=== PATIENT | female | born 1935 | race Caucasian/White ===

== ENCOUNTER 2017-01-18 08:48 | Inpatient (IN) | payer MEDICARE ==
[2017-01-18] MEDS ORDERED: Sodium Chloride 0.9% 1,000 ML IV SCH ×2 (09:30→10:45)
--- NOTE | 2017-01-18 09:34 | EDM.PDOC ---
ED HPI GENERAL MEDICAL PROBLEM - General Chief Complaint: Gastrointestinal Problem Stated Complaint: STOMACH PAIN/VOMITING Time Seen by Provider: 01/18/17 09:15 Source of Information: Reports: Patient, Provider History Limitations: Reports: No Limitations - History of Present Illness INITIAL COMMENTS - FREE TEXT/NARRATIVE: 81-year-old female who has been treated with 3 rounds of antibiotics for "Lyme' s disease" finished her last course 7 days ago. She's had persistent nausea and vomiting with diarrhea for the past 6-8 days. Intermittent low-grade fevers and lower abdominal cramping. She has a mild headache. She has just been waiting for it to go away, but this morning does not feel like it's improving so went into the urgent care clinic and then was sent over to the emergency room. Her vitals are stable but she feels tired. No syncope. Has not seen blood in the diarrhea or emesis. No shortness of breath or chest pain. She has an appointment in 2 days for lab recheck. Duration: Week(s): (Roughly 1 week of symptoms) Severity: Moderate Associated Symptoms: Reports: Fever/Chills, Nausea/Vomiting, Other (Diarrhea) Lower Abdomen Pain Score (Numeric/FACES): 10 - Related Data Allergies Allergy/AdvReac Type Severity Reaction Status Date / Time Penicillins Allergy Intermediate Hives Verified 07/13/15 07:36 adhesive tape Allergy Cannot Verified 07/13/15 07:36 Remember Bleach (Sodium Hypochlorite) Allergy Rash Verified 01/08/16 14:11 doxycycline Allergy Rash Verified 07/13/15 07:36 oxycodone Allergy Cannot Verified 07/13/15 07:36 Remember latex Allergy Blisters Uncoded 07/13/15 07:36 Home Meds: Home Meds Cholecalciferol (Vitamin D3) [Vitamin D3] 2,000 units PO DAILY 08/04/13 [History ] Cyanocobalamin (Vitamin B12) [Vitamin B12] 1,000 mcg PO DAILY 08/04/13 [History] Cyclobenzaprine [Flexeril] 5 mg PO TID PRN 08/04/13 [History] Docusate Sodium [Doc-Q-Lace] 200 mg PO DAILY 08/04/13 [History] Ipratropium/Albuterol Sulfate [Iprat-Albut 0.5-3(2.5) MG/3 ML] 1 ampule NEB QID PRN 08/04/13 [History] Nitroglycerin [Nitrostat] 0.4 mg SL ASDIRECTED PRN 08/04/13 [History] Ramipril [Altace] 10 mg PO DAILY 08/04/13 [History] Magnesium Oxide 500 mg PO DAILY #60 tab 08/10/13 [Rx] Rosuvastatin [Crestor] 20 mg PO DAILY 08/11/14 [History] Acetaminophen [Tylenol] 325 mg PO Q6H PRN 07/11/15 [History] Acetaminophen/HYDROcodone [[place] 325-5 MG] 1 tab PO Q6H PRN 07/11/15 [History] Albuterol/Ipratropium [Combivent Respimat] 1 puff IH Q4H PRN 07/11/15 [History] Bacitracin [Bacitracin Oint] 1 applic TOP BID 07/11/15 [History] Fluticasone/Salmeterol [Advair 500-50] 1 puff INH BID 07/11/15 [History] Ibuprofen 800 mg PO TID PRN 07/11/15 [History] Trolamine Salicylate/Aloe Vera [Aspercreme 10% Cream] 1 applic TP ASDIRECTED PRN 07/11/15 [History] diphenhydrAMINE [Benadryl] 50 mg PO Q6H PRN 07/11/15 [History] Pantoprazole [Protonix] 40 mg PO DAILY #30 tab.cr 01/11/16 [Rx] Past Medical History HEENT History: Reports: Cataract, Impaired Vision, Sinusitis Cardiovascular History: Reports: Arrhythmia, High Cholesterol, Hypertension, [place] Other Cardiovascular History: "fluid around the heart", CHF Respiratory History: Reports: COPD, SOB Gastrointestinal History: Reports: Colon Polyp, GERD Genitourinary History: Reports: None 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 OB/BYN History: cervix stitch with 4 Musculoskeletal History: Reports: Fracture, Osteoarthritis, Osteoporosis, Other (See Below) Other Musculoskeletal History: degeneration of back Endocrine/Metabolic History: Reports: Hyperthyroidism Hematologic History: Reports: Anemia, Blood Transfusion(s), Iron Deficiency Dermatologic History: Reports: Eczema, Psoriasis - Infectious Disease History Infectious Disease History: Reports: Chicken Pox, Measles, Mumps - Past Surgical History HEENT Surgical History: Reports: Cataract Surgery GI Surgical History: Reports: Appendectomy, Colonoscopy, EGD, Hernia Repair/ Other Female Surgical History: Reports: Section Endocrine Surgical History: Reports: Thyroid Biopsy Dermatological Surgical History: Reports: None Social & Family History - Tobacco Use Smoking Status *Q: Former Smoker Years of Tobacco use: 50 Packs/Tins Daily: 0.2 Used Tobacco, but Quit: Yes Month Tobacco Last Used: years ago Second Hand Smoke Exposure: Yes - Caffeine Use Caffeine Use: Reports: Tea - Alcohol Use Days Per Week of Alcohol Use: 0 - Recreational Drug Use Recreational Drug Use: No ED ROS GENERAL - Review of Systems Review Of Systems: See Below Constitutional: Reports: Fever, Chills, Malaise, Weakness HEENT: Reports: No Symptoms Respiratory: Reports: Cough (Chronic). Denies: Shortness of Breath Cardiovascular: Denies: Chest Pain, Palpitations GI/Abdominal: Reports: Abdominal Pain (Lower abdominal cramping which is intermittent), Diarrhea, Nausea, Vomiting : Reports: No Symptoms Skin: Reports: Bruising (Seems to bruise easily which is chronic) Neurological: Reports: Headache Psychiatric: Reports: No Symptoms ED EXAM, GI/ABD - Physical Exam Exam: See Below Exam Limited By: No Limitations General Appearance: Alert, No Apparent Distress Eyes: Bilateral: Normal Appearance (No jaundice), EOMI Throat/Mouth: Normal Inspection Respiratory/Chest: No Respiratory Distress, Rales (Some perihilar rales with coughing) Cardiovascular: Regular Rate, Rhythm GI/Abdominal Exam: Normal Bowel Sounds, Tender (She does have diffuse mild-to- moderate tenderness to palpation across the lower abdomen, no focal tenderness) Neurological: Alert, Oriented, No Motor/Sensory Deficits Psychiatric: Normal Affect, Normal Mood Skin Exam: Warm, Dry Course - Vital Signs Last Recorded V/S: Last Vital Signs Temp 98.9 F 01/18/17 15:52 Pulse 61 01/18/17 15:52 Resp 20 01/18/17 15:52 BP 128/75 01/18/17 15:52 Pulse Ox 98 01/18/17 15:52 - Orders/Labs/Meds Orders: Active Orders 24 hr Category Date Time Status CULTURE STOOL + SHIGATOX [RM] Stat Lab 01/18/17 09:43 Received Medication Orders Acetaminophen (Tylenol) 650 mg PO Q4H PRN PRN Reason: Pain (Mild 1-3)/fever Hydrocodone Bitart/Acetaminophen ([place] 325-5 Mg) 1 tab PO Q6H PRN PRN Reason: Pain Albuterol/Ipratropium (Duoneb 3.0-0.5 Mg/3 Ml) 3 ml NEB QID PRN PRN Reason: Shortness of Breath Cyclobenzaprine HCl (Flexeril) 5 mg PO TID PRN PRN Reason: Spasms Diphenhydramine HCl (Benadryl) 50 mg PO Q6H PRN PRN Reason: Itching Sodium Chloride (Normal Saline) 1,000 mls @ 100 mls/hr IV ASDIRECTED [facility] Last Admin: 01/18/17 14:26 Dose: 100 mls/hr Metronidazole 500 mg/ Premix 100 mls @ 100 mls/hr IV Q8H [facility] Ibuprofen (Motrin) 600 mg PO Q6H PRN PRN Reason: Pain/Fever Lorazepam (Ativan) 0.5 - 1 mg IVPUSH Q4H PRN PRN Reason: Nausea/Vomiting Mometasone Furoate/Formoterol Fumar (Dulera 200-5 Mcg) 2 puff IH BIDRT [facility] Morphine Sulfate (Morphine) 2 - 4 mg IVPUSH Q2H PRN PRN Reason: Pain (severe 7-10) Ondansetron HCl (Zofran Odt) 4 mg PO Q6H PRN PRN Reason: Nausea able to take PO Ondansetron HCl (Zofran) 4 mg IV Q6H PRN PRN Reason: Nausea/Vomiting Pantoprazole Sodium (Protonix) 40 mg PO ACBREAKFAST [facility] Ramipril (Altace) 10 mg PO DAILY [facility] Rosuvastatin Calcium (Crestor) 20 mg PO DAILY [facility] Labs: Laboratory Tests 01/18/17 01/18/17 Range/Units 09:43 09:43 WBC 12.5 H (4.5-11.0) K/uL RBC 5.28 (3.30-5.50) M/uL Hgb 16.3 H D (12.0-15.0) g/dL Hct 48.2 H (36.0-48.0) % MCV 91 (80-98) fL MCH 31 (27-31) pg MCHC 34 (32-36) % Plt Count 209 (150-400) K/uL Neut % (Auto) 85 H (36-66) % Lymph % (Auto) 8 L (24-44) % [place] % (Auto) 6 (2-6) % Eos % (Auto) 1 L (2-4) % Baso % (Auto) 1 (0-1) % Sodium 141 (140-148) mmol/L Potassium 4.4 (3.6-5.2) mmol/L Chloride 107 (100-108) mmol/L Carbon Dioxide 27 (21-32) mmol/L Anion Gap 7.0 (5.0-14.0) mmol/L BUN 23 H D (7-18) mg/dL Creatinine 1.0 (0.6-1.0) mg/dL Est Cr Clr Drug Dosing 32.23 mL/min Estimated GFR (MDRD) 53 L (>60) Glucose 131 H (74-106) mg/dL Calcium 9.4 (8.5-10.1) mg/dL Total Bilirubin 0.9 D (0.2-1.0) mg/dL AST 17 (15-37) U/L ALT 1 L (12-78) U/L Alkaline Phosphatase 84 (46-116) U/L Total Protein 7.6 (6.4-8.2) g/dL Albumin 3.7 (3.4-5.0) g/dL Globulin 3.9 H (2.3-3.5) g/dL Albumin/Globulin Ratio 1.0 L (1.2-2.2) Meds: Medications Generic Name Dose Route Start Last Admin Trade Name Freq PRN Reason Stop Dose Admin Acetaminophen 650 mg 01/18/17 13:36 Tylenol PO Q4H PRN Pain (Mild 1-3)/fever Hydrocodone Bitart/Acetaminophen 1 tab 01/18/17 13:36 [place] 325-5 Mg PO Q6H PRN Pain Albuterol/Ipratropium 3 ml 01/18/17 13:36 Duoneb 3.0-0.5 Mg/3 Ml NEB QID PRN Shortness of Breath Cyclobenzaprine HCl 5 mg 01/18/17 13:53 Flexeril PO TID PRN Spasms Diphenhydramine HCl 50 mg 01/18/17 13:36 Benadryl PO Q6H PRN Itching Sodium Chloride 1,000 mls @ 100 mls/hr 01/18/17 13:36 01/18/17 14:26 Normal Saline IV 100 mls/hr ASDIRECTED SAMUEL Administration Metronidazole 500 mg/ Premix 100 mls @ 100 mls/hr 01/18/17 20:00 IV Q8H [facility]EL Ibuprofen 600 mg 01/18/17 13:36 Motrin PO Q6H PRN Pain/Fever Lorazepam 0.5 - 1 mg 01/18/17 13:36 Ativan IVPUSH Q4H PRN Nausea/Vomiting Mometasone Furoate/Formoterol Fumar 2 puff 01/18/17 21:00 Dulera 200-5 Mcg IH BIDRT [facility] Morphine Sulfate 2 - 4 mg 01/18/17 13:36 Morphine IVPUSH Q2H PRN Pain (severe 7-10) Ondansetron HCl 4 mg 01/18/17 13:36 Zofran Odt PO Q6H PRN Nausea able to take PO Ondansetron HCl 4 mg 01/18/17 13:36 Zofran IV Q6H PRN Nausea/Vomiting Pantoprazole Sodium 40 mg 01/19/17 07:30 Protonix PO ACBREAKFAST [facility] Ramipril 10 mg 01/19/17 09:00 Altace PO DAILY [facility] Rosuvastatin Calcium 20 mg 01/19/17 09:00 Crestor PO DAILY [facility] Discontinued Medications Generic Name Dose Route Start Last Admin Trade Name Freq PRN Reason Stop Dose Admin Sodium Chloride 1,000 mls @ 1,000 mls/hr 01/18/17 09:30 01/18/17 09:44 Normal Saline IV 1,000 mls/hr ASDIRECTED SAMUEL Administration Sodium Chloride 1,000 mls @ 500 mls/hr 01/18/17 10:45 01/18/17 11:04 Normal Saline IV 500 mls/hr ASDIRECTED [facility]UEL Administration Metronidazole 500 mg/ Premix 100 mls @ 100 mls/hr 01/18/17 12:30 01/18/17 12: 40 IV 100 mls/hr Q8H [facility]UEL Administration - Re-Assessments/Exams Free Text/Narrative Re-Assessment/Exam: 01/18/17 09:34 Stool was obtained for C. difficile testing, WBC and culture. An IV was started and the patient will be given 1 L of normal saline after a CBC and CMP are drawn. 01/18/17 11:06 Blood work was fairly reassuring but her stool did show many WBCs and ultimately was positive for C. difficile. We discussed outpatient versus inpatient treatment, I discussed this with the hospitalist and she'll be admitted for at least 1-2 days of treatment as an inpatient. Departure - Departure Time of Disposition: 13:17 Disposition: Admitted As Inpatient 67 Condition: Fair Clinical Impression: Vomiting, Diarrhea, C. difficile enteritis - Discharge Information - My Orders Last 24 Hours: My Active Orders 01/18/17 09:43 CULTURE STOOL + SHIGATOX [RM] Stat - Assessment/Plan Last 24 Hours: My Active Orders 01/18/17 09:43 CULTURE STOOL + SHIGATOX [RM] Stat
[2017-01-18] MEDS ORDERED: metroNIDAZOLE/Normal Saline 500 MG in Premix Bag 1 BAG IV SCH ×2 (12:15→12:30)
--- NOTE | 2017-01-18 12:28 | PCM.HP ---
H&P History of Present Illness - General Date of Service: 01/18/17 Admit Problem/Dx: Admission Diagnosis/Problem Admission Diagnosis/Problem Clostridium difficile diarrhea Source of Information: Patient, Family, Provider History Limitations: Reports: No Limitations - History of Present Illness Initial Comments - Free Text/Narative: Rosaura presents to the emergency room today with complaints of nausea, vomiting and diarrhea. Symptoms have been present for approximately the last week and have been progressively getting worse. She reports multiple episodes of vomiting each day as well as multiple episodes of watery diarrhea. She reports mild to moderate left lower quadrant abdominal pain that is crampy in nature. This comes and goes but is at its worst around the time of a bowel movement. Her usual pain medications have not helped her abdominal pain. No obvious triggers to make things worse other than the bowel movements. She has not had much to eat or drink in the past few days other than some dietary supplements. She has subjective fevers but no chills. She does not complain of chest pain, shortness of breath or change in bladder habits. She does not have a cough. She did recently complete a prolonged course of antibiotics for Lyme disease and also had antibiotics for what appears to be a urinary tract infection. Workup in the emergency room revealed significant dehydration as well as stool sample positive for Clostridium difficile. With her vomiting and poor intake I think she would benefit from hydration and IV medications to stabilize her condition before outpatient management is initiated. Lower Abdomen Pain Score (Numeric/FACES): 10 - Related Data Allergies/Adverse Reactions: Allergies Allergy/AdvReac Type Severity Reaction Status Date / Time Penicillins Allergy Intermediate Hives Verified 07/13/15 07:36 adhesive tape Allergy Cannot Verified 07/13/15 07:36 Remember Bleach (Sodium Hypochlorite) Allergy Rash Verified 01/08/16 14:11 doxycycline Allergy Rash Verified 07/13/15 07:36 oxycodone Allergy Cannot Verified 07/13/15 07:36 Remember latex Allergy Blisters Uncoded 07/13/15 07:36 Home Medications: Home Meds Cholecalciferol (Vitamin D3) [Vitamin D3] 2,000 units PO DAILY 08/04/13 [History ] Cyanocobalamin (Vitamin B12) [Vitamin B12] 1,000 mcg PO DAILY 08/04/13 [History] Cyclobenzaprine [Flexeril] 5 mg PO TID PRN 08/04/13 [History] Docusate Sodium [Doc-Q-Lace] 200 mg PO DAILY 08/04/13 [History] Ipratropium/Albuterol Sulfate [Iprat-Albut 0.5-3(2.5) MG/3 ML] 1 ampule NEB QID PRN 08/04/13 [History] Nitroglycerin [Nitrostat] 0.4 mg SL ASDIRECTED PRN 08/04/13 [History] Ramipril [Altace] 10 mg PO DAILY 08/04/13 [History] Magnesium Oxide 500 mg PO DAILY #60 tab 08/10/13 [Rx] Rosuvastatin [Crestor] 20 mg PO DAILY 08/11/14 [History] Acetaminophen [Tylenol] 325 mg PO Q6H PRN 07/11/15 [History] Acetaminophen/HYDROcodone [[place] 325-5 MG] 1 tab PO Q6H PRN 07/11/15 [History] Albuterol/Ipratropium [Combivent Respimat] 1 puff IH Q4H PRN 07/11/15 [History] Bacitracin [Bacitracin Oint] 1 applic TOP BID 07/11/15 [History] Fluticasone/Salmeterol [Advair 500-50] 1 puff INH BID 07/11/15 [History] Ibuprofen 800 mg PO TID PRN 07/11/15 [History] Trolamine Salicylate/Aloe Vera [Aspercreme 10% Cream] 1 applic TP ASDIRECTED PRN 07/11/15 [History] diphenhydrAMINE [Benadryl] 50 mg PO Q6H PRN 07/11/15 [History] Pantoprazole [Protonix] 40 mg PO DAILY #30 tab.cr 01/11/16 [Rx] Past Medical History HEENT History: Reports: Cataract, Impaired Vision, Sinusitis Cardiovascular History: Reports: Arrhythmia, High Cholesterol, Hypertension, [place] Other Cardiovascular History: "fluid around the heart", CHF Respiratory History: Reports: COPD, SOB Gastrointestinal History: Reports: Colon Polyp, GERD Genitourinary History: Reports: 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 with 4 Musculoskeletal History: Reports: Fracture, Osteoarthritis, Osteoporosis, Other (See Below) Other Musculoskeletal History: degeneration of back Endocrine/Metabolic History: Reports: Hyperthyroidism Hematologic History: Reports: Anemia, Blood Transfusion(s), Iron Deficiency Dermatologic History: Reports: Eczema, Psoriasis - Infectious Disease History Infectious Disease History: Reports: Chicken Pox, Measles, Mumps - Past Surgical History HEENT Surgical History: Reports: Cataract Surgery GI Surgical History: Reports: Appendectomy, Colonoscopy, EGD, Hernia Repair/ Other Female Surgical History: Reports: Section Endocrine Surgical History: Reports: Thyroid Biopsy Dermatological Surgical History: Reports: None Social & Family History - Family History Oncologic: Reports: Colon (mom) - Tobacco Use Smoking Status *Q: Former Smoker Years of Tobacco use: 50 Packs/Tins Daily: 0.2 Used Tobacco, but Quit: Yes Month Tobacco Last Used: years ago Second Hand Smoke Exposure: Yes - Caffeine Use Caffeine Use: Reports: Tea - Alcohol Use Days Per Week of Alcohol Use: 0 - Recreational Drug Use Recreational Drug Use: No H&P Review of Systems - Review of Systems: Review Of Systems: See Below Free Text/Narrative: A complete 12 point review of systems was obtained. Pertinent positives and negatives are noted in the history of present illness. All other systems were reviewed and were negative except as noted. Exam - Exam Exam: See Below - Vital Signs Vital Signs: Last Vital Signs Temp 36.5 C 01/18/17 10:33 Pulse 67 01/18/17 10:33 Resp 18 01/18/17 10:33 BP 132/74 01/18/17 10:33 Pulse Ox 95 01/18/17 10:33 Weight: 53 kg - Exam Quality Assessment: No: Supplemental Oxygen General: Alert, Oriented, Cooperative. No: Mild Distress HEENT: Conjunctiva Clear. No: Mucosa Moist & Celoron (dry), Scleral Icterus Neck: Supple, Trachea Midline. No: Lymphadenopathy Lungs: Normal Respiratory Effort, Wheezing (mild exp wheezing ) Cardiovascular: Regular Rate, Regular Rhythm. No: Systolic Murmur GI/Abdominal Exam: Normal Bowel Sounds, Soft, No Distention, Tender (mild LLQ) Back Exam: Normal Inspection, Full Range of Motion Extremities: Normal Inspection, No Pedal Edema. No: Increased Warmth Peripheral Pulses: 2+: Dorsalis Pedis (L), Dorsalis Pedis (R) Skin: Warm, Dry Neuro Extensive - Mental Status: Alert, Oriented x3, Nl Response to Commands Neuro Extensive - Motor, Sensory, Reflexes: CN II-XII Intact. No: Dysarthria, Abnormal Motor, Tremor Psychiatric: Alert, Normal Affect - Patient Data Lab Results Last 24 hrs: Laboratory Results - last 24 hr 01/18/17 01/18/17 Range/Units 09:43 09:43 WBC 12.5 H (4.5-11.0) K/uL RBC 5.28 (3.30-5.50) M/uL Hgb 16.3 H D (12.0-15.0) g/dL Hct 48.2 H (36.0-48.0) % MCV 91 (80-98) fL MCH 31 (27-31) pg MCHC 34 (32-36) % Plt Count 209 (150-400) K/uL Neut % (Auto) 85 H (36-66) % Lymph % (Auto) 8 L (24-44) % [place] % (Auto) 6 (2-6) % Eos % (Auto) 1 L (2-4) % Baso % (Auto) 1 (0-1) % Sodium 141 (140-148) mmol/L Potassium 4.4 (3.6-5.2) mmol/L Chloride 107 (100-108) mmol/L Carbon Dioxide 27 (21-32) mmol/L Anion Gap 7.0 (5.0-14.0) mmol/L BUN 23 H D (7-18) mg/dL Creatinine 1.0 (0.6-1.0) mg/dL Est Cr Clr Drug Dosing 32.23 mL/min Estimated GFR (MDRD) 53 L (>60) Glucose 131 H (74-106) mg/dL Calcium 9.4 (8.5-10.1) mg/dL Total Bilirubin 0.9 D (0.2-1.0) mg/dL AST 17 (15-37) U/L ALT 1 L (12-78) U/L Alkaline Phosphatase 84 (46-116) U/L Total Protein 7.6 (6.4-8.2) g/dL Albumin 3.7 (3.4-5.0) g/dL Globulin 3.9 H (2.3-3.5) g/dL Albumin/Globulin Ratio 1.0 L (1.2-2.2) Result Diagrams: 01/18/17 09:43 01/18/17 09:43 [facility] Results Last 24 hrs: Microbiology 01/18/17 09:43 Clostridium difficile (PCR) - Final Stool / Feces Positive C. Diff Toxin 01/18/17 09:43 Stool for WBCs - Final Stool / Feces *Q Meaningful Use (ADM) - VTE *Q VTE Criteria *Q: - VTE Risk Assess *Q Each Risk Factor Represents 1 Point: Abnormal Pulmonary Function (COPD) Total Score 1 Point Risk Factors: 1 Each Risk Factor Represents 2 Points: None Total Score 2 Point Risk Factors: 0 Each Risk Factor Represents 3 Points: Age 75 Years or Greater Total Score 3 Point Risk Factors: 3 Each Risk Factor Represents 5 Points: None Total Score 5 Point Risk Factors: 0 Venous Thromboembolism Risk Factor Score *Q: 4 - Stroke *Q Stroke Criteria *Q: - AMI *Q AMI Criteria *Q: - Problem List (1) Clostridium difficile colitis SNOMED Code(s): 957604588 ICD Code: A04.7 - ENTEROCOLITIS DUE TO CLOSTRIDIUM DIFFICILE Status: Acute Current Visit: Yes (2) COPD, Moderate chronic obstructive pulmonary disease SNOMED Code(s): 169225749 ICD Code: J44.9 - CHRONIC OBSTRUCTIVE PULMONARY DISEASE, UNSPECIFIED Status : Chronic Priority: Medium Current Visit: No Problem List Initiated/Reviewed/Updated: Yes Orders Last 24hrs: Active Orders 24 hr Category Date Time Status Patient Status Manage Transfer [TRANSFER] Routine ADT 01/18/17 12:14 Ordered CULTURE STOOL + SHIGATOX [RM] Stat Lab 01/18/17 09:43 Received Sodium Chloride 0.9% [Normal Saline] 1,000 ml Med 01/18/17 09:30 Active IV ASDIRECTED Sodium Chloride 0.9% [Normal Saline] 1,000 ml Med 01/18/17 10:45 Active IV ASDIRECTED metroNIDAZOLE/Normal Saline [Flagyl 500 MG in NS 100 ML Med 01/18/17 12:30 Active ] 500 mg Premix Bag 1 bag IV Q8H Resuscitation Status Routine Resus Stat 01/18/17 12:16 Ordered Medication Orders Sodium Chloride (Normal Saline) 1,000 mls @ 1,000 mls/hr IV ASDIRECTED SAMUEL Last Admin: 01/18/17 09:44 Dose: 1,000 mls/hr Sodium Chloride (Normal Saline) 1,000 mls @ 500 mls/hr IV ASDIRECTED SAMUEL Last Admin: 01/18/17 11:04 Dose: 500 mls/hr Metronidazole 500 mg/ Premix 100 mls @ 100 mls/hr IV Q8H [facility] Assessment/Plan Comment:: Assessment and plan - Clostridium difficile colitis - patient has had recent antibiotic therapy. Moderate dehydration but no evidence for sepsis. Not safe for outpatient management with her blood so as of vomiting and dehydration. -IV metronidazole -IV fluids -Pain control -Nausea medication -Clear liquids -Probiotics -Contact precautions COPD - Chronic, stable and not oxygen dependent. No evidence for acute exacerbation. -Continue home medications [] - [] - Maintenance issues - - DVT prophylaxis - mechanical - GI prophylaxis - PPI - Nutrition - clear liquids - Hsu catheter - not indicated CODE STATUS - full code Admission justification - This patient will be admitted for inpatient services and is medically appropriate meeting medical necessity for inpatient admission as outlined in my documentation. I reasonably expect the patient will require inpatient services that span a period time over 2 midnights. I reasonably expect this patient to be discharged or transferred within 96 hours [facility]. Disposition - anticipate discharge to home after the hospital stay Primary care physician - Dr. Rj Mrarero M.D.
[2017-01-18] MEDS ORDERED: Ondansetron 4 MG Tab.DIS PO PRN (13:36)
[2017-01-18] MEDS ORDERED: Acetaminophen 325 MG Tab PO PRN (13:36)
[2017-01-18] MEDS ORDERED: Acetaminophen/HYDROcodone 325-5 MG Tab PO PRN (13:36)
[2017-01-18] MEDS ORDERED: LORazepam 2 MG/ML MDV IVPUSH PRN (13:36)
[2017-01-18] MEDS ORDERED: Non-Formulary Medication 1 Each (Cyclobenzaprine [Flexeril] 5 MG) PO PRN (13:36)
[2017-01-18] MEDS ORDERED: Morphine 2 MG/ML Syringe IVPUSH PRN (13:36)
[2017-01-18] MEDS ORDERED: Ondansetron 4 MG/2 ML SDV IV PRN (13:36)
[2017-01-18] MEDS ORDERED: diphenhydrAMINE 25 MG Cap PO PRN (13:36)
[2017-01-18] MEDS ORDERED: Albuterol/Ipratropium 3.0-0.5 MG/3 ML Neb Soln NEB PRN (13:36)
[2017-01-18] MEDS ORDERED: Ibuprofen 600 MG Tab PO PRN (13:36)
[2017-01-18] MEDS ORDERED: Cyclobenzaprine 10 MG Tab PO PRN (13:53)
[2017-01-18] MEDS: Sodium Chloride 0.9% 1,000 ML IV SCH (14:26)
[2017-01-18] MEDS: metroNIDAZOLE/Normal Saline 500 MG in Premix Bag 1 BAG IV SCH (19:32)
[2017-01-18] MEDS: Formoterol/Mometasone 200-5 MCG 8.8 GM Inhaler IH SCH (20:38)
[2017-01-18] MEDS ORDERED: Non-Formulary Medication 1 Each (Fluticasone/Salmeterol [Advair 500-50] 1 PUFF) INH SCH (21:00)
[2017-01-19] MEDS: metroNIDAZOLE/Normal Saline 500 MG in Premix Bag 1 BAG IV SCH ×2 (03:21→12:39)
[2017-01-19] MEDS: Formoterol/Mometasone 200-5 MCG 8.8 GM Inhaler IH SCH ×2 (07:55→20:03)
[2017-01-19] MEDS: Pantoprazole 40 MG Tab.CR PO SCH (07:56)
[2017-01-19] MEDS: Rosuvastatin 10 MG Tab PO SCH (08:00)
[2017-01-19] MEDS ORDERED: Non-Formulary Medication 1 Each (Rosuvastatin [Crestor] 20 MG) PO SCH (09:00)
[2017-01-19] MEDS: Potassium Chloride 20 MEQ, Lidocaine 1% 2 ML in Sodium Chloride 0.9% 100 ML IV SCH ×2 (11:09→14:20)
[2017-01-19] MEDS: Sodium Chloride 0.9% 1,000 ML IV SCH (12:36)
--- NOTE | 2017-01-19 16:49 | PCM.PN ---
- General Info Date of Service: 01/19/17 Functional Status: Reports: Pain Controlled, Tolerating Diet - Review of Systems General: Denies: Fever Gastrointestinal: Denies: Diarrhea Systems Review Comment:: No acute events overnight. She has not had any diarrhea and has not had any vomiting. She has tolerated clear liquids well with no increase in symptoms. She has been afebrile. Tolerating current management. Clinically she feels much better today. - Patient Data Vitals - Most Recent: Last Vital Signs Temp 36.4 C 01/19/17 14:37 Pulse 51 L 01/19/17 14:37 Resp 18 01/19/17 14:37 BP 129/76 01/19/17 14:37 Pulse Ox 97 01/19/17 14:37 Weight - Most Recent: 53 kg I&O - Last 24 Hours: Intake & Output 01/19/17 01/19/17 01/19/17 06:59 14:59 22:59 Intake Total 1040 700 Output Total 1600 1100 200 Balance -560 -400 -200 Lab Results Last 24 Hours: Laboratory Results - last 24 hr 01/19/17 01/19/17 Range/Units 05:11 05:48 WBC 6.4 (4.5-11.0) K/uL RBC 4.21 (3.30-5.50) M/uL Hgb 13.0 D (12.0-15.0) g/dL Hct 38.9 (36.0-48.0) % MCV 92 (80-98) fL MCH 31 (27-31) pg MCHC 33 (32-36) % Plt Count 159 (150-400) K/uL Sodium 143 (140-148) mmol/L Potassium 3.4 L (3.6-5.2) mmol/L Chloride 111 H (100-108) mmol/L Carbon Dioxide 24 (21-32) mmol/L Anion Gap 11.4 (5.0-14.0) mmol/L BUN 14 (7-18) mg/dL Creatinine 0.7 (0.6-1.0) mg/dL Est Cr Clr Drug Dosing 46.04 mL/min Estimated GFR (MDRD) > 60 (>60) Glucose 88 (74-106) mg/dL Calcium 8.2 L (8.5-10.1) mg/dL Med Orders - Current: Current Medications Acetaminophen (Tylenol) 650 mg PO Q4H PRN PRN Reason: Pain (Mild 1-3)/fever Hydrocodone Bitart/Acetaminophen ([place] 325-5 Mg) 1 tab PO Q6H PRN PRN Reason: Pain Albuterol/Ipratropium (Duoneb 3.0-0.5 Mg/3 Ml) 3 ml NEB QID PRN PRN Reason: Shortness of Breath Cyclobenzaprine HCl (Flexeril) 5 mg PO TID PRN PRN Reason: Spasms Diphenhydramine HCl (Benadryl) 50 mg PO Q6H PRN PRN Reason: Itching Sodium Chloride (Normal Saline) 1,000 mls @ 100 mls/hr IV ASDIRECTED [facility] Last Admin: 01/19/17 12:36 Dose: 100 mls/hr Metronidazole 500 mg/ Premix 100 mls @ 100 mls/hr IV Q8H [facility] Last Admin: 01/19/17 12:39 Dose: 100 mls/hr Ibuprofen (Motrin) 600 mg PO Q6H PRN PRN Reason: Pain/Fever Lorazepam (Ativan) 0.5 - 1 mg IVPUSH Q4H PRN PRN Reason: Nausea/Vomiting Mometasone Furoate/Formoterol Fumar (Dulera 200-5 Mcg) 2 puff IH BIDRT [facility] Last Admin: 01/19/17 07:55 Dose: 2 puff Morphine Sulfate (Morphine) 2 - 4 mg IVPUSH Q2H PRN PRN Reason: Pain (severe 7-10) Ondansetron HCl (Zofran Odt) 4 mg PO Q6H PRN PRN Reason: Nausea able to take PO Ondansetron HCl (Zofran) 4 mg IV Q6H PRN PRN Reason: Nausea/Vomiting Pantoprazole Sodium (Protonix) 40 mg PO ACBREAKFAST [facility] Last Admin: 01/19/17 07:56 Dose: 40 mg Ramipril (Altace) 10 mg PO DAILY [facility] Last Admin: 01/19/17 07:59 Dose: 10 mg Rosuvastatin Calcium (Crestor) 20 mg PO DAILY [facility] Last Admin: 01/19/17 08:00 Dose: 20 mg Discontinued Medications Sodium Chloride (Normal Saline) 1,000 mls @ 1,000 mls/hr IV ASDIRECTED [facility] Last Admin: 01/18/17 09:44 Dose: 1,000 mls/hr Sodium Chloride (Normal Saline) 1,000 mls @ 500 mls/hr IV ASDIRECTED [facility] Last Admin: 01/18/17 11:04 Dose: 500 mls/hr Metronidazole 500 mg/ Premix 100 mls @ 100 mls/hr IV Q8H [facility] Last Admin: 01/18/17 12:40 Dose: 100 mls/hr Potassium Chloride 20 meq/Lidocaine HCl 2 ml/ Sodium Chloride 112 mls @ 56 mls/ hr IV Q2H [facility] Stop: 01/19/17 14:29 Last Admin: 01/19/17 14:20 Dose: 56 mls/hr - Exam Quality Assessment: No: Supplemental Oxygen General: Alert, Oriented, Cooperative, No Acute Distress Neck: Supple Lungs: Normal Respiratory Effort Cardiovascular: Regular Rate, Regular Rhythm GI/Abdominal Exam: Soft, No Distention Extremities: Normal Inspection, No Pedal Edema Skin: Warm, Dry Psy/Mental Status: Alert, Normal Affect - Problem List & Annotations (1) Clostridium difficile colitis SNOMED Code(s): 125509243 Code(s): A04.7 - ENTEROCOLITIS DUE TO CLOSTRIDIUM DIFFICILE Status: Acute Current Visit: Yes (2) COPD, Moderate chronic obstructive pulmonary disease SNOMED Code(s): 602705832 Code(s): J44.9 - CHRONIC OBSTRUCTIVE PULMONARY DISEASE, UNSPECIFIED Status : Chronic Priority: Medium Current Visit: No - Problem List Review Problem List Initiated/Reviewed/Updated: Yes - My Orders Last 24 Hours: My Active Orders 01/18/17 20:00 metroNIDAZOLE/Normal Saline [Flagyl 500 MG in NS 100 ML] 500 mg Premix Bag 1 bag IV Q8H 01/18/17 21:00 Mometasone/Formoterol [Dulera 200-5 MCG] 2 puff IH BIDRT 01/19/17 09:00 Rosuvastatin [Crestor] 20 mg PO DAILY 01/19/17 16:48 Convert IV to Saline Lock [OM.PC] Routine 01/19/17 21:00 metroNIDAZOLE 500 mg PO TID 01/19/17 Dinner Regular Diet [DIET] - Plan Plan:: Assessment and plan - Clostridium difficile colitis - dramatic clinical improvement overnight with essentially resolution of vomiting and significant improvement in her diarrhea. Tolerating clear liquids so far. -IV metronidazole, transition to oral medications later in the day -Saline lock IV fluids -Pain control -Nausea medication -Advance diet this afternoon -Probiotics -Contact precautions COPD - Chronic, stable and not oxygen dependent. No evidence for acute exacerbation. -Continue home medications Maintenance issues - - DVT prophylaxis - mechanical - GI prophylaxis - PPI - Nutrition - clear liquids Disposition - anticipate discharge to home after the hospital stay, likely tomorrow if stable overnight Efrem Marrero M.D.
[2017-01-19] MEDS: metroNIDAZOLE 250 MG Tab PO SCH (20:07)
[2017-01-20 06:53] VITALS: BP 151/73
[2017-01-20] MEDS: Pantoprazole 40 MG Tab.CR PO SCH (07:07)
[2017-01-20] MEDS: Formoterol/Mometasone 200-5 MCG 8.8 GM Inhaler IH SCH (07:07)
[2017-01-20] MEDS: Rosuvastatin 10 MG Tab PO SCH (09:27)
[2017-01-20] MEDS: metroNIDAZOLE 250 MG Tab PO SCH (09:28)
--- NOTE | 2017-01-20 11:03 | PCM.DCSUM1 ---
Discharge Summary - Hospital Course Brief History: Ms. Domnigo is an 81-year-old woman who was admitted through the emergency department with abdominal pain, nausea vomiting, and diarrhea secondary to C. difficile colitis. - Discharge Data Discharge Date: 01/20/17 Discharge Disposition: Home, Self-Care 01 Condition: Fair - Discharge Diagnosis/Problem(s) (1) Vomiting SNOMED Code(s): 714273578 ICD Code: R11.10 - VOMITING, UNSPECIFIED Status: Acute Current Visit: Yes (2) Diarrhea SNOMED Code(s): 87378438 ICD Code: R19.7 - DIARRHEA, UNSPECIFIED Status: Acute Current Visit: Yes (3) Clostridium difficile colitis SNOMED Code(s): 144602177 ICD Code: A04.7 - ENTEROCOLITIS DUE TO CLOSTRIDIUM DIFFICILE Status: Acute Current Visit: Yes - Patient Summary/Data Hospital Course: Ms. Domingo is an 81-year-old woman who's had recent difficulty with fevers, felt to have probable tickborne illness and had received 2 courses of oral doxycycline. For a few days prior to admission developed diarrhea, abdominal pain, as well as nausea and vomiting. On evaluation in the emergency department , stool was positive for C. difficile. Was felt that her symptoms were likely related to Clostridium difficile colitis. She was started on oral Flagyl as well as IV fluids for hydration and antiemetic therapy. Over the next 2 days of hospitalization she was noted to have no significant temperature elevations and had no further difficulty with diarrhea. By the day of discharge her abdominal pain had resolved and she had no further nausea vomiting was tolerating a regular diet. She will remain on a regular diet and activity will be as tolerated. She will receive an additional 12 days of oral antibiotic therapy with Flagyl 500 mg 3 times a day. She is also encouraged to take a probiotic 2 tablets twice daily for at least the next month. Follow-up appointment will be scheduled with Dr. De La Rosa within one week. - Patient Instructions Diet: Usual Diet as Tolerated Activity: As Tolerated Other/Special Instructions: Please schedule follow-up appointment with Dr. De La Rosa within one week. - Discharge Plan Prescriptions/Med Rec: Lactobacillus Acidophilus [Probiotic] 2 each PO BID #120 capsule metroNIDAZOLE 500 mg PO TID #36 tablet Home Medications: Home Meds Cholecalciferol (Vitamin D3) [Vitamin D3] 2,000 units PO DAILY 08/04/13 [History ] Cyanocobalamin (Vitamin B12) [Vitamin B12] 1,000 mcg PO DAILY 08/04/13 [History] Cyclobenzaprine [Flexeril] 5 mg PO TID PRN 08/04/13 [History] Docusate Sodium [Doc-Q-Lace] 200 mg PO DAILY 08/04/13 [History] Ipratropium/Albuterol Sulfate [Iprat-Albut 0.5-3(2.5) MG/3 ML] 1 ampule NEB QID PRN 08/04/13 [History] Nitroglycerin [Nitrostat] 0.4 mg SL ASDIRECTED PRN 08/04/13 [History] Ramipril [Altace] 10 mg PO DAILY 08/04/13 [History] Magnesium Oxide 500 mg PO DAILY #60 tab 08/10/13 [Rx] Rosuvastatin [Crestor] 20 mg PO DAILY 08/11/14 [History] Acetaminophen [Tylenol] 325 mg PO Q6H PRN 07/11/15 [History] Acetaminophen/HYDROcodone [[place] 325-5 MG] 1 tab PO Q6H PRN 07/11/15 [History] Albuterol/Ipratropium [Combivent Respimat] 1 puff IH Q4H PRN 07/11/15 [History] Bacitracin [Bacitracin Oint] 1 applic TOP BID 07/11/15 [History] Fluticasone/Salmeterol [Advair 500-50] 1 puff INH BID 07/11/15 [History] Ibuprofen 800 mg PO TID PRN 07/11/15 [History] Trolamine Salicylate/Aloe Vera [Aspercreme 10% Cream] 1 applic TP ASDIRECTED PRN 07/11/15 [History] diphenhydrAMINE [Benadryl] 50 mg PO Q6H PRN 07/11/15 [History] Pantoprazole [ProTONIX] 40 mg PO DAILY #30 tab.cr 01/11/16 [Rx] Lactobacillus Acidophilus [Probiotic] 2 each PO BID #120 capsule 01/20/17 [Rx] metroNIDAZOLE 500 mg PO TID #36 tablet 01/20/17 [Rx] Referrals: Maurice De La Rosa MD [Primary Care Provider] - - Patient Data Vitals - Most Recent: Last Vital Signs Temp 98.2 F 01/20/17 06:52 Pulse 63 01/20/17 06:52 Resp 18 01/20/17 06:52 BP 151/73 H 01/20/17 09:28 Pulse Ox 95 01/20/17 06:52 Weight - Most Recent: 128 lb 8.013 oz I&O - Last 24 hours: Intake & Output 01/19/17 01/20/17 01/20/17 22:59 06:59 14:59 Intake Total 1737 480 Output Total 200 1000 Balance 1537 -1000 480 Med Orders - Current: Current Medications Acetaminophen (Tylenol) 650 mg PO Q4H PRN PRN Reason: Pain (Mild 1-3)/fever Hydrocodone Bitart/Acetaminophen ([place] 325-5 Mg) 1 tab PO Q6H PRN PRN Reason: Pain Albuterol/Ipratropium (Duoneb 3.0-0.5 Mg/3 Ml) 3 ml NEB QID PRN PRN Reason: Shortness of Breath Cyclobenzaprine HCl (Flexeril) 5 mg PO TID PRN PRN Reason: Spasms Diphenhydramine HCl (Benadryl) 50 mg PO Q6H PRN PRN Reason: Itching Ibuprofen (Motrin) 600 mg PO Q6H PRN PRN Reason: Pain/Fever Metronidazole (Metronidazole) 500 mg PO TID [facility] Last Admin: 01/20/17 09:28 Dose: 500 mg Mometasone Furoate/Formoterol Fumar (Dulera 200-5 Mcg) 2 puff IH BIDRT [facility] Last Admin: 01/20/17 07:07 Dose: 2 puff Morphine Sulfate (Morphine) 2 - 4 mg IVPUSH Q2H PRN PRN Reason: Pain (severe 7-10) Ondansetron HCl (Zofran Odt) 4 mg PO Q6H PRN PRN Reason: Nausea able to take PO Ondansetron HCl (Zofran) 4 mg IV Q6H PRN PRN Reason: Nausea/Vomiting Pantoprazole Sodium (Protonix) 40 mg PO ACBREAKFAST [facility] Last Admin: 01/20/17 07:07 Dose: 40 mg Ramipril (Altace) 10 mg PO DAILY [facility] Last Admin: 01/20/17 09:28 Dose: 10 mg Rosuvastatin Calcium (Crestor) 20 mg PO DAILY [facility] Last Admin: 01/20/17 09:27 Dose: 20 mg Discontinued Medications Sodium Chloride (Normal Saline) 1,000 mls @ 1,000 mls/hr IV ASDIRECTED [facility] Last Admin: 01/18/17 09:44 Dose: 1,000 mls/hr Sodium Chloride (Normal Saline) 1,000 mls @ 500 mls/hr IV ASDIRECTED [facility] Last Admin: 01/18/17 11:04 Dose: 500 mls/hr Metronidazole 500 mg/ Premix 100 mls @ 100 mls/hr IV Q8H [facility] Last Admin: 01/18/17 12:40 Dose: 100 mls/hr Sodium Chloride (Normal Saline) 1,000 mls @ 100 mls/hr IV ASDIRECTED [facility] Last Admin: 01/19/17 12:36 Dose: 100 mls/hr Metronidazole 500 mg/ Premix 100 mls @ 100 mls/hr IV Q8H [facility] Last Admin: 01/19/17 12:39 Dose: 100 mls/hr Potassium Chloride 20 meq/Lidocaine HCl 2 ml/ Sodium Chloride 112 mls @ 56 mls/ hr IV Q2H [facility] Stop: 01/19/17 14:29 Last Admin: 01/19/17 14:20 Dose: 56 mls/hr Lorazepam (Ativan) 0.5 - 1 mg IVPUSH Q4H PRN PRN Reason: Nausea/Vomiting *Q Meaningful Use (DIS) - VTE *Q VTE Criteria *Q: - Stroke *Q Stroke Criteria *Q: - AMI *Q AMI Criteria *Q:
== END 2017-01-20 14:10 | disposition home or self-care (01) | DRG 373 ==
LOC: JP.ED 08:48 → JP.MS 12:14
PROVIDERS: ADMIT Internal Medicine; ATTEND Hospitalist
DX: A04.7 Enterocolitis due to Clostridium difficile (principal); E86.0 Dehydration; I11.0 Hypertensive heart disease with heart failure; I50.9 Heart failure, unspecified; J44.9 Chronic obstructive pulmonary disease, unspecified; Z87.891 Personal history of nicotine dependence; R11.2 Nausea with vomiting, unspecified; R19.7 Diarrhea, unspecified; R10.9 Unspecified abdominal pain; B94.8 Sequelae of other specified infectious and parasitic diseases; Z92.29 Personal history of other drug therapy; M19.90 Unspecified osteoarthritis, unspecified site; K21.9 Gastro-esophageal reflux disease without esophagitis; I25.2 Old myocardial infarction; E78.00 Pure hypercholesterolemia, unspecified; Z91.040 Latex allergy status; Z88.5 Allergy status to narcotic agent; Z88.0 Allergy status to penicillin; Z91.048 Other nonmedicinal substance allergy status
CPT/HCPCS: 36415; 80053; 85025; 87046; 87493; 87899 ×2; 89055; 96361; 99285; J7040 ×2; 80048; 85027; 96365; 99284; A9270-GY; J3480; J7030

== ENCOUNTER 2017-05-14 15:40 | Emergency (ER) | payer MEDICARE ==
[2017-05-14 16:00] VITALS: BP 166/81
--- NOTE | 2017-05-14 17:05 | EDM.PDOC ---
ED HPI GENERAL MEDICAL PROBLEM - General Chief Complaint: General Stated Complaint: FALL AT HOME Time Seen by Provider: 05/14/17 16:30 Source of Information: Reports: Patient History Limitations: Reports: No Limitations - History of Present Illness INITIAL COMMENTS - FREE TEXT/NARRATIVE: 82-year-old female who took a tumble at home earlier today, is complaining of some right leg pain, right lateral chest pain and has an abrasion on the top of her nose. She still is ambulating around the house but having pain with weightbearing and when her son saw she was struggling he suggested she be checked out. She was brought in by private car and was able to get into a wheelchair without significant difficulties. No loss of consciousness despite an abrasion on her nose. Onset: Sudden Duration: Hour(s): (About 2-3 hours ago) Location: Reports: Face, Chest, Lower Extremity, Right Severity: Mild Associated Symptoms: Reports: No Other Symptoms nose Pain Score (Numeric/FACES): 8 - Related Data Allergies Allergy/AdvReac Type Severity Reaction Status Date / Time Penicillins Allergy Intermediate Hives Verified 05/14/17 17:55 adhesive tape Allergy Cannot Verified 05/14/17 17:55 Remember Bleach (Sodium Hypochlorite) Allergy Rash Verified 05/14/17 17:55 doxycycline Allergy Rash Verified 05/14/17 17:55 oxycodone Allergy Cannot Verified 05/14/17 17:55 Remember latex Allergy Blisters Uncoded 05/14/17 17:55 Home Meds: Home Meds Cholecalciferol (Vitamin D3) [Vitamin D3] 2,000 units PO DAILY 08/04/13 [History ] Cyanocobalamin (Vitamin B12) [Vitamin B12] 1,000 mcg PO DAILY 08/04/13 [History] Cyclobenzaprine [Flexeril] 5 mg PO TID PRN 08/04/13 [History] Docusate Sodium [Doc-Q-Lace] 200 mg PO DAILY 08/04/13 [History] Ipratropium/Albuterol Sulfate [Iprat-Albut 0.5-3(2.5) MG/3 ML] 1 ampule NEB QID PRN 08/04/13 [History] Nitroglycerin [Nitrostat] 0.4 mg SL ASDIRECTED PRN 08/04/13 [History] Ramipril [Altace] 10 mg PO DAILY 08/04/13 [History] Magnesium Oxide 500 mg PO DAILY #60 tab 08/10/13 [Rx] Rosuvastatin [Crestor] 20 mg PO DAILY 08/11/14 [History] Acetaminophen [Tylenol] 325 mg PO Q6H PRN 07/11/15 [History] Acetaminophen/HYDROcodone [[place] 325-5 MG] 1 tab PO Q6H PRN 07/11/15 [History] Albuterol/Ipratropium [Combivent Respimat] 1 puff IH Q4H PRN 07/11/15 [History] Bacitracin [Bacitracin Oint] 1 applic TOP BID 07/11/15 [History] Fluticasone/Salmeterol [Advair 500-50] 1 puff INH BID 07/11/15 [History] Ibuprofen 800 mg PO TID PRN 07/11/15 [History] Trolamine Salicylate/Aloe Vera [Aspercreme 10% Cream] 1 applic TP ASDIRECTED PRN 07/11/15 [History] diphenhydrAMINE [Benadryl] 50 mg PO Q6H PRN 07/11/15 [History] Pantoprazole [ProTONIX] 40 mg PO DAILY #30 tab.cr 01/11/16 [Rx] Lactobacillus Acidophilus [Probiotic] 2 each PO BID #120 capsule 01/20/17 [Rx] metroNIDAZOLE 500 mg PO TID #36 tablet 01/20/17 [Rx] Past Medical History HEENT History: Reports: Cataract, Impaired Vision, Sinusitis Cardiovascular History: Reports: Arrhythmia, High Cholesterol, Hypertension, OR Other Cardiovascular History: "fluid around the heart", CHF Respiratory History: Reports: COPD, SOB Gastrointestinal History: Reports: Colon Polyp, GERD Genitourinary History: Reports: None [employer] History: Reports: Other OB/BYN History: cervix stitch with 4 Musculoskeletal History: Reports: Fracture, Osteoarthritis, Osteoporosis, Other (See Below) Other Musculoskeletal History: degeneration of back Endocrine/Metabolic History: Reports: Hyperthyroidism Hematologic History: Reports: Anemia, Blood Transfusion(s), Iron Deficiency Dermatologic History: Reports: Eczema, Psoriasis - Infectious Disease History Infectious Disease History: Reports: C-Difficile - Past Surgical History HEENT Surgical History: Reports: Cataract Surgery GI Surgical History: Reports: Appendectomy, Colonoscopy, EGD, Hernia Repair/ Other Female Surgical History: Reports: Section Endocrine Surgical History: Reports: Thyroid Biopsy Dermatological Surgical History: Reports: None Social & Family History - Family History Family Medical History: Noncontributory Oncologic: Reports: Colon - Tobacco Use Smoking Status *Q: Former Smoker Years of Tobacco use: 50 Packs/Tins Daily: 0.2 Used Tobacco, but Quit: Yes Month Tobacco Last Used: years ago Second Hand Smoke Exposure: Yes - Caffeine Use Caffeine Use: Reports: Tea - Alcohol Use Days Per Week of Alcohol Use: 0 - Recreational Drug Use Recreational Drug Use: No ED ROS GENERAL - Review of Systems Review Of Systems: See Below Constitutional: Reports: No Symptoms HEENT: Reports: Other (Able to breathe through her nose without difficulty despite the trauma) Respiratory: Reports: Pleuritic Chest Pain. Denies: Shortness of Breath, Cough Cardiovascular: Reports: Chest Pain (With breathing on the right side) GI/Abdominal: Denies: Abdominal Pain, Nausea, Vomiting Musculoskeletal: Reports: Arm Pain, Leg Pain, Other (Right lateral chest wall pain) Skin: Reports: Other (Abrasion over her nose). Denies: Bruising Neurological: Reports: No Symptoms ED EXAM, GENERAL - Physical Exam Exam: See Below Exam Limited By: No Limitations General Appearance: Alert, No Apparent Distress Eye Exam: Bilateral Eye: EOMI Neck: Normal Inspection Respiratory/Chest: No Respiratory Distress, Lungs Clear, Other Cardiovascular: Regular Rate, Rhythm GI/Abdominal: Non-Tender Extremities: Other (Patient has some tenderness to palpation along the lateral aspect of the right femur, but no deformity, swelling, bruising and very little pain with passive range of motion. She also has some tenderness to palpation on the inside of the upper right arm and right lateral chest but no crepitus or bruising.) Course - Vital Signs Last Recorded V/S: Last Vital Signs Temp 96.3 F 05/14/17 17:30 Pulse 61 05/14/17 17:30 Resp 18 05/14/17 17:30 BP 166/81 H 05/14/17 17:30 Pulse Ox 94 L 05/14/17 17:30 - Re-Assessments/Exams Free Text/Narrative Re-Assessment/Exam: 05/14/17 18:19 A two-view chest x-ray was obtained, and a right femur was obtained. She has significant diffuse osteoporosis but I see no evidence of fracture. The femur is normal. At that time I had the patient stand up and ambulate and she seemed to move without difficulty, got up off the exam bed and use her right arm to support her weight as she was getting up. I told her to just use ice to sore areas for couple of days, Tylenol or ibuprofen and increase activity as tolerated. Departure - Departure Time of Disposition: 18:32 Disposition: Home, Self-Care 01 Condition: Fair Clinical Impression: Nose abrasion, non-infected, Contusion of hip, right, Contusion of chest wall - Discharge Information Instructions: Chest Contusion, [id number], Abrasion, [id number] Referrals: Maurice De La Rosa MD [Primary Care Provider] - Forms: ED Department Discharge Care Plan Goals: Ice to sore areas for the next 2-3 days may help. Tylenol or ibuprofen for pain , and increase activity as tolerated. Return for recheck at any time if you feel you are worsening or develop other concerns.
--- NOTE | 2017-05-15 10:33 | CR ---
Right femur There is mild joint space loss at the hip. There are mild anterior findings at the knee. There are no post traumatic findings. Vascular calcifications are demonstrated. Impression: 1. No acute findings.
--- NOTE | 2017-05-15 10:37 | CR ---
Two-view chest Comparison: 11 February 2017. The heart and vascular structures are stable. There are no infiltrates. No fractures are seen. There is no pneumothorax. Impression: 1. No acute findings.
== END 2017-05-14 18:32 | disposition home or self-care (01) ==
LOC: JP.ED 15:40
DX: S70.01XA Contusion of right hip, initial encounter (principal); S20.211A Contusion of right front wall of thorax, initial encounter; S70.11XA Contusion of right thigh, initial encounter; S00.31XA Abrasion of nose, initial encounter; I11.0 Hypertensive heart disease with heart failure; I50.9 Heart failure, unspecified; J44.9 Chronic obstructive pulmonary disease, unspecified; K21.9 Gastro-esophageal reflux disease without esophagitis; Z87.891 Personal history of nicotine dependence; Z79.899 Other long term (current) drug therapy; Z88.0 Allergy status to penicillin; Z88.6 Allergy status to analgesic agent; Z91.040 Latex allergy status; Z91.048 Other nonmedicinal substance allergy status; Z88.1 Allergy status to other antibiotic agents; W19.XXXA Unspecified fall, initial encounter; Y92.009 Unspecified place in unspecified non-institutional (private) residence as the place of occurrence of the external cause
CPT/HCPCS: 71020; 71020-26; 73552-26-LT; 73552-RT; 99284

== ENCOUNTER 2017-08-02 13:54 | Emergency (ER) | payer MEDICARE ==
[2017-08-02] MEDS ORDERED: Acetaminophen/HYDROcodone 325-5 MG Tab PO ONE (15:39)
--- NOTE | 2017-08-02 15:45 | EDM.PDOC ---
ED HPI GENERAL MEDICAL PROBLEM - General Chief Complaint: Back Pain or Injury Stated Complaint: BACK PAIN/SWOLLEN LEGS Time Seen by Provider: 08/02/17 15:30 Source of Information: Reports: Patient, Old Records History Limitations: Reports: No Limitations - History of Present Illness INITIAL COMMENTS - FREE TEXT/NARRATIVE: 82 yo female presents with low back pain since yesterday. Denies injury. Has a pHx of compression fx's. Pain is worse with movement. Some pain down both legs. No incontinence. Some frequency of urination without dysuria. No fever. 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) Back Pain Score (Numeric/FACES): 10 - Related Data Allergies Allergy/AdvReac Type Severity Reaction Status Date / Time Penicillins Allergy Intermediate Hives Verified 08/02/17 14:43 adhesive tape Allergy Cannot Verified 08/02/17 14:43 Remember Bleach (Sodium Hypochlorite) Allergy Rash Verified 08/02/17 14:43 doxycycline Allergy Rash Verified 08/02/17 14:43 metronidazole Allergy Rash Verified 08/02/17 14:59 oxycodone Allergy Cannot Verified 08/02/17 14:43 Remember latex Allergy Blisters Uncoded 05/14/17 17:55 Home Meds: Home Meds Cholecalciferol (Vitamin D3) [Vitamin D3] 2,000 units PO DAILY 08/04/13 [History ] Cyanocobalamin (Vitamin B12) [Vitamin B12] 1,000 mcg PO DAILY 08/04/13 [History] Cyclobenzaprine [Flexeril] 5 mg PO TID PRN 08/04/13 [History] Docusate Sodium [Doc-Q-Lace] 200 mg PO DAILY 08/04/13 [History] Ipratropium/Albuterol Sulfate [Iprat-Albut 0.5-3(2.5) MG/3 ML] 1 ampule NEB QID PRN 08/04/13 [History] Nitroglycerin [Nitrostat] 0.4 mg SL ASDIRECTED PRN 08/04/13 [History] Ramipril [Altace] 10 mg PO DAILY 08/04/13 [History] Magnesium Oxide 500 mg PO DAILY #60 tab 08/10/13 [Rx] Rosuvastatin [Crestor] 20 mg PO DAILY 08/11/14 [History] Acetaminophen [Tylenol] 325 mg PO Q6H PRN 07/11/15 [History] Acetaminophen/HYDROcodone [[place] 325-5 MG] 1 tab PO Q6H PRN 07/11/15 [History] Bacitracin [Bacitracin Oint] 1 applic TOP BID 07/11/15 [History] Fluticasone/Salmeterol [Advair 500-50] 1 puff INH BID 07/11/15 [History] Ibuprofen 800 mg PO TID PRN 07/11/15 [History] Trolamine Salicylate/Aloe Vera [Aspercreme 10% Cream] 1 applic TP ASDIRECTED PRN 07/11/15 [History] diphenhydrAMINE [Benadryl] 50 mg PO Q6H PRN 07/11/15 [History] Pantoprazole [ProTONIX] 40 mg PO DAILY #30 tab.cr 01/11/16 [Rx] Lactobacillus Acidophilus [Probiotic] 2 each PO BID #120 capsule 01/20/17 [Rx] Past Medical History HEENT History: Reports: Cataract, Impaired Vision, Sinusitis Cardiovascular History: Reports: Arrhythmia, Heart Failure, High Cholesterol, Hypertension, [place] Other Cardiovascular History: "fluid around the heart", CHF Respiratory History: Reports: COPD, SOB Gastrointestinal History: Reports: Colon Polyp, GERD Genitourinary History: Reports: None 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 OB/BYN History: cervix stitch with 4 Musculoskeletal History: Reports: Fracture, Osteoarthritis, Osteoporosis, Other (See Below) Other Musculoskeletal History: degeneration of back Endocrine/Metabolic History: Reports: Hyperthyroidism Hematologic History: Reports: Anemia, Blood Transfusion(s), Iron Deficiency Dermatologic History: Reports: Eczema, Psoriasis - Infectious Disease History Infectious Disease History: Reports: Chicken Pox, Measles, Mumps - Past Surgical History HEENT Surgical History: Reports: Cataract Surgery GI Surgical History: Reports: Appendectomy, Colonoscopy, EGD, Hernia Repair/ Other Female Surgical History: Reports: Section Endocrine Surgical History: Reports: Thyroid Biopsy Dermatological Surgical History: Reports: None Social & Family History - Family History Family Medical History: Noncontributory Oncologic: Reports: Colon - Tobacco Use Smoking Status *Q: Former Smoker Years of Tobacco use: 50 Packs/Tins Daily: 0.2 Used Tobacco, but Quit: Yes Month Tobacco Last Used: 6 months ago Second Hand Smoke Exposure: Yes - Caffeine Use Caffeine Use: Reports: Coffee, Tea - Alcohol Use Days Per Week of Alcohol Use: 0 - Recreational Drug Use Recreational Drug Use: No ED ROS GENERAL - Review of Systems Review Of Systems: See Below Constitutional: Reports: No Symptoms HEENT: Reports: No Symptoms Respiratory: Reports: No Symptoms Cardiovascular: Reports: No Symptoms GI/Abdominal: Reports: No Symptoms : Reports: Frequency. Denies: Dysuria, Incontinence Musculoskeletal: Reports: Back Pain (low) Skin: Reports: No Symptoms Neurological: Reports: Other (some radiation of her back pain reportedly down both legs.) Psychiatric: Reports: No Symptoms ED EXAM,LOWER BACK PAIN/INJURY - Physical Exam Exam: See Below Exam Limited By: No Limitations General Appearance: Alert, WD/WN, No Apparent Distress Eye Exam: Bilateral Eye: Normal Inspection Ears: Normal External Exam, Normal Canal, Hearing Grossly Normal Nose: Normal Inspection, Normal Mucosa, No Blood Throat/Mouth: Normal Inspection, Normal Oropharynx, Normal Voice, No Airway Compromise Head: Atraumatic, Normocephalic Neck: Normal Inspection Respiratory/Chest: No Respiratory Distress, Lungs Clear, Normal Breath Sounds, No Accessory Muscle Use Cardiovascular: Regular Rate, Rhythm GI/Abdominal: Normal Bowel Sounds, Soft, Non-Tender, No Distention Back Exam: Normal Inspection, Vertebral Tenderness (lumbar spine). No: CVA Tenderness (R), CVA Tenderness (L) Extremities: Normal Inspection, Normal Range of Motion, Non-Tender, No Pedal Edema Neurological: Alert, Normal Mood/Affect, CN II-XII Intact, No Motor/Sensory Deficits, Oriented x 3 Psychiatric: Normal Affect, Normal Mood Skin Exam: Warm, Dry, Intact, Normal Color, No Rash Lymphatic: No Adenopathy Course - Vital Signs Text/Narrative:: Got fair relief with [place] x 1 Last Recorded V/S: Last Vital Signs Temp 36.1 C 08/02/17 14:52 Pulse 76 08/02/17 14:52 Resp 16 08/02/17 14:52 BP 159/87 H 08/02/17 14:52 Pulse Ox 92 L 08/02/17 14:52 - Orders/Labs/Meds Orders: Active Orders 24 hr Category Date Time Status Lumbar Spine 2 or 3V [CR] Stat Exams 08/02/17 15:39 Taken Meds: Medications Discontinued Medications Generic Name Dose Route Start Last Admin Trade Name Mckenzie PRN Reason Stop Dose Admin Hydrocodone Bitart/Acetaminophen 1 tab 08/02/17 15:39 08/02/17 15:55 [place] 325-5 Mg PO 08/02/17 15:40 1 tab ONETIME ONE Administration - Radiology Interpretation Free Text/Narrative:: lumbar spine D-[id number]-[id number]-level compressions new since 07/31. Departure - Departure Time of Disposition: 16:25 Disposition: Home, Self-Care 01 Condition: Fair Clinical Impression: Compression fracture Low back pain Qualifiers: Chronicity: acute Back pain laterality: midline Sciatica presence: with sciatica Sciatica laterality: bilateral sciatica Qualified Code(s): M54.42 - Lumbago with sciatica, left side; M54.41 - Lumbago with sciatica, right side; M54.41 - Lumbago with sciatica, right side - Discharge Information Referrals: Maruice De La Rosa MD [Primary Care Provider] - Forms: ED Department Discharge - My Orders Last 24 Hours: My Active Orders 08/02/17 15:39 Lumbar Spine 2 or 3V [CR] Stat - Assessment/Plan Last 24 Hours: My Active Orders 08/02/17 15:39 Lumbar Spine 2 or 3V [CR] Stat
[2017-08-02 16:30] VITALS: BP 161/63
--- NOTE | 2017-08-04 10:38 | CR ---
Lumbar spine Correlation is made with a lumbar MRI from 2015. Multiple compression fractures are demonstrated. There are compressions of all vein T12, L1, L3, L4, and L5. The compression of L3 has developed since 2015. The remaining compression fractures are chron ic demonstrated on the MRI. Impression: 1. Multiple chronic lumbar compression fractures. MRI could be performed to assess for acute injury o r progression.
== END 2017-08-02 16:37 | disposition home or self-care (01) ==
LOC: JP.ED 13:54
DX: M48.56XA Collapsed vertebra, not elsewhere classified, lumbar region, initial encounter for fracture (principal); M54.41 Lumbago with sciatica, right side; I11.0 Hypertensive heart disease with heart failure; I50.9 Heart failure, unspecified; Z88.0 Allergy status to penicillin; Z91.09 Other allergy status, other than to drugs and biological substances; Z91.048 Other nonmedicinal substance allergy status; Z88.1 Allergy status to other antibiotic agents; Z88.5 Allergy status to narcotic agent; Z91.040 Latex allergy status; Z88.8 Allergy status to other drugs, medicaments and biological substances; Z79.899 Other long term (current) drug therapy; Z87.891 Personal history of nicotine dependence
CPT/HCPCS: 72100; 99284; A9270; 99283

== ENCOUNTER 2017-10-29 09:36 | Emergency (ER) | payer MEDICARE ==
[2017-10-29 11:30] VITALS: BP 179/92
--- NOTE | 2017-10-29 11:49 | EDM.PDOC ---
ED HPI GENERAL MEDICAL PROBLEM - General Chief Complaint: Eye Problems Stated Complaint: SENT FROM EYE CLINIC, CONCERN FOR STROKE Time Seen by Provider: 10/29/17 11:47 Source of Information: Reports: Patient, Other (pt was seen at the eye clinic today and her eye exam was good. The concern was for the pain and possible tempral arteritis. ) History Limitations: Reports: No Limitations - History of Present Illness INITIAL COMMENTS - FREE TEXT/NARRATIVE: pt has severe pain in the left eye. She states this deveoped quite suddenly. Onset: Today, Sudden Duration: Hour(s): Location: Reports: Face Associated Symptoms: Reports: Other (Mainly pain behind the eye. ) Bilateral Eye Pain Score (Numeric/FACES): 2 - Related Data Allergies Allergy/AdvReac Type Severity Reaction Status Date / Time Penicillins Allergy Intermediate Hives Verified 08/02/17 14:43 adhesive tape Allergy Cannot Verified 08/02/17 14:43 Remember Bleach (Sodium Hypochlorite) Allergy Rash Verified 08/02/17 14:43 doxycycline Allergy Rash Verified 08/02/17 14:43 metronidazole Allergy Rash Verified 08/02/17 14:59 oxycodone Allergy Cannot Verified 08/02/17 14:43 Remember latex Allergy Blisters Uncoded 05/14/17 17:55 Home Meds: Home Meds Cholecalciferol (Vitamin D3) [Vitamin D3] 2,000 units PO DAILY 08/04/13 [History ] Cyanocobalamin (Vitamin B12) [Vitamin B12] 1,000 mcg PO DAILY 08/04/13 [History] Cyclobenzaprine [Flexeril] 5 mg PO TID PRN 08/04/13 [History] Ipratropium/Albuterol Sulfate [Iprat-Albut 0.5-3(2.5) MG/3 ML] 1 ampule NEB QID PRN 08/04/13 [History] Nitroglycerin [Nitrostat] 0.4 mg SL ASDIRECTED PRN 08/04/13 [History] Ramipril [Altace] 10 mg PO DAILY 08/04/13 [History] Rosuvastatin [Crestor] 20 mg PO DAILY 08/11/14 [History] Acetaminophen [Tylenol] 325 mg PO Q6H PRN 07/11/15 [History] Acetaminophen/HYDROcodone [[place] 325-5 MG] 1 tab PO Q6H PRN 07/11/15 [History] Bacitracin [Bacitracin Oint] 1 applic TOP BID 07/11/15 [History] Fluticasone/Salmeterol [Advair 500-50] 1 puff INH BID 07/11/15 [History] Ibuprofen 800 mg PO TID PRN 07/11/15 [History] Trolamine Salicylate/Aloe Vera [Aspercreme 10% Cream] 1 applic TP ASDIRECTED PRN 07/11/15 [History] diphenhydrAMINE [Benadryl] 50 mg PO Q6H PRN 07/11/15 [History] Pantoprazole [ProTONIX] 40 mg PO DAILY #30 tab.cr 01/11/16 [Rx] Lactobacillus Acidophilus [Probiotic] 2 each PO BID #120 capsule 01/20/17 [Rx] Past Medical History HEENT History: Reports: Cataract, Impaired Vision, Sinusitis Cardiovascular History: Reports: Arrhythmia, Heart Failure, High Cholesterol, Hypertension, [place] Other Cardiovascular History: "fluid around the heart", CHF Respiratory History: Reports: COPD, SOB Gastrointestinal History: Reports: Colon Polyp, GERD Genitourinary History: Reports: Renal Disease 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: cervix stitch with 4 Musculoskeletal History: Reports: Fracture, Osteoarthritis, Osteoporosis, Other (See Below) Other Musculoskeletal History: degeneration of back Endocrine/Metabolic History: Reports: Hyperthyroidism Hematologic History: Reports: Anemia, Blood Transfusion(s), Iron Deficiency Dermatologic History: Reports: Eczema, Psoriasis - Infectious Disease History Infectious Disease History: Reports: Chicken Pox, Measles, Mumps - Past Surgical History HEENT Surgical History: Reports: Cataract Surgery GI Surgical History: Reports: Appendectomy, Colonoscopy, EGD, Hernia Repair/ Other Female Surgical History: Reports: Section Endocrine Surgical History: Reports: Thyroid Biopsy Dermatological Surgical History: Reports: None Social & Family History - Family History Family Medical History: Noncontributory Oncologic: Reports: Colon - Tobacco Use Smoking Status *Q: Former Smoker Used Tobacco, but Quit: Yes Month/Year Tobacco Last Used: 6 - Caffeine Use Caffeine Use: Reports: Coffee - Recreational Drug Use Recreational Drug Use: No ED ROS GENERAL - Review of Systems Review Of Systems: See Below Constitutional: Reports: No Symptoms HEENT: Reports: Other (pt developed acute pain behind the left eye with out vision change. She went to the eye clinic and had a good eye exam which was neg. ) Cardiovascular: Reports: No Symptoms Endocrine: Reports: No Symptoms GI/Abdominal: Reports: No Symptoms : Reports: No Symptoms ED EXAM GENERAL W FULL EYE - Physical Exam Exam: See Below Text/Narrative:: pt is pain free at this time. She is slightly puffy around the left eye area. She was quite uncomfortable during the nite. Exam Limited By: No Limitations General Appearance: Alert, Anxious, Other (upils are equal and reactive. She has slight puffiness on the inner aspect of the left eye. ) Ears: Normal TMs Nose: Normal Inspection Throat/Mouth: Normal Inspection Head: Atraumatic Neck: Normal Inspection Respiratory/Chest: No Respiratory Distress GI/Abdominal: Soft, Non-Tender (Male) Exam: Normal Inspection Rectal (Males) Exam: Deferred Rectal (Female) Exam: Deferred Back Exam: Normal Inspection Extremities: Normal Inspection Neurological: Alert, Oriented, Normal Cognition Psychiatric: Normal Affect Course - Vital Signs Last Recorded V/S: Last Vital Signs Temp 36.3 C 10/29/17 10:06 Pulse 53 L 10/29/17 11:30 Resp 18 10/29/17 11:30 BP 179/92 H 10/29/17 11:30 Pulse Ox 95 10/29/17 11:30 - Orders/Labs/Meds Labs: Laboratory Tests 10/29/17 10/29/17 10/29/17 Range/Units 10:46 10:46 10:46 WBC 8.0 (4.5-11.0) K/uL RBC 4.64 (3.30-5.50) M/uL Hgb 14.6 (12.0-15.0) g/dL Hct 43.1 (36.0-48.0) % MCV 93 (80-98) fL MCH 32 H (27-31) pg MCHC 34 (32-36) % Plt Count 200 (150-400) K/uL Neut % (Auto) 77 H (36-66) % Lymph % (Auto) 15 L (24-44) % [place] % (Auto) 6 (2-6) % Eos % (Auto) 1 L (2-4) % Baso % (Auto) 1 (0-1) % ESR 17 (0-25) mm/hr Sodium 140 (140-148) mmol/L Potassium 3.9 (3.6-5.2) mmol/L Chloride 104 (100-108) mmol/L Carbon Dioxide 28 (21-32) mmol/L Anion Gap 8.5 (5.0-14.0) mmol/L BUN 17 (7-18) mg/dL Creatinine 0.9 (0.6-1.0) mg/dL Est Cr Clr Drug Dosing 35.21 mL/min Estimated GFR (MDRD) > 60 (>60) Glucose 106 (74-106) mg/dL Calcium 8.7 (8.5-10.1) mg/dL Total Bilirubin 0.9 (0.2-1.0) mg/dL AST 18 (15-37) U/L ALT 19 D (12-78) U/L Alkaline Phosphatase 99 (46-116) U/L C-Reactive Protein 0.11 (0.0-0.3) mg/dL Total Protein 6.6 (6.4-8.2) g/dL Albumin 3.4 (3.4-5.0) g/dL Globulin 3.2 (2.3-3.5) g/dL Albumin/Globulin Ratio 1.1 L (1.2-2.2) - Re-Assessments/Exams Free Text/Narrative Re-Assessment/Exam: 10/29/17 13:51 cat scan was normal with no acute findings, lab work was normal. Departure - Departure Time of Disposition: 13:54 Disposition: Home, Self-Care 01 Condition: Fair Clinical Impression: Atypical migraine - Discharge Information Referrals: Maurice De La Rosa MD [Primary Care Provider] - Forms: ED Department Discharge Care Plan Goals: cfollow up with Dr De La Rosa.
--- NOTE | 2017-10-29 13:28 | CR ---
Carlson' view The orbits are unremarkable. The visualized sinuses demonstrate normal aeration. The bones are demine ralized. Impression: 1. No acute findings.
--- NOTE | 2017-10-29 13:31 | CT ---
Head wo Cont HISTORY: Left thigh pain. COMPARISON: None FINDINGS:There is central and cortical cerebral atrophy consistent with age. There is no hemorrhage, mass effect, or edema. Low attenuation is demonstrated throughout the deep periventricular white bismark er. 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 The brainstem and posterior fossa are unremarkable. The orbital structures demonstrate no abnormalit ies. The sinuses demonstrate normal aeration. IMPRESSION: Age-related involutional changes. No acute intracranial changes are demonstrated..
== END 2017-10-29 14:03 | disposition home or self-care (01) ==
LOC: JP.ED 09:36
DX: G43.809 Other migraine, not intractable, without status migrainosus (principal); J44.9 Chronic obstructive pulmonary disease, unspecified; I11.0 Hypertensive heart disease with heart failure; I50.9 Heart failure, unspecified; E05.90 Thyrotoxicosis, unspecified without thyrotoxic crisis or storm; K21.9 Gastro-esophageal reflux disease without esophagitis; Z87.891 Personal history of nicotine dependence; Z79.899 Other long term (current) drug therapy; Z88.0 Allergy status to penicillin; Z91.040 Latex allergy status; Z88.1 Allergy status to other antibiotic agents; Z88.8 Allergy status to other drugs, medicaments and biological substances; Z91.09 Other allergy status, other than to drugs and biological substances; Z88.6 Allergy status to analgesic agent
CPT/HCPCS: 36415; 70250; 70250-26; 70450; 70450-26; 80053; 85025; 85651; 86140; 99284-25

== ENCOUNTER 2018-11-10 10:25 | Emergency (ER) | payer MEDICARE ==
--- NOTE | 2018-11-10 11:29 | EDM.PDOC ---
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 Now has red area there and would like it looked at. Onset: Gradual Onset Date: 11/07/18 Duration: Day(s):, Getting Worse Location: Reports: Lower Extremity, Right Quality: Reports: Other (non-tender) Severity: Mild Improves with: Reports: None Worsens with: Reports: Other (? 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) - Related Data Allergies Allergy/AdvReac Type Severity Reaction Status Date / Time Penicillins Allergy Intermediate Hives Verified 01/07/18 08:17 adhesive tape Allergy Cannot Verified 01/07/18 08:17 Remember Bleach (Sodium Hypochlorite) Allergy Rash Verified 01/07/18 08:17 doxycycline Allergy Rash Verified 01/07/18 08:17 metronidazole Allergy Rash Verified 01/07/18 08:17 oxycodone Allergy Cannot Verified 01/07/18 08:17 Remember latex Allergy Blisters Uncoded 01/07/18 08:17 Home Meds: Home Meds Cholecalciferol (Vitamin D3) [Vitamin D3] 2,000 units PO DAILY 08/04/13 [History ] Cyanocobalamin (Vitamin B12) [Vitamin B12] 1,000 mcg PO DAILY 08/04/13 [History] Cyclobenzaprine [Flexeril] 5 mg PO TID PRN 08/04/13 [History] Ipratropium/Albuterol Sulfate [Iprat-Albut 0.5-3(2.5) MG/3 ML] 1 ampule NEB QID PRN 08/04/13 [History] Nitroglycerin [Nitrostat] 0.4 mg SL ASDIRECTED PRN 08/04/13 [History] Ramipril [Altace] 10 mg PO DAILY 08/04/13 [History] Rosuvastatin [Crestor] 20 mg PO DAILY 08/11/14 [History] Acetaminophen [Tylenol] 325 mg PO Q6H PRN 07/11/15 [History] Acetaminophen/HYDROcodone [[place] 325-5 MG] 1 tab PO Q6H PRN 07/11/15 [History] Bacitracin [Bacitracin Oint] 1 applic TOP BID 07/11/15 [History] Fluticasone/Salmeterol [Advair 500-50] 1 puff INH BID 07/11/15 [History] Ibuprofen 800 mg PO TID PRN 07/11/15 [History] Trolamine Salicylate/Aloe Vera [Aspercreme 10% Cream] 1 applic TP ASDIRECTED PRN 07/11/15 [History] diphenhydrAMINE [Benadryl] 50 mg PO Q6H PRN 07/11/15 [History] Pantoprazole [ProTONIX] 40 mg PO DAILY #30 tab.cr 01/11/16 [Rx] Lactobacillus Acidophilus [Probiotic] 2 each PO BID #120 capsule 01/20/17 [Rx] Past Medical History HEENT History: Reports: Cataract, Impaired Vision, Sinusitis Cardiovascular History: Reports: Arrhythmia, Heart Failure, High Cholesterol, Hypertension, [place] Other Cardiovascular History: "fluid around the heart", CHF Respiratory History: Reports: COPD, SOB Gastrointestinal History: Reports: Colon Polyp, GERD Genitourinary History: Reports: Renal Disease 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 4 Musculoskeletal History: Reports: Fracture, Osteoarthritis, Osteoporosis, Other (See Below) Other Musculoskeletal History: degeneration of back Endocrine/Metabolic History: Reports: Hyperthyroidism Hematologic History: Reports: Anemia, Blood Transfusion(s), Iron Deficiency Dermatologic History: Reports: Eczema, Psoriasis - Infectious Disease History Infectious Disease History: Reports: Chicken Pox, Measles, Mumps - Past Surgical History HEENT Surgical History: Reports: Cataract Surgery GI Surgical History: Reports: Appendectomy, Colonoscopy, EGD, Hernia Repair/ Other Female Surgical History: Reports: Section Endocrine Surgical History: Reports: Thyroid Biopsy Dermatological Surgical History: Reports: None Social & Family History - Family History Family Medical History: Noncontributory Oncologic: Reports: Colon - Tobacco Use Smoking Status *Q: Unknown Ever Smoked - Caffeine Use Caffeine Use: Reports: None ED ROS GENERAL - Review of Systems Review Of Systems: See Below Constitutional: Reports: No Symptoms HEENT: Reports: No Symptoms Respiratory: Reports: No Symptoms Cardiovascular: Reports: No Symptoms GI/Abdominal: Reports: No Symptoms : Reports: No Symptoms Musculoskeletal: Reports: No Symptoms Skin: Reports: Erythema (at site of tick bite about 1.2 cm in diameter) Neurological: Reports: No Symptoms ED EXAM, ANIMAL BITE - Physical Exam Exam: See Below Exam Limited By: No Limitations General Appearance: Alert, WD/WN, No Apparent Distress Extremities: Normal Inspection, Normal Range of Motion, Non-Tender, No Pedal Edema Neurological: Alert, Oriented, CN II-XII Intact, Normal Cognition, No Motor/ Sensory Deficits Psychiatric: Normal Affect, Normal Mood Skin Exam: Warm/Dry, Other (1.2 cm in diameter red area to the anterior R thigh. No induration.) Course - Vital Signs Last Recorded V/S: Last Vital Signs Temp 36.9 C 11/10/18 10:54 Pulse 67 11/10/18 10:54 Resp 23 H 11/10/18 10:54 BP 180/94 H 11/10/18 10:54 Pulse Ox 95 11/10/18 10:54 Departure - Departure Time of Disposition: 11:28 Disposition: Home, Self-Care 01 Condition: Good Clinical Impression: Tick bite of right thigh Qualifiers: Encounter type: initial encounter Qualified Code(s): S70.361A - Insect bite ( nonvenomous), right thigh, initial encounter; W57.XXXA - Bitten or stung by nonvenomous insect and other nonvenomous arthropods, initial encounter - Discharge Information *PRESCRIPTION DRUG MONITORING PROGRAM REVIEWED*: No *COPY OF PRESCRIPTION DRUG MONITORING REPORT IN PATIENT ELIZABET: No Instructions: Tick Bite Information, Adult Referrals: Maurice De La Rosa MD [Primary Care Provider] - Additional Instructions: Recheck your BP when you are relaxed. If still above 150 let your doctor know.
[2018-11-10 11:32] VITALS: BP 180/94
== END 2018-11-10 11:42 | disposition home or self-care (01) ==
LOC: JP.ED 10:25
DX: S70.361A Insect bite (nonvenomous), right thigh, initial encounter (principal); I11.0 Hypertensive heart disease with heart failure; I50.9 Heart failure, unspecified; I25.2 Old myocardial infarction; J44.9 Chronic obstructive pulmonary disease, unspecified; E05.90 Thyrotoxicosis, unspecified without thyrotoxic crisis or storm; W57.XXXA Bitten or stung by nonvenomous insect and other nonvenomous arthropods, initial encounter; Z79.899 Other long term (current) drug therapy; Z88.8 Allergy status to other drugs, medicaments and biological substances; Z88.0 Allergy status to penicillin
CPT/HCPCS: 99282

== ENCOUNTER 2019-01-29 12:24 | Emergency (ER) | payer MEDICARE ==
[2019-01-29 12:49] VITALS: BP 167/95; PULSE 73
--- NOTE | 2019-01-29 13:28 | EDM.PDOC ---
ED HPI GENERAL MEDICAL PROBLEM - General Chief Complaint: Upper Extremity Injury/Pain Stated Complaint: INJURED RT WRIST Time Seen by Provider: 01/29/19 13:10 Source of Information: Reports: Patient History Limitations: Reports: No Limitations - History of Present Illness INITIAL COMMENTS - FREE TEXT/NARRATIVE: 83-year-old female who fell injuring her right hand last evening. She has a small abrasioon on the lateral aspect of the fifth metacarpal phalange joint area which has a Band-Aid, and surrounding bruising and swelling. The wrist is sore as well. No other injury. Onset: Sudden Duration: Hour(s): (Fell roughly 12 hours ago) Location: Reports: Upper Extremity, Right Associated Symptoms: Reports: No Other Symptoms Right Hand Pain Score (Numeric/FACES): 10 - Related Data Allergies Allergy/AdvReac Type Severity Reaction Status Date / Time Penicillins Allergy Intermediate Hives Verified 01/29/19 12:55 adhesive tape Allergy Cannot Verified 01/29/19 12:55 Remember Bleach (Sodium Hypochlorite) Allergy Rash Verified 01/29/19 12:55 doxycycline Allergy Rash Verified 01/29/19 12:55 metronidazole Allergy Rash Verified 01/29/19 12:55 oxycodone Allergy Cannot Verified 01/29/19 12:55 Remember latex Allergy Blisters Uncoded 01/07/18 08:17 Home Meds: Home Meds Cholecalciferol (Vitamin D3) [Vitamin D3] 2,000 units PO DAILY 08/04/13 [History ] Cyanocobalamin (Vitamin B12) [Vitamin B12] 1,000 mcg PO DAILY 08/04/13 [History] Cyclobenzaprine [Flexeril] 5 mg PO TID PRN 08/04/13 [History] Ipratropium/Albuterol Sulfate [Iprat-Albut 0.5-3(2.5) MG/3 ML] 1 ampule NEB QID PRN 08/04/13 [History] Nitroglycerin [Nitrostat] 0.4 mg SL ASDIRECTED PRN 08/04/13 [History] Ramipril [Altace] 10 mg PO DAILY 08/04/13 [History] Rosuvastatin [Crestor] 20 mg PO DAILY 08/11/14 [History] Acetaminophen [Tylenol] 325 mg PO Q6H PRN 07/11/15 [History] Acetaminophen/HYDROcodone [[place] 325-5 MG] 1 tab PO Q6H PRN 07/11/15 [History] Bacitracin [Bacitracin Oint] 1 applic TOP BID 07/11/15 [History] Ibuprofen 800 mg PO TID PRN 07/11/15 [History] Trolamine Salicylate/Aloe Vera [Aspercreme 10% Cream] 1 applic TP ASDIRECTED PRN 07/11/15 [History] diphenhydrAMINE [Benadryl] 50 mg PO Q6H PRN 07/11/15 [History] Pantoprazole [ProTONIX] 40 mg PO DAILY #30 tab.cr 01/11/16 [Rx] Albuterol/Ipratropium [Combivent Respimat] 1 dose INH ASDIRECTED 01/29/19 [ History] Azelastine [Optivar 0.05% Ophth Soln] 2 drop EYEBOTH QID 01/29/19 [History] Montelukast [Singulair] 1 tab PO BEDTIME 01/29/19 [History] tiZANidine [Zanaflex] 1 tab PO ASDIRECTED 01/29/19 [History] Past Medical History HEENT History: Reports: Cataract, Impaired Vision, Sinusitis, Other (See Below) Other HEENT History: detached retinas Cardiovascular History: Reports: Arrhythmia, Heart Failure, High Cholesterol, Hypertension, [place] Other Cardiovascular History: "fluid around the heart", CHF Respiratory History: Reports: COPD, SOB Gastrointestinal History: Reports: Colon Polyp, GERD Genitourinary History: Reports: Renal Disease 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 COMMUNITY RELATIONS ADVISOR History: cervix stitch with 4 Musculoskeletal History: Reports: Fracture, Osteoarthritis, Osteoporosis, Other (See Below) Other Musculoskeletal History: degeneration of back Endocrine/Metabolic History: Reports: Hyperthyroidism Hematologic History: Reports: Anemia, Blood Transfusion(s), Iron Deficiency Dermatologic History: Reports: Eczema, Psoriasis - Infectious Disease History Infectious Disease History: Reports: Chicken Pox, Measles, Mumps - Past Surgical History HEENT Surgical History: Reports: Cataract Surgery GI Surgical History: Reports: Appendectomy, Colonoscopy, EGD, Hernia Repair/ Other Female Surgical History: Reports: Section Endocrine Surgical History: Reports: Thyroid Biopsy Social & Family History - Family History Family Medical History: Noncontributory Oncologic: Reports: Colon - Tobacco Use Smoking Status *Q: Light Tobacco Smoker Years of Tobacco use: 55 Packs/Tins Daily: 0 - Caffeine Use Caffeine Use: Reports: None - Recreational Drug Use Recreational Drug Use: No Review of Systems - Review of Systems Review Of Systems: See Below Constitutional: Denies: Fever Respiratory: Denies: Shortness of Breath Cardiovascular: Denies: Chest Pain GI/Abdominal: Denies: Abdominal Pain Musculoskeletal: Reports: Hand Pain Skin: Reports: Bruising (Fairly significant bruising around the right hand) Neurological: Reports: Other (Patient did not have a syncopal episode, she stumbled). Denies: Headache, Syncope ED EXAM, GENERAL - Physical Exam Exam: See Below Exam Limited By: No Limitations General Appearance: Alert, No Apparent Distress Head: Atraumatic Respiratory/Chest: No Respiratory Distress Extremities: Other (Exam is otherwise limited to the right hand and arm. She has significant bruising and swelling throughout the right hand especially towards the ulnar aspect and it's very tender to palpation. The wrist has no deformity, palpation of the distal radius and ulna are only mildly tender.) Course - Vital Signs Last Recorded V/S: Last Vital Signs Temp 98.5 F 01/29/19 12:54 Pulse 73 01/29/19 12:54 Resp 24 H 01/29/19 12:54 BP 167/95 H 01/29/19 12:54 Pulse Ox 91 L 01/29/19 12:54 - Orders/Labs/Meds Orders: Active Orders 24 hr Category Date Time Status DME for Discharge [COMM] Stat Oth 01/29/19 14:51 Ordered - Re-Assessments/Exams Free Text/Narrative Re-Assessment/Exam: 01/29/19 13:28 X-ray of the right hand was obtained. 01/29/19 14:51 X-ray shows nondisplaced fractures of the base of the fourth and fifth metacarpals. An ulnar gutter splint was applied to the hand and wrist, and she was given a sling for comfort. She will recheck with orthopedics next week on Friday at 9:15 AM, likely will need a cast at that time. Departure - Departure Time of Disposition: 15:10 Disposition: Home, Self-Care 01 Clinical Impression: Fracture of base of metacarpal bone of right hand Fracture of metacarpal base of right hand, closed Qualifiers: Encounter type: initial encounter Metacarpal bone: fourth Fracture alignment: nondisplaced Qualified Code(s): S62.344A - Nondisplaced fracture of base of fourth metacarpal bone, right hand, initial encounter for closed fracture - Discharge Information Instructions: Metacarpal Fracture, [id number] Referrals: Maurice De La Rosa MD [Primary Care Provider] - Forms: ED Department Discharge Additional Instructions: [facility] Friday AT 9:15 AM Care Plan Goals: Keep splint on and use sling for comfort until next Friday. Recheck with Prasad Payton in the orthopedic clinic in [place] at 9:15 AM on Friday. Ibuprofen or Tylenol will help with pain. - My Orders Last 24 Hours: My Active Orders 01/29/19 14:51 DME for Discharge [COMM] Stat - Assessment/Plan Last 24 Hours: My Active Orders 01/29/19 14:51 DME for Discharge [COMM] Stat
--- NOTE | 2019-01-29 14:16 | CRLCR ---
INDICATION: Trauma; pain right hand. COMPARISON: None. TECHNIQUE: Three views study right hand. FINDINGS: Undisplaced fracture through the base of the 4th and 5th metacarpals . Diffuse soft tissue swelling along the medial aspect of the right hand. Osteoarthritis involving the metacarpophalangeal articulation of the right thumb as well as the interphalangeal articulation of the right thumb. Impression: Undisplaced fracture base 4th and 5th metacarpals. 1. 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 Dictated by Danika Rivera MD @ Jan 29 2019 2:09PM Signed by Dr. Danika Rivera @ Jan 29 2019 2:15PM
== END 2019-01-29 15:10 | disposition home or self-care (01) ==
LOC: JP.ED 12:24
DX: S62.344A Nondisplaced fracture of base of fourth metacarpal bone, right hand, initial encounter for closed fracture (principal); S62.346A Nondisplaced fracture of base of fifth metacarpal bone, right hand, initial encounter for closed fracture; I11.0 Hypertensive heart disease with heart failure; I50.9 Heart failure, unspecified; E78.00 Pure hypercholesterolemia, unspecified; J44.9 Chronic obstructive pulmonary disease, unspecified; E05.90 Thyrotoxicosis, unspecified without thyrotoxic crisis or storm; F17.210 Nicotine dependence, cigarettes, uncomplicated; Z88.0 Allergy status to penicillin; Z91.048 Other nonmedicinal substance allergy status; Z88.8 Allergy status to other drugs, medicaments and biological substances; Z88.1 Allergy status to other antibiotic agents; Z88.5 Allergy status to narcotic agent; Z91.040 Latex allergy status; Z79.899 Other long term (current) drug therapy; W18.39XA Other fall on same level, initial encounter
CPT/HCPCS: 29125; 73130-RT; 99283; 99283-25

== ENCOUNTER 2019-02-24 18:15 | Emergency (ER) | payer MEDICARE ==
--- NOTE | 2019-02-24 18:57 | EDM.PDOC ---
ED HPI GENERAL MEDICAL PROBLEM - General Chief Complaint: Skin Complaint Stated Complaint: SWELLING ON RIGHT HAND Time Seen by Provider: 02/24/19 18:40 Source of Information: Reports: Patient, Old Records History Limitations: Reports: No Limitations - History of Present Illness INITIAL COMMENTS - FREE TEXT/NARRATIVE: 83 yo female presents with localized swelling of her R hand over the past 4 d. Has not tried to get in to see her primary, Dr. De La Rosa. No injury or fever. No drainage. No self tx. 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: Other (see below) (none) - Related Data Allergies Allergy/AdvReac Type Severity Reaction Status Date / Time Penicillins Allergy Intermediate Hives Verified 01/29/19 12:55 adhesive tape Allergy Cannot Verified 01/29/19 12:55 Remember Bleach (Sodium Hypochlorite) Allergy Rash Verified 01/29/19 12:55 doxycycline Allergy Rash Verified 01/29/19 12:55 metronidazole Allergy Rash Verified 01/29/19 12:55 oxycodone Allergy Cannot Verified 01/29/19 12:55 Remember latex Allergy Blisters Uncoded 01/07/18 08:17 Home Meds: Home Meds Cholecalciferol (Vitamin D3) [Vitamin D3] 2,000 units PO DAILY 08/04/13 [History ] Cyanocobalamin (Vitamin B12) [Vitamin B12] 1,000 mcg PO DAILY 08/04/13 [History] Cyclobenzaprine [Flexeril] 5 mg PO TID PRN 08/04/13 [History] Ipratropium/Albuterol Sulfate [Iprat-Albut 0.5-3(2.5) MG/3 ML] 1 ampule NEB QID PRN 08/04/13 [History] Nitroglycerin [Nitrostat] 0.4 mg SL ASDIRECTED PRN 08/04/13 [History] Ramipril [Altace] 10 mg PO DAILY 08/04/13 [History] Rosuvastatin [Crestor] 20 mg PO DAILY 08/11/14 [History] Acetaminophen [Tylenol] 325 mg PO Q6H PRN 07/11/15 [History] Acetaminophen/HYDROcodone [[place] 325-5 MG] 1 tab PO Q6H PRN 07/11/15 [History] Bacitracin [Bacitracin Oint] 1 applic TOP BID 07/11/15 [History] Ibuprofen 800 mg PO TID PRN 07/11/15 [History] Trolamine Salicylate/Aloe Vera [Aspercreme 10% Cream] 1 applic TP ASDIRECTED PRN 07/11/15 [History] diphenhydrAMINE [Benadryl] 50 mg PO Q6H PRN 07/11/15 [History] Pantoprazole [ProTONIX] 40 mg PO DAILY #30 tab.cr 01/11/16 [Rx] Albuterol/Ipratropium [Combivent Respimat] 1 dose INH ASDIRECTED 01/29/19 [ History] Azelastine [Optivar 0.05% Ophth Soln] 2 drop EYEBOTH QID 01/29/19 [History] Montelukast [Singulair] 1 tab PO BEDTIME 01/29/19 [History] tiZANidine [Zanaflex] 1 tab PO ASDIRECTED 01/29/19 [History] Past Medical History HEENT History: Reports: Cataract, Impaired Vision, Sinusitis, Other (See Below) Other HEENT History: detached retinas Cardiovascular History: Reports: Arrhythmia, Heart Failure, High Cholesterol, Hypertension, [place] Other Cardiovascular History: "fluid around the heart", CHF Respiratory History: Reports: COPD, SOB Gastrointestinal History: Reports: Colon Polyp, GERD Genitourinary History: Reports: Renal Disease 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: cervix stitch with 4 Musculoskeletal History: Reports: Fracture, Osteoarthritis, Osteoporosis, Other (See Below) Other Musculoskeletal History: degeneration of back Endocrine/Metabolic History: Reports: Hyperthyroidism Hematologic History: Reports: Anemia, Blood Transfusion(s), Iron Deficiency Dermatologic History: Reports: Eczema, Psoriasis - Infectious Disease History Infectious Disease History: Reports: Chicken Pox, Measles, Mumps - Past Surgical History HEENT Surgical History: Reports: Cataract Surgery GI Surgical History: Reports: Appendectomy, Colonoscopy, EGD, Hernia Repair/ Other Female Surgical History: Reports: Section Endocrine Surgical History: Reports: Thyroid Biopsy Social & Family History - Family History Family Medical History: Noncontributory Oncologic: Reports: Colon - Caffeine Use Caffeine Use: Reports: None ED ROS GENERAL - Review of Systems Review Of Systems: See Below Constitutional: Reports: No Symptoms Musculoskeletal: Reports: Hand Pain (Right) Skin: Reports: Other (small area of swelling of R hand) Neurological: Reports: No Symptoms ED EXAM, SKIN/RASH Exam: See Below Exam Limited By: No Limitations General Appearance: Alert, WD/WN, No Apparent Distress Extremities: Other (small, ~1 cm abscess of the R hand over the 5th MC joint, arevalo side. Not warm to touch. ). No: Normal Inspection, Increased Warmth, Redness Neurological: Alert, Oriented, CN II-XII Intact, Normal Cognition, No Motor/ Sensory Deficits Psychiatric: Normal Affect, Normal Mood Skin: Warm, Dry, Intact, Normal Color, No Rash Location, Skin: Upper Extremity, Right Characteristics: Other (? abscess) Associated features: Tenderness, Swelling. No: Warmth, Lymphangitis ED SKIN PROCEDURES - I&D Site: R hand Skin Prep: Providone-Iodine (Betadine), Isopropyl Alcohol (Alcohol) Area Incised With: Needle Drainage: Purulent, Small Amount Probed to Break Up Loculations: No Sterile Dressing: Other (Band Aid) Complications: No Complication Description: Wound culture obtained. Course - Vital Signs Last Recorded V/S: Last Vital Signs Temp 36.2 C 02/24/19 18:34 Pulse 60 02/24/19 18:34 Resp 22 H 02/24/19 18:34 BP 177/90 H 02/24/19 18:34 Pulse Ox 95 02/24/19 18:34 - Orders/Labs/Meds Orders: Active Orders 24 hr Category Date Time Status CULTURE WOUND + SMEAR [RM] Stat Lab 02/24/19 18:52 Ordered Departure - Departure Time of Disposition: 19:10 Disposition: Home, Self-Care 01 Condition: Fair Clinical Impression: Infection of right hand, Abscess - Discharge Information *PRESCRIPTION DRUG MONITORING PROGRAM REVIEWED*: No *COPY OF PRESCRIPTION DRUG MONITORING REPORT IN PATIENT ELIZABET: No Instructions: Skin Abscess Referrals: Maurice De La Rosa MD [Primary Care Provider] - Additional Instructions: Warm soaks several times a day. Keep area clean. Take acetaminophen as needed for pain relief. Take Bactrim DS every 12 hrs for your infection. Recheck in the clinic on Friday. - My Orders Last 24 Hours: My Active Orders 02/24/19 18:52 CULTURE WOUND + SMEAR [RM] Stat - Assessment/Plan Last 24 Hours: My Active Orders 02/24/19 18:52 CULTURE WOUND + SMEAR [RM] Stat
[2019-02-24] MEDS ORDERED: Sulfamethoxazole/Trimethoprim 800-160 MG Tab PO ONE (19:00)
[2019-02-24 19:40] VITALS: BP 168/56; PULSE 62
== END 2019-02-24 19:43 | disposition home or self-care (01) ==
LOC: JP.ED 18:15
DX: L02.511 Cutaneous abscess of right hand (principal); I25.2 Old myocardial infarction; I11.0 Hypertensive heart disease with heart failure; I50.9 Heart failure, unspecified; K21.9 Gastro-esophageal reflux disease without esophagitis; J44.9 Chronic obstructive pulmonary disease, unspecified; E05.90 Thyrotoxicosis, unspecified without thyrotoxic crisis or storm; Z88.0 Allergy status to penicillin; Z91.048 Other nonmedicinal substance allergy status; Z88.8 Allergy status to other drugs, medicaments and biological substances; Z88.1 Allergy status to other antibiotic agents; Z91.040 Latex allergy status; Z88.6 Allergy status to analgesic agent; Z79.899 Other long term (current) drug therapy
CPT/HCPCS: 10060; 87070; 87077; 87186; 87205; 99282; A9270

== ENCOUNTER 2019-02-27 08:05 | Emergency (ER) | payer MEDICARE ==
[2019-02-27 08:26] VITALS: BP 139/77; PULSE 64
--- NOTE | 2019-02-27 08:43 | EDM.PDOC ---
ED HPI GENERAL MEDICAL PROBLEM - General Chief Complaint: Skin Complaint Stated Complaint: FOLLOW UP ON HAND Time Seen by Provider: 02/27/19 08:30 Source of Information: Reports: Patient History Limitations: Reports: No Limitations - History of Present Illness INITIAL COMMENTS - FREE TEXT/NARRATIVE: 83-year-old female in for a wound recheck. She had an I&D procedure on her hand , placed on Bactrim and a culture was obtained. The infection is sensitive to Bactrim, its improving and dry but she was told to have a recheck so she is here for that. No fevers or chills. Location: Reports: Upper Extremity, Right Associated Symptoms: Reports: No Other Symptoms denies Pain Score (Numeric/FACES): 0 - Related Data Allergies Allergy/AdvReac Type Severity Reaction Status Date / Time Penicillins Allergy Intermediate Hives Verified 02/27/19 08:22 adhesive tape Allergy Cannot Verified 02/27/19 08:22 Remember Bleach (Sodium Hypochlorite) Allergy Rash Verified 02/27/19 08:22 doxycycline Allergy Rash Verified 02/27/19 08:22 metronidazole Allergy Rash Verified 02/27/19 08:22 oxycodone Allergy Cannot Verified 02/27/19 08:22 Remember latex Allergy Blisters Uncoded 02/27/19 08:22 Home Meds: Home Meds Cholecalciferol (Vitamin D3) [Vitamin D3] 2,000 units PO DAILY 08/04/13 [History ] Cyanocobalamin (Vitamin B12) [Vitamin B12] 1,000 mcg PO DAILY 08/04/13 [History] Cyclobenzaprine [Flexeril] 5 mg PO TID PRN 08/04/13 [History] Ipratropium/Albuterol Sulfate [Iprat-Albut 0.5-3(2.5) MG/3 ML] 1 ampule NEB QID PRN 08/04/13 [History] Nitroglycerin [Nitrostat] 0.4 mg SL ASDIRECTED PRN 08/04/13 [History] Ramipril [Altace] 10 mg PO DAILY 08/04/13 [History] Rosuvastatin [Crestor] 20 mg PO DAILY 08/11/14 [History] Acetaminophen [Tylenol] 325 mg PO Q6H PRN 07/11/15 [History] Acetaminophen/HYDROcodone [[place] 325-5 MG] 1 tab PO Q6H PRN 07/11/15 [History] Bacitracin [Bacitracin Oint] 1 applic TOP BID 07/11/15 [History] Ibuprofen 800 mg PO TID PRN 07/11/15 [History] Trolamine Salicylate/Aloe Vera [Aspercreme 10% Cream] 1 applic TP ASDIRECTED PRN 07/11/15 [History] diphenhydrAMINE [Benadryl] 50 mg PO Q6H PRN 07/11/15 [History] Pantoprazole [ProTONIX] 40 mg PO DAILY #30 tab.cr 01/11/16 [Rx] Albuterol/Ipratropium [Combivent Respimat] 1 dose INH ASDIRECTED 01/29/19 [ History] Azelastine [Optivar 0.05% Ophth Soln] 2 drop EYEBOTH QID 01/29/19 [History] Montelukast [Singulair] 1 tab PO BEDTIME 01/29/19 [History] tiZANidine [Zanaflex] 1 tab PO ASDIRECTED 01/29/19 [History] Sulfamethoxazole/Trimethoprim [Bactrim Ds Tablet] 1 each PO Q12H #15 tablet 05/04 [Rx] Albuterol/Ipratropium [Combivent Respimat] 4 gm IH ASDIRECTED PRN 02/27/19 [ History] Sulfamethoxazole/Trimethoprim [Sulfamethoxazole-Tmp Ds Tablet] 1 each PO BID [History] Past Medical History HEENT History: Reports: Cataract, Impaired Vision, Sinusitis, Other (See Below) Other HEENT History: detached retinas Cardiovascular History: Reports: Arrhythmia, Heart Failure, High Cholesterol, Hypertension, [place] Other Cardiovascular History: "fluid around the heart", CHF Respiratory History: Reports: COPD, SOB Gastrointestinal History: Reports: Colon Polyp, GERD Genitourinary History: Reports: Renal Disease 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: cervix stitch with 4 Musculoskeletal History: Reports: Fracture, Osteoarthritis, Osteoporosis, Other (See Below) Other Musculoskeletal History: degeneration of back Endocrine/Metabolic History: Reports: Hyperthyroidism Hematologic History: Reports: Anemia, Blood Transfusion(s), Iron Deficiency Dermatologic History: Reports: Eczema, Psoriasis, Other (See Below) Other Dermatologic History: wound r lateral hand - Infectious Disease History Infectious Disease History: Reports: Chicken Pox, Measles, Mumps - Past Surgical History Head Surgeries/Procedures: Reports: None HEENT Surgical History: Reports: Cataract Surgery GI Surgical History: Reports: Appendectomy, Colonoscopy, EGD, Hernia Repair/ Other Female Surgical History: Reports: Section Endocrine Surgical History: Reports: Thyroid Biopsy Social & Family History - Family History Family Medical History: Noncontributory Oncologic: Reports: Colon - Tobacco Use Smoking Status *Q: Current Some Day Smoker Years of Tobacco use: 50 Packs/Tins Daily: 0.2 Used Tobacco, but Quit: No Second Hand Smoke Exposure: Yes - Caffeine Use Caffeine Use: Reports: Coffee - Recreational Drug Use Recreational Drug Use: No ED ROS GENERAL - Review of Systems Review Of Systems: See Below Constitutional: Denies: Fever, Chills Respiratory: Denies: Shortness of Breath GI/Abdominal: Denies: Nausea, Vomiting ED EXAM, SKIN/RASH Exam: See Below Exam Limited By: No Limitations General Appearance: Alert, No Apparent Distress Respiratory/Chest: No Respiratory Distress Extremities: Other (Exam is otherwise limited to the right hand. The area of I& D is dry, flat, and looks like it is healing very nicely.) Course - Vital Signs Last Recorded V/S: Last Vital Signs Temp 96.6 F 02/27/19 08:29 Pulse 64 02/27/19 08:29 Resp 13 02/27/19 08:29 BP 139/77 02/27/19 08:29 Pulse Ox 96 02/27/19 08:29 - Re-Assessments/Exams Free Text/Narrative Re-Assessment/Exam: 02/27/19 08:41 Continue with the antibiotics for at least 3-5 more days. She can finish the antibiotic if she is not getting side effects. Return anytime if worsening. Departure - Departure Time of Disposition: 08:52 Disposition: Home, Self-Care 01 Clinical Impression: Encounter for wound re-check - Discharge Information Instructions: Wound Care, Adult Referrals: PCP,None [Primary Care Provider] - Forms: ED Department Discharge Care Plan Goals: Continue your antibiotic twice daily for the next 3-5 days. Return if worsening despite treatment.
== END 2019-02-27 08:52 | disposition home or self-care (01) ==
LOC: JP.ED 08:05
DX: Z48.817 Encounter for surgical aftercare following surgery on the skin and subcutaneous tissue (principal); I11.0 Hypertensive heart disease with heart failure; I50.9 Heart failure, unspecified; F17.210 Nicotine dependence, cigarettes, uncomplicated; Z91.09 Other allergy status, other than to drugs and biological substances; Z88.1 Allergy status to other antibiotic agents; Z88.0 Allergy status to penicillin; Z88.6 Allergy status to analgesic agent; Z91.040 Latex allergy status; Z79.899 Other long term (current) drug therapy; I25.2 Old myocardial infarction; K21.9 Gastro-esophageal reflux disease without esophagitis
CPT/HCPCS: 99282

== ENCOUNTER 2019-09-25 02:35 | Inpatient (IN) | payer MEDICARE ==
[2019-09-25] MEDS ORDERED: HYDROmorphone 0.5 MG/0.5 ML Syringe IVPUSH ONE (03:20)
--- NOTE | 2019-09-25 03:28 | EDM.PDOC ---
ED HPI GENERAL MEDICAL PROBLEM - General Chief Complaint: Gastrointestinal Problem Stated Complaint: MEDICAL Time Seen by Provider: 09/25/19 03:10 Source of Information: Reports: Patient History Limitations: Reports: No Limitations - History of Present Illness INITIAL COMMENTS - FREE TEXT/NARRATIVE: Presents with sudden onset bright red blood per rectum. Patient has remotely had this previously, which she states was diagnosed as a ulcer. She has experienced abdominal pain. She has COPD and wears oxygen at night but has noticed in the last couple days she's been more short of breath than usual. Onset: Today Duration: Heavy Location: Reports: Abdomen (Right lower quadrant. Denies rectal pain) Quality: Reports: Sharp Severity: Severe Associated Symptoms: Reports: Cough, Shortness of Breath, Weakness. Denies: Fever/Chills, Loss of Appetite, Nausea/Vomiting, Rash, Syncope - Related Data Allergies Allergy/AdvReac Type Severity Reaction Status Date / Time Penicillins Allergy Intermediate Hives Verified 09/25/19 02:48 adhesive tape Allergy Cannot Verified 09/25/19 02:48 Remember atorvastatin [From Lipitor] Allergy Muscle Verified 09/25/19 02:48 Aches Bleach (Sodium Hypochlorite) Allergy Rash Verified 09/25/19 02:48 doxycycline Allergy Rash Verified 09/25/19 02:48 metronidazole Allergy Rash Verified 09/25/19 02:48 oxycodone Allergy Cannot Verified 09/25/19 02:48 Remember povidone-iodine Allergy Rash Verified 09/25/19 02:48 [From Betadine] soap [From Betadine] Allergy Rash Verified 09/25/19 02:48 latex Allergy Blisters Uncoded 02/27/19 08:22 Home Meds: Home Meds Nitroglycerin [Nitrostat] 0.4 mg SL ASDIRECTED PRN 08/04/13 [History] Rosuvastatin [Crestor] 20 mg PO DAILY 08/11/14 [History] Acetaminophen [Tylenol] 325 mg PO Q6H PRN 07/11/15 [History] Bacitracin [Bacitracin Oint] 1 applic TOP BID 07/11/15 [History] Trolamine Salicylate/Aloe Vera [Aspercreme 10% Cream] 1 applic TP ASDIRECTED PRN 07/11/15 [History] diphenhydrAMINE [Benadryl] 50 mg PO Q6H PRN 07/11/15 [History] Pantoprazole [ProTONIX] 40 mg PO DAILY #30 tab.cr 01/11/16 [Rx] Albuterol/Ipratropium [Combivent Respimat] 1 dose INH ASDIRECTED 01/29/19 [ History] Azelastine [Optivar 0.05% Ophth Soln] 2 drop EYEBOTH QID 01/29/19 [History] Montelukast [Singulair] 1 tab PO BEDTIME 01/29/19 [History] tiZANidine [Zanaflex] 1 tab PO BEDTIME PRN 01/29/19 [History] Acetaminophen/HYDROcodone [[place] 325-5 MG] 1 tab PO Q6H PRN 09/25/19 [History] Ammonium Lactate [Lac-Hydrin 12% Crm] 1 applic TOP BID PRN 09/25/19 [History] Calcium Carbonate/Vitamin D3 [Calcium 500-Vit D3 125 Caplet] 1 tab PO DAILY 05/05 [History] Cholecalciferol (Vitamin D3) [Vitamin D3] 2,000 unit PO DAILY 09/25/19 [History] Cyanocobalamin (Vitamin B-12) [B-12] 1,000 mcg PO DAILY 09/25/19 [History] Diclofenac Sodium [Voltaren] 1 tab PO DAILY PRN 09/25/19 [History] Fluticasone Propion/Salmeterol [Fluticasone-Salmeterol 232-14] 1 puff INH BID [History] Magnesium Oxide [Magnesium] 500 mg PO DAILY 09/25/19 [History] Melatonin 1 tab PO BEDTIME PRN 09/25/19 [History] Teriparatide [Forteo] 0.08 ml SQ DAILY 09/25/19 [History] diphenhydrAMINE HCl [Banophen] 2 tab PO Q6HR PRN 09/25/19 [History] guaiFENesin [Mucinex] 600 mg PO BID PRN 09/25/19 [History] Past Medical History HEENT History: Reports: Cataract, Impaired Vision, Sinusitis, Other (See Below) Other HEENT History: detached retinas Cardiovascular History: Reports: Arrhythmia, Heart Failure, High Cholesterol, Hypertension, [place] Other Cardiovascular History: "fluid around the heart", CHF Respiratory History: Reports: COPD, SOB, Other (See Below) (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 Patient states she was sent for ago and diagnosed at that time with ulcer) Genitourinary History: Reports: Renal Disease RECORD SYSTEMS ANALYST History: Reports: Other RECORD SYSTEMS ANALYST History: cervix stitch with 4 Musculoskeletal History: Reports: Fracture, Osteoarthritis, Osteoporosis, Other (See Below) Other Musculoskeletal History: degeneration of back Endocrine/Metabolic History: Reports: Hyperthyroidism Other Endocrine/Metabolic History: Patient tells me she's been diagnosed with thyroid cancer Hematologic History: Reports: Anemia, Blood Transfusion(s), Iron Deficiency Oncologic (Cancer) History: Reports: Metastatic, Thyroid Dermatologic History: Reports: Eczema, Psoriasis, Other (See Below) Other Dermatologic History: wound r lateral hand - Infectious Disease History Infectious Disease History: Reports: Chicken Pox, Measles, Mumps - Past Surgical History Head Surgeries/Procedures: Reports: None HEENT Surgical History: Reports: Cataract Surgery GI Surgical History: Reports: Appendectomy, Colonoscopy, EGD, Hernia Repair/ Other Female Surgical History: Reports: Section Endocrine Surgical History: Reports: Thyroid Biopsy Social & Family History - Family History Family Medical History: Noncontributory Oncologic: Reports: Colon - Tobacco Use Smoking Status *Q: Current Every Day Smoker Years of Tobacco use: 60 Packs/Tins Daily: 0.1 - Caffeine Use Caffeine Use: Reports: Coffee - Recreational Drug Use Recreational Drug Use: No ED ROS GENERAL - Review of Systems Review Of Systems: See Below Constitutional: Reports: Weakness, Fatigue. Denies: Fever HEENT: Reports: Other (Dry mouth). Denies: Nosebleed Respiratory: Reports: Shortness of Breath, Wheezing. Denies: Pleuritic Chest Pain, Hemoptysis Cardiovascular: Reports: Blood Pressure Problem, Dyspnea on Exertion, Lightheadedness. Denies: Chest Pain, Edema Endocrine: Reports: Fatigue GI/Abdominal: Reports: Abdominal Pain, Bloody Stool, Distension, Nausea. Denies : Vomiting : Denies: Dysuria, Pain Musculoskeletal: Reports: No Symptoms Skin: Reports: No Symptoms Neurological: Reports: No Symptoms Psychiatric: Reports: Anxiety Hematologic/Lymphatic: Reports: Anemia ED EXAM, GI/ABD - Physical Exam Exam: See Below Exam Limited By: No Limitations General Appearance: Alert, Anxious Eyes: Bilateral: Normal Appearance, EOMI Ears: Normal External Exam Nose: Normal Inspection Throat/Mouth: Normal Voice, Other (Dry mucous membranes) Head: Atraumatic, Normocephalic. No: Facial Swelling Neck: Normal Inspection, Non-Tender. No: Lymphadenopathy (R), Lymphadenopathy ( L) Respiratory/Chest: Respiratory Distress, Wheezing, Accessory Muscle Use, Retractions, Prolonged Expiration, Other (Short of breath enough that it is difficult for her to finish simple sentences) Cardiovascular: Normal Peripheral Pulses, No Edema, No JVD GI/Abdominal Exam: Normal Bowel Sounds, Distended, Tender (Right lower quadrant grapefruit size mass palpated with exquisite tenderness), Mass, Other (The patient is noted to have a moderate amount of bright red blood in her diaper area there is also black stool noted. No active bleeding seen) Extremities: Normal Inspection, No Pedal Edema Neurological: Alert, Oriented, Normal Cognition Psychiatric: Anxious Skin Exam: Warm, Dry, No Rash. No: Ecchymosis EKG INTERPRETATION EKG Date: 09/25/19 Time: 03:36 Rhythm: NSR Rate (Beats/Min): 63 [place]: Normal P-Wave: Present ST-T: Normal Course - Vital Signs Text/Narrative:: Given the patient's dry mucous membranes, 1 L of IV fluid has been ordered. The patient previously has been transferred to [place] because of gastrointestinal hemorrhage. She expresses that she would prefer to stay here for this episode if at all possible. I told her at the time of the initial encounter that she would have to be admitted to the hospital somewhere because of the amount of bright red blood that she is reporting. She will need to be watched closely and will most likely need urgent colonoscopy. At 604 I discussed the patient with the hospitalist. Last Recorded V/S: Last Vital Signs Temp 36.6 C 09/25/19 02:49 Pulse 61 09/25/19 02:49 Resp 18 09/25/19 02:49 BP 148/78 H 09/25/19 02:49 Pulse Ox 95 09/25/19 02:49 Orthostatic Blood Pressure [ 158/83 Standing] Orthostatic Blood Pressure [ 142/82 Sitting] Orthostatic Blood Pressure [ 136/76 Supine] - Orders/Labs/Meds Orders: Active Orders 24 hr Category Date Time Status EKG Documentation Completion [RC] ASDIRECTED Care 09/25/19 03:19 Active Orthostatic Vital Signs [RC] ASDIRECTED Care 09/25/19 03:21 Active Chest 2V [CR] Stat Exams 09/25/19 03:18 Taken UA W/MICROSCOPIC [URIN] Stat Lab 09/25/19 03:17 Ordered Pantoprazole [ProTONIX IV] 80 mg Med 09/25/19 03:45 Active Sodium Chloride 0.9% [Normal Saline] 100 ml IV .BOLUS Sodium Chloride 0.9% [Normal Saline] 1,000 ml Med 09/25/19 03:30 Active IV ASDIRECTED Sodium Chloride 0.9% [Normal Saline] 74 ml Med 09/25/19 04:30 Active IV ASDIRECTED EKG 12 Lead [EK] Stat Ther 09/25/19 03:17 Ordered Medication Orders Sodium Chloride (Normal Saline) 1,000 mls @ 500 mls/hr IV ASDIRECTED SAMUEL Last Admin: 09/25/19 03:30 Dose: 500 mls/hr Pantoprazole Sodium 80 mg/ (Sodium Chloride) 100 mls @ 200 mls/hr IV .BOLUS SAMUEL Last Admin: 09/25/19 03:46 Dose: 200 mls/hr Sodium Chloride (Normal Saline) 74 mls @ 3 mls/sec IV ASDIRECTED SAMUEL Last Admin: 09/25/19 04:42 Dose: 3 mls/sec Labs: Laboratory Tests 09/25/19 09/25/19 09/25/19 Range/Units 03:05 03:05 03:05 WBC 6.6 (4.5-11.0) K/uL RBC 4.41 (3.30-5.50) M/uL Hgb 13.5 (12.0-15.0) g/dL Hct 41.7 (36.0-48.0) % MCV 95 (80-98) fL MCH 31 (27-31) pg MCHC 32 (32-36) % Plt Count 217 (150-400) K/uL PT 10.1 (9.5-12.0) sec INR 0.93 (0.80-1.20) Sodium 137 L (140-148) mmol/L Potassium 4.6 (3.6-5.2) mmol/L Chloride 103 (100-108) mmol/L Carbon Dioxide 26 (21-32) mmol/L Anion Gap 12.6 (5.0-14.0) mmol/L BUN 25 H (7-18) mg/dL Creatinine 1.0 (0.6-1.0) mg/dL Est Cr Clr Drug Dosing 32.94 mL/min Estimated GFR (MDRD) 53 L (>60) Glucose 125 H (74-106) mg/dL Lactic Acid (0.4-2.0) mmol/L Calcium 9.2 (8.5-10.1) mg/dL Total Bilirubin 0.4 D (0.2-1.0) mg/dL AST 15 (15-37) U/L ALT 21 (12-78) U/L Alkaline Phosphatase 91 (46-116) U/L Troponin I (0.000-0.056) ng/mL Total Protein 6.3 L (6.4-8.2) g/dL Albumin 3.2 L (3.4-5.0) g/dL Globulin 3.1 (2.3-3.5) g/dL Albumin/Globulin Ratio 1.0 L (1.2-2.2) Blood Type Gel Antibody Screen 09/25/19 09/25/19 09/25/19 Range/Units 03:05 03:05 03:05 WBC (4.5-11.0) K/uL RBC (3.30-5.50) M/uL Hgb (12.0-15.0) g/dL Hct (36.0-48.0) % MCV (80-98) fL MCH (27-31) pg MCHC (32-36) % Plt Count (150-400) K/uL PT (9.5-12.0) sec INR (0.80-1.20) Sodium (140-148) mmol/L Potassium (3.6-5.2) mmol/L Chloride (100-108) mmol/L Carbon Dioxide (21-32) mmol/L Anion Gap (5.0-14.0) mmol/L BUN (7-18) mg/dL Creatinine (0.6-1.0) mg/dL Est Cr Clr Drug Dosing mL/min Estimated GFR (MDRD) (>60) Glucose (74-106) mg/dL Lactic Acid 1.5 (0.4-2.0) mmol/L Calcium (8.5-10.1) mg/dL Total Bilirubin (0.2-1.0) mg/dL AST (15-37) U/L ALT (12-78) U/L Alkaline Phosphatase (46-116) U/L Troponin I < 0.017 (0.000-0.056) ng/mL Total Protein (6.4-8.2) g/dL Albumin (3.4-5.0) g/dL Globulin (2.3-3.5) g/dL Albumin/Globulin Ratio (1.2-2.2) Blood Type A POSITIVE Gel Antibody Screen Negative Meds: Medications Generic Name Dose Route Start Last Admin Trade Name Freq PRN Reason Stop Dose Admin Sodium Chloride 1,000 mls @ 500 mls/hr 09/25/19 03:30 09/25/19 03:30 Normal Saline IV 500 mls/hr ASDIRECTED SAMUEL Administration Pantoprazole Sodium 80 mg/ 100 mls @ 200 mls/hr 09/25/19 03:45 09/25/19 03:46 Sodium Chloride IV 200 mls/hr .BOLUS SAMUEL Administration Sodium Chloride 74 mls @ 3 mls/sec 09/25/19 04:30 09/25/19 04:42 Normal Saline IV 3 mls/sec ASDIRECTED SAMUEL Administration Discontinued Medications Generic Name Dose Route Start Last Admin Trade Name Freq PRN Reason Stop Dose Admin Hydromorphone HCl 0.5 mg 09/25/19 03:20 09/25/19 03:26 Dilaudid IVPUSH 09/25/19 03:21 0.5 mg ONETIME ONE Administration Iopamidol 85 ml 09/25/19 04:21 09/25/19 04:42 Isovue-300 (61%) IV 09/25/19 04:22 85 ml . DIRECTED ONE Administration - Radiology Interpretation CT Results Date: 09/25/19 (Large amounts of stool. Colonic diverticulosis without diverticulitis. Secondary aortic aneurysm slightly larger than 5 cm. Cholelithiasis) Departure - Departure Time of Disposition: 06:05 Disposition: Admitted As Inpatient 67 Condition: Fair Clinical Impression: Abdominal pain, Gastrointestinal bleeding, lower - Discharge Information Referrals: Leadbetter,Maurice, MD [Primary Care Provider] - Forms: ED Department Discharge Sepsis Event Note - Evaluation Sepsis Screening Result: No Definite Risk - Focused Exam Vital Signs: Vital Signs Temp Pulse Resp BP Pulse Ox 09/25/19 02:49 36.6 C 61 18 148/78 H 95 Date Exam was Performed: 09/25/19 Time Exam was Performed: 06:07 - My Orders Last 24 Hours: My Active Orders 09/25/19 03:17 UA W/MICROSCOPIC [URIN] Stat EKG 12 Lead [EK] Stat 09/25/19 03:18 Chest 2V [CR] Stat 09/25/19 03:19 EKG Documentation Completion [RC] ASDIRECTED 09/25/19 03:21 Orthostatic Vital Signs [RC] ASDIRECTED 09/25/19 03:30 Sodium Chloride 0.9% [Normal Saline] 1,000 ml IV ASDIRECTED 09/25/19 03:45 Pantoprazole [ProTONIX IV] 80 mg Sodium Chloride 0.9% [Normal Saline] 100 ml IV .BOLUS 09/25/19 04:30 Sodium Chloride 0.9% [Normal Saline] 74 ml IV ASDIRECTED - Assessment/Plan Last 24 Hours: My Active Orders 09/25/19 03:17 UA W/MICROSCOPIC [URIN] Stat EKG 12 Lead [EK] Stat 09/25/19 03:18 Chest 2V [CR] Stat 09/25/19 03:19 EKG Documentation Completion [RC] ASDIRECTED 09/25/19 03:21 Orthostatic Vital Signs [RC] ASDIRECTED 09/25/19 03:30 Sodium Chloride 0.9% [Normal Saline] 1,000 ml IV ASDIRECTED 09/25/19 03:45 Pantoprazole [ProTONIX IV] 80 mg Sodium Chloride 0.9% [Normal Saline] 100 ml IV .BOLUS 09/25/19 04:30 Sodium Chloride 0.9% [Normal Saline] 74 ml IV ASDIRECTED
[2019-09-25] MEDS ORDERED: Sodium Chloride 0.9% 1,000 ML IV SCH (03:30)
[2019-09-25] MEDS ORDERED: Pantoprazole 80 MG in Sodium Chloride 0.9% 100 ML IV SCH (03:45)
[2019-09-25] MEDS ORDERED: Iopamidol 612 MG/ML 100 ML Bottle IV ONE (04:21)
--- NOTE | 2019-09-25 05:19 | CRLCT ---
INDICATION: Right lower quadrant mass and gastrointestinal bleeding TECHNIQUE: Axial images were obtained from the diaphragm to the pubic symphysis. Reformats were obtained in the coronal and sagittal plane. IV Contrast: 84 cc Isovue-300 Oral Contrast: None COMPARISON: None. FINDINGS: Lower chest: Left lower lobe pulmonary nodule measuring 11 millimeters. Small hiatal hernia. Liver: Unremarkable. Normal in size and attenuation. No masses. Gallbladder and bile ducts: Cholelithiasis with some calcification of the gallbladder wall. Spleen: Unremarkable. Normal in size without mass. Pancreas: Moderate pancreatic atrophy. Adrenal glands: Nodule involving the left adrenal gland measuring 3.4 x 2.0 centimeters. Kidneys: Symmetric hydronephrosis with exophytic cyst lateral aspect left kidney. Vasculature: Atherosclerosis with saccular aneurysm of the infrarenal abdominal aorta extending right lateral measuring 5.2 centimeters. GI tract: Small hiatal hernia. Stomach is decompressed. Small bowel decompressed. Colonic diverticulosis with large amount of stool within the colon. Slight areas of wall thickening within the sigmoid colon, likely secondary to severe diverticulosis in this region. Pelvis: Uterus and bladder are unremarkable. Left ovarian cyst measuring 2.5 centimeters. Bones: Bilateral inferior pubic rami fractures, old. Old left sacral alar fracture. Old compression fractures of T12 and L1 through L5. IMPRESSION: 1. Colonic diverticulosis without [place] diverticulitis. Large amount of stool within the colon. 2. Saccular infrarenal abdominal aortic aneurysm measuring up to 5.2 centimeters. 3. Cholelithiasis without CT evidence of cholecystitis. 4. Indeterminate left lower lobe pulmonary nodule measuring 11 millimeters. Recommend follow-up CT scan in 3 months, PET-CT or tissue sampling. 5. Indeterminate left adrenal nodule measuring up to 3.4 centimeters. Considering its size, follow up outpatient adrenal MRI suggested for further characterization for 6. Other incidental findings as detailed above. Please note that all CT scans at this facility use dose modulation, iterative reconstruction, and/or weight-based dosing when appropriate to reduce radiation dose to as low as reasonably achievable. Dictated by Dilan Bermudez MD @ Sep 25 2019 5:03AM Signed by Dr. Dilan Bermudez @ Sep 25 2019 5:17AM
--- NOTE | 2019-09-25 07:50 | PCM.HP.2 ---
H&P History of Present Illness - General Date of Service: 09/25/19 Admit Problem/Dx: Admission Diagnosis/Problem Admission Diagnosis/Problem Acute lower gastrointestinal hemorrhage Source of Information: Patient, Provider History Limitations: Reports: No Limitations - History of Present Illness Initial Comments - Free Text/Narative: CC: There was blood everywhere HPI: Rosaura presents to the emergency room today with bright red blood per rectum. She reports that she was in her usual state of health yesterday with no significant changes. She woke up early this morning thinking she had to urinate. When she woke up she noted that her nightgown was all wet but when she turned the light on it was covered in blood. She went to the bathroom thinking she was going to have a bowel movement and passed a large amount of red blood. She has not had large additional bloody bowel movements since that time but has passed small amounts of blood since that time. She has not had any abdominal pain. She has not had any fevers or chills. No nausea or hematemesis. She had not noted a change in bowel habits prior to developing the bleeding early this morning. She does not feel short of breath. She does not feel weak or dizzy. She does have a history of both bleeding peptic ulcers as well as an episode of suspected lower GI bleeding about 6 years ago. No definite source was found at that time. Work-up in the emergency room so far has been fairly unremarkable. Her hemoglobin is 13. Her vital signs are stable. She is not in any distress. Chest x-ray was clear. CT scan of the abdomen and pelvis did not show an acute source of bleeding but did note a variety of things that will need outpatient follow-up. She will be admitted to the hospital for management of a lower gastrointestinal hemorrhage. - Related Data Allergies/Adverse Reactions: Allergies Allergy/AdvReac Type Severity Reaction Status Date / Time Penicillins Allergy Intermediate Hives Verified 09/25/19 02:48 adhesive tape Allergy Cannot Verified 09/25/19 02:48 Remember atorvastatin [From Lipitor] Allergy Muscle Verified 09/25/19 02:48 Aches Bleach (Sodium Hypochlorite) Allergy Rash Verified 09/25/19 02:48 doxycycline Allergy Rash Verified 09/25/19 02:48 metronidazole Allergy Rash Verified 09/25/19 02:48 oxycodone Allergy Cannot Verified 09/25/19 02:48 Remember povidone-iodine Allergy Rash Verified 09/25/19 02:48 [From Betadine] soap [From Betadine] Allergy Rash Verified 09/25/19 02:48 latex Allergy Blisters Uncoded 02/27/19 08:22 Home Medications: Home Meds Nitroglycerin [Nitrostat] 0.4 mg SL ASDIRECTED PRN 08/04/13 [History] Rosuvastatin [Crestor] 20 mg PO DAILY 08/11/14 [History] Acetaminophen [Tylenol] 325 mg PO Q6H PRN 07/11/15 [History] Bacitracin [Bacitracin Oint] 1 applic TOP BID 07/11/15 [History] Trolamine Salicylate/Aloe Vera [Aspercreme 10% Cream] 1 applic TP ASDIRECTED PRN 07/11/15 [History] diphenhydrAMINE [Benadryl] 50 mg PO Q6H PRN 07/11/15 [History] Pantoprazole [ProTONIX] 40 mg PO DAILY #30 tab.cr 01/11/16 [Rx] Albuterol/Ipratropium [Combivent Respimat] 1 dose INH ASDIRECTED 01/29/19 [ History] Azelastine [Optivar 0.05% Ophth Soln] 2 drop EYEBOTH QID 01/29/19 [History] Montelukast [Singulair] 1 tab PO BEDTIME 01/29/19 [History] tiZANidine [Zanaflex] 1 tab PO BEDTIME PRN 01/29/19 [History] Acetaminophen/HYDROcodone [Ray 325-5 MG] 1 tab PO Q6H PRN 09/25/19 [History] Ammonium Lactate [Lac-Hydrin 12% Crm] 1 applic TOP BID PRN 09/25/19 [History] Calcium Carbonate/Vitamin D3 [Calcium 500-Vit D3 125 Caplet] 1 tab PO DAILY 05/05 [History] Cholecalciferol (Vitamin D3) [Vitamin D3] 2,000 unit PO DAILY 09/25/19 [History] Cyanocobalamin (Vitamin B-12) [B-12] 1,000 mcg PO DAILY 09/25/19 [History] Diclofenac Sodium [Voltaren] 1 tab PO DAILY PRN 09/25/19 [History] Fluticasone Propion/Salmeterol [Fluticasone-Salmeterol 232-14] 1 puff INH BID [History] Magnesium Oxide [Magnesium] 500 mg PO DAILY 09/25/19 [History] Melatonin 1 tab PO BEDTIME PRN 09/25/19 [History] Teriparatide [Forteo] 0.08 ml SQ DAILY 09/25/19 [History] diphenhydrAMINE HCl [Banophen] 2 tab PO Q6HR PRN 09/25/19 [History] guaiFENesin [Mucinex] 600 mg PO BID PRN 09/25/19 [History] Past Medical History HEENT History: Reports: Cataract, Impaired Vision, Sinusitis, Other (See Below) Other HEENT History: detached retinas Cardiovascular History: Reports: Arrhythmia, Heart Failure, High Cholesterol, Hypertension, [place] Other Cardiovascular History: "fluid around the heart", CHF Respiratory History: Reports: COPD, SOB, Other (See Below) (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 OB/BYN History: cervix stitch with 4 Musculoskeletal History: Reports: Fracture, Osteoarthritis, Osteoporosis, Other (See Below) Other Musculoskeletal History: degeneration of back Endocrine/Metabolic History: Reports: Hyperthyroidism Other Endocrine/Metabolic History: Patient tells me she's been diagnosed with thyroid cancer Hematologic History: Reports: Anemia, Blood Transfusion(s), Iron Deficiency Oncologic (Cancer) History: Reports: Metastatic, Thyroid Dermatologic History: Reports: Eczema, Psoriasis, Other (See Below) Other Dermatologic History: wound r lateral hand - Infectious Disease History Infectious Disease History: Reports: Chicken Pox, Measles, Mumps - Past Surgical History Head Surgeries/Procedures: Reports: None HEENT Surgical History: Reports: Cataract Surgery GI Surgical History: Reports: Appendectomy, Colonoscopy, EGD, Hernia Repair/ Other Female Surgical History: Reports: Section Endocrine Surgical History: Reports: Thyroid Biopsy Social & Family History - Family History Family Medical History: Noncontributory Oncologic: Reports: Colon - Tobacco Use Smoking Status *Q: Current Every Day Smoker Years of Tobacco use: 60 Packs/Tins Daily: 0.1 - Caffeine Use Caffeine Use: Reports: Coffee - Alcohol Use Alcohol Use History: No - Recreational Drug Use Recreational Drug Use: No H&P Review of Systems - Review of Systems: Review Of Systems: See Below Free Text/Narrative: A complete 12 point review of systems was obtained. Pertinent positives and negatives are noted in the history of present illness. All other systems were reviewed and were negative except as noted. Exam - Exam Exam: See Below - Vital Signs Vital Signs: Last Vital Signs Temp 36.6 C 09/25/19 02:49 Pulse 63 09/25/19 06:08 Resp 18 09/25/19 06:08 BP 128/62 09/25/19 06:08 Pulse Ox 91 L 09/25/19 06:08 Orthostatic Blood Pressure [ 158/83 Standing] Orthostatic Blood Pressure [ 142/82 Sitting] Orthostatic Blood Pressure [ 136/76 Supine] Weight: 56.3 kg - Exam Quality Assessment: No: Supplemental Oxygen General: Alert, Oriented, Cooperative. No: Mild Distress HEENT: Conjunctiva Clear. No: Mucosa Moist & Greene (dry), Scleral Icterus Neck: Supple, Trachea Midline. No: Lymphadenopathy Lungs: Normal Respiratory Effort, Wheezing (mild diffuse exp ) Cardiovascular: Regular Rate, Regular Rhythm. No: Systolic Murmur GI/Abdominal Exam: Normal Bowel Sounds, Soft, No Distention, Tender (mild right lateral abdomen ) Extremities: No Pedal Edema. No: Increased Warmth Peripheral Pulses: 2+: Dorsalis Pedis (L), Dorsalis Pedis (R) Skin: Warm, Dry Neuro Extensive - Mental Status: Alert, Oriented x3, Nl Response to Commands Neuro Extensive - Motor, Sensory, Reflexes: No: Dysarthria, Abnormal Motor, Tremor Psychiatric: Alert, Normal Affect - Patient Data Lab Results Last 24 hrs: Laboratory Results - last 24 hr 09/25/19 09/25/19 09/25/19 Range/Units 03:05 03:05 03:05 WBC 6.6 (4.5-11.0) K/uL RBC 4.41 (3.30-5.50) M/uL Hgb 13.5 (12.0-15.0) g/dL Hct 41.7 (36.0-48.0) % MCV 95 (80-98) fL MCH 31 (27-31) pg MCHC 32 (32-36) % Plt Count 217 (150-400) K/uL PT 10.1 (9.5-12.0) sec INR 0.93 (0.80-1.20) Sodium 137 L (140-148) mmol/L Potassium 4.6 (3.6-5.2) mmol/L Chloride 103 (100-108) mmol/L Carbon Dioxide 26 (21-32) mmol/L Anion Gap 12.6 (5.0-14.0) mmol/L BUN 25 H (7-18) mg/dL Creatinine 1.0 (0.6-1.0) mg/dL Est Cr Clr Drug Dosing 32.94 mL/min Estimated GFR (MDRD) 53 L (>60) Glucose 125 H (74-106) mg/dL Lactic Acid (0.4-2.0) mmol/L Calcium 9.2 (8.5-10.1) mg/dL Total Bilirubin 0.4 D (0.2-1.0) mg/dL AST 15 (15-37) U/L ALT 21 (12-78) U/L Alkaline Phosphatase 91 (46-116) U/L Troponin I (0.000-0.056) ng/mL Total Protein 6.3 L (6.4-8.2) g/dL Albumin 3.2 L (3.4-5.0) g/dL Globulin 3.1 (2.3-3.5) g/dL Albumin/Globulin Ratio 1.0 L (1.2-2.2) Blood Type Gel Antibody Screen 09/25/19 09/25/19 09/25/19 Range/Units 03:05 03:05 03:05 WBC (4.5-11.0) K/uL RBC (3.30-5.50) M/uL Hgb (12.0-15.0) g/dL Hct (36.0-48.0) % MCV (80-98) fL MCH (27-31) pg MCHC (32-36) % Plt Count (150-400) K/uL PT (9.5-12.0) sec INR (0.80-1.20) Sodium (140-148) mmol/L Potassium (3.6-5.2) mmol/L Chloride (100-108) mmol/L Carbon Dioxide (21-32) mmol/L Anion Gap (5.0-14.0) mmol/L BUN (7-18) mg/dL Creatinine (0.6-1.0) mg/dL Est Cr Clr Drug Dosing mL/min Estimated GFR (MDRD) (>60) Glucose (74-106) mg/dL Lactic Acid 1.5 (0.4-2.0) mmol/L Calcium (8.5-10.1) mg/dL Total Bilirubin (0.2-1.0) mg/dL AST (15-37) U/L ALT (12-78) U/L Alkaline Phosphatase (46-116) U/L Troponin I < 0.017 (0.000-0.056) ng/mL Total Protein (6.4-8.2) g/dL Albumin (3.4-5.0) g/dL Globulin (2.3-3.5) g/dL Albumin/Globulin Ratio (1.2-2.2) Blood Type A POSITIVE Gel Antibody Screen Negative Result Diagrams: 09/25/19 03:05 09/25/19 03:05 Dell Results Last 24 hrs: Microbiology 09/25/19 05:03 Stool Occult Blood (DELL) - Final Stool / Feces Imaging Impressions Last 24 hrs: CXR -this image was personally reviewed -lungs are clear with no mass, infiltrate or effusion. Heart size is normal CT abd/pelvis -no source of bleeding identified with the CT scan. No abnormalities within the colon. She does have an adrenal mass which will need follow-up. She also has a lung nodule that will need follow-up and an abdominal aortic aneurysm at 5.2 cm. Sepsis Event Note - Evaluation Sepsis Screening Result: No Definite Risk - Focused Exam Vital Signs: Vital Signs Temp Pulse Resp BP Pulse Ox 09/25/19 06:08 63 18 128/62 91 L 09/25/19 05:00 57 L 19 136/65 94 L 09/25/19 02:49 36.6 C 61 18 148/78 H 95 Date Exam was Performed: 09/25/19 Time Exam was Performed: 09:43 *Q Meaningful Use (ADM) - VTE *Q VTE Pharmacological Contraindications *Q: Active Hemorrhage - VTE Risk Assess *Q Each Risk Factor Represents 1 Point: Abnormal Pulmonary Function (COPD) Total Score 1 Point Risk Factors: 1 Each Risk Factor Represents 2 Points: Malignancy (present or previous) Total Score 2 Point Risk Factors: 2 Each Risk Factor Represents 3 Points: Age 75 Years or Greater Total Score 3 Point Risk Factors: 3 Each Risk Factor Represents 5 Points: None Total Score 5 Point Risk Factors: 0 Venous Thromboembolism Risk Factor Score *Q: 6 - Problem List (1) Gastrointestinal bleeding, lower SNOMED Code(s): 16241150 ICD Code: K92.2 - GASTROINTESTINAL HEMORRHAGE, UNSPECIFIED Status: Acute Current Visit: Yes (2) COPD, Moderate chronic obstructive pulmonary disease SNOMED Code(s): 597423677 ICD Code: J44.9 - CHRONIC OBSTRUCTIVE PULMONARY DISEASE, UNSPECIFIED Status : Chronic Priority: Medium Current Visit: No (3) Pulmonary nodule, left SNOMED Code(s): 042659451 ICD Code: R91.1 - SOLITARY PULMONARY NODULE Status: Chronic Current Visit : Yes (4) Adrenal nodule SNOMED Code(s): 425785759 ICD Code: E27.8 - OTHER SPECIFIED DISORDERS OF ADRENAL GLAND Status: Chronic Current Visit: Yes (5) Abdominal aortic aneurysm (AAA) greater than 5.0 cm in diameter in female SNOMED Code(s): 410380572 ICD Code: I71.4 - ABDOMINAL AORTIC ANEURYSM, WITHOUT RUPTURE Status: Chronic Current Visit: Yes Problem List Initiated/Reviewed/Updated: Yes Orders Last 24hrs: Active Orders 24 hr Category Date Time Status Patient Status Manage Transfer [TRANSFER] Routine ADT 09/25/19 07:36 Ordered EKG Documentation Completion [RC] ASDIRECTED Care 09/25/19 03:19 Active Orthostatic Vital Signs [RC] ASDIRECTED Care 09/25/19 03:21 Active Chest 2V [CR] Stat Exams 09/25/19 03:18 Taken UA W/MICROSCOPIC [URIN] Stat Lab 09/25/19 03:17 Ordered Pantoprazole [ProTONIX IV] 80 mg Med 09/25/19 03:45 Active Sodium Chloride 0.9% [Normal Saline] 100 ml IV .BOLUS Sodium Chloride 0.9% [Normal Saline] 1,000 ml Med 09/25/19 03:30 Active IV ASDIRECTED Sodium Chloride 0.9% [Normal Saline] 74 ml Med 09/25/19 04:30 Active IV ASDIRECTED Resuscitation Status Routine Resus Stat 09/25/19 07:39 Ordered EKG 12 Lead [EK] Stat Ther 09/25/19 03:17 Ordered Medication Orders Sodium Chloride (Normal Saline) 1,000 mls @ 500 mls/hr IV ASDIRECTED [facility] Last Admin: 09/25/19 03:30 Dose: 500 mls/hr Pantoprazole Sodium 80 mg/ (Sodium Chloride) 100 mls @ 200 mls/hr IV .BOLUS [facility] Last Admin: 09/25/19 03:46 Dose: 200 mls/hr Sodium Chloride (Normal Saline) 74 mls @ 3 mls/sec IV ASDIRECTED [facility] Last Admin: 09/25/19 04:42 Dose: 3 mls/sec Assessment/Plan Comment:: ASSESSMENT AND PLAN - Acute gastrointestinal hemorrhage, likely lower-hemoglobin normal at this time but bleed did occur very recently. I would expect that her hemoglobin will drop over the next few hours. Currently her vital signs are stable. She has not had additional bright red blood per rectum since the initial episode. She has a history of similar. I suspect this is a diverticular bleed. CT scan did not show acute findings. -Type and screen 2 units -Repeat hemoglobin at 2 PM -Cardiac monitoring -IV fluids -Surgical consultation for EGD and colonoscopy in the morning -Colon prep this afternoon COPD-oxygen dependent at night. Mild wheezing this morning but otherwise stable. -Scheduled and as needed nebulizers -Oxygen as needed 5.2 cm AAA-found incidentally on CT scan and will need follow-up testing as an outpatient. Left lower lobe pulmonary nodule-recommend repeat CT scan in 3 months Left adrenal nodule-noted on CT scan. Outpatient CT or MRI was recommended. Maintenance issues - - DVT prophylaxis -mechanical with active hemorrhage - GI prophylaxis -PPI - Nutrition -clear liquids today, nothing by mouth after midnight - Hsu catheter -not indicated CODE STATUS -full code Admission justification -this patient will be admitted for inpatient services and is medically appropriate meeting medical necessity for inpatient admission as outlined in my documentation. I reasonably expect the patient will require inpatient services that span a period time over 2 midnights. I reasonably expect this patient to be discharged or transferred within 96 hours [facility]. Disposition -I would anticipate discharge home after the hospital stay Primary care physician -Dr Maurice Marrero M.D. - Mortality Measure Prognosis:: Good
[2019-09-25] MEDS ORDERED: LORazepam 2 MG/ML SDV IVPUSH PRN (08:00)
[2019-09-25] MEDS ORDERED: Albuterol 0.083% 2.5 MG/3 ML Neb Soln NEB PRN (08:00)
[2019-09-25] MEDS ORDERED: Acetaminophen/HYDROcodone 325-5 MG Tab PO PRN (08:00)
[2019-09-25] MEDS ORDERED: Magnesium Hydroxide 400 MG/5 ML Susp 30 ML Cup PO PRN (08:00)
[2019-09-25] MEDS ORDERED: Acetaminophen 325 MG Tab PO PRN (08:00)
[2019-09-25] MEDS ORDERED: tiZANidine 4 MG Tab PO PRN (08:00)
[2019-09-25] MEDS ORDERED: Ondansetron 4 MG Tab.DIS PO PRN (08:00)
[2019-09-25] MEDS ORDERED: guaiFENesin 600 MG Tab.ER PO PRN (08:00)
[2019-09-25] MEDS ORDERED: Ondansetron 4 MG/2 ML SDV IV PRN (08:00)
[2019-09-25] MEDS: Sodium Chloride 0.9% 1,000 ML IV SCH ×2 (09:18→23:13)
[2019-09-25] MEDS: Rosuvastatin 10 MG Tab PO SCH (09:39)
[2019-09-25] MEDS: Pantoprazole 40 MG Tab.CR PO SCH (09:39)
[2019-09-25] MEDS: Fluticasone-Salmeterol 232-14 MCG Powder Inhalent INH SCH ×2 (09:39→21:27)
[2019-09-25] MEDS: Albuterol/Ipratropium 3.0-0.5 MG/3 ML Neb Soln NEB SCH ×3 (10:27→21:27)
[2019-09-25] MEDS: Ketotifen 0.025% Ophth Soln 5 ML Bottle EYEBOTH SCH ×3 (10:52→21:28)
[2019-09-25] MEDS ORDERED: Polyethylene Glycol 3350 Powder 238 GM Bot PO ONE (14:00)
[2019-09-25] MEDS ORDERED: Bisacodyl 5 MG Tab PO ONE (14:00)
[2019-09-25] MEDS: Melatonin 3 MG Tab PO SCH (21:27)
[2019-09-25] MEDS: Montelukast 10 MG Tab PO SCH (21:28)
[2019-09-26] MEDS: Ketotifen 0.025% Ophth Soln 5 ML Bottle EYEBOTH SCH ×4 (05:30→21:26)
[2019-09-26] MEDS: Fluticasone-Salmeterol 232-14 MCG Powder Inhalent INH SCH ×2 (06:58→21:26)
[2019-09-26] MEDS: Albuterol/Ipratropium 3.0-0.5 MG/3 ML Neb Soln NEB SCH ×4 (06:58→21:24)
[2019-09-26] MEDS ORDERED: fentaNYL 100 MCG/2 ML SDV ONE (07:21)
[2019-09-26] MEDS ORDERED: Propofol 200 MG/20 ML SDV ONE (07:21)
[2019-09-26] MEDS: Sodium Chloride 0.9% 1,000 ML IV SCH (07:58)
[2019-09-26] MEDS: Rosuvastatin 10 MG Tab PO SCH (09:13)
[2019-09-26] MEDS: Pantoprazole 40 MG Tab.CR PO SCH (09:13)
--- NOTE | 2019-09-26 09:25 | PCM.PN ---
- General Info Date of Service: 09/26/19 Subjective Update: No acute events overnight. Colon prep was not great and she has not had significant bowel movements as of yet. No complaints of abdominal pain or nausea. No hematochezia has been noted. Vital signs have been stable. Hemoglobin level dropped slightly but remains just under 12. No complaints of shortness of breath. Functional Status: Reports: Pain Controlled, Tolerating Diet - Review of Systems Gastrointestinal: Denies: Abdominal Pain, Hematochezia - Patient Data Vitals - Most Recent: Last Vital Signs Temp 35.7 C L 09/26/19 08:20 Pulse 61 09/26/19 08:05 Resp 12 09/26/19 09:05 BP 136/69 09/26/19 09:05 Pulse Ox 93 L 09/26/19 09:05 Orthostatic Blood Pressure [ 158/83 Standing] Orthostatic Blood Pressure [ 142/82 Sitting] Orthostatic Blood Pressure [ 136/76 Supine] Weight - Most Recent: 56.3 kg I&O - Last 24 Hours: Intake & Output 09/25/19 09/26/19 09/26/19 22:59 06:59 14:59 Intake Total 611 1036 400 Output Total 800 600 300 Balance -189 436 100 Lab Results Last 24 Hours: Laboratory Results - last 24 hr 09/25/19 09/25/19 09/25/19 Range/Units 03:05 10:28 14:00 WBC (4.5-11.0) K/uL RBC (3.30-5.50) M/uL Hgb 12.6 (12.0-15.0) g/dL Hct (36.0-48.0) % MCV (80-98) fL MCH (27-31) pg MCHC (32-36) % Plt Count (150-400) K/uL Sodium (140-148) mmol/L Potassium (3.6-5.2) mmol/L Chloride (100-108) mmol/L Carbon Dioxide (21-32) mmol/L Anion Gap (5.0-14.0) mmol/L BUN (7-18) mg/dL Creatinine (0.6-1.0) mg/dL Est Cr Clr Drug Dosing mL/min Estimated GFR (MDRD) (>60) Glucose (74-106) mg/dL Calcium (8.5-10.1) mg/dL Urine Color Yellow (YELLOW) Urine Appearance Clear (CLEAR) Urine pH 7.0 (5.0-8.0) Ur Specific [place] 1.020 (1.008-1.030) Urine Protein Negative (NEGATIVE) mg/dL Urine Glucose (UA) Negative (NEGATIVE) mg/dL Urine Ketones Negative (NEGATIVE) mg/dL Urine Occult Blood Moderate H (NEGATIVE) Urine Nitrite Negative (NEGATIVE) Urine Bilirubin Negative (NEGATIVE) Urine Urobilinogen 0.2 (0.2-1.0) EU/dL Ur Leukocyte Esterase Negative (NEGATIVE) Urine RBC 5-10 H (0-5) Urine WBC Not seen (0-5) Ur Epithelial Cells Not seen Amorphous Sediment Rare Urine Bacteria Rare Urine Mucus Not seen Blood Type A POSITIVE Gel Antibody Screen Negative Crossmatch See Detail 09/26/19 09/26/19 Range/Units 04:08 04:08 WBC 7.0 (4.5-11.0) K/uL RBC 3.96 (3.30-5.50) M/uL Hgb 11.9 L (12.0-15.0) g/dL Hct 37.7 (36.0-48.0) % MCV 95 (80-98) fL MCH 30 (27-31) pg MCHC 32 (32-36) % Plt Count 199 (150-400) K/uL Sodium 141 (140-148) mmol/L Potassium 4.1 (3.6-5.2) mmol/L Chloride 107 (100-108) mmol/L Carbon Dioxide 27 (21-32) mmol/L Anion Gap 7.5 (5.0-14.0) mmol/L BUN 17 (7-18) mg/dL Creatinine 0.7 (0.6-1.0) mg/dL Est Cr Clr Drug Dosing 46.87 mL/min Estimated GFR (MDRD) > 60 (>60) Glucose 106 (74-106) mg/dL Calcium 8.0 L (8.5-10.1) mg/dL Urine Color (YELLOW) Urine Appearance (CLEAR) Urine pH (5.0-8.0) Ur Specific [place] (1.008-1.030) Urine Protein (NEGATIVE) mg/dL Urine Glucose (UA) (NEGATIVE) mg/dL Urine Ketones (NEGATIVE) mg/dL Urine Occult Blood (NEGATIVE) Urine Nitrite (NEGATIVE) Urine Bilirubin (NEGATIVE) Urine Urobilinogen (0.2-1.0) EU/dL Ur Leukocyte Esterase (NEGATIVE) Urine RBC (0-5) Urine WBC (0-5) Ur Epithelial Cells Amorphous Sediment Urine Bacteria Urine Mucus Blood Type Gel Antibody Screen Crossmatch [place] Results Last 24 Hours: Microbiology 09/25/19 05:03 Stool Occult Blood (DELL) - Final Stool / Feces Med Orders - Current: Current Medications Acetaminophen (Tylenol) 650 mg PO Q4H PRN PRN Reason: Pain (Mild 1-3)/fever Hydrocodone Bitart/Acetaminophen ([place] 325-5 Mg) 1 tab PO Q6H PRN PRN Reason: Pain (moderate 4-6) Last Admin: 09/25/19 21:43 Dose: 1 tab Albuterol (Proventil Neb Soln) 2.5 mg NEB Q4H PRN PRN Reason: Shortness Of Breath/wheezing Last Admin: 09/25/19 08:37 Dose: 2.5 mg Albuterol/Ipratropium (Duoneb 3.0-0.5 Mg/3 Ml) 3 ml NEB QIDRT [facility] Last Admin: 09/26/19 06:58 Dose: 3 ml Guaifenesin (Mucinex) 600 mg PO BID PRN PRN Reason: Congestion Pantoprazole Sodium 80 mg/ (Sodium Chloride) 100 mls @ 200 mls/hr IV .BOLUS [facility] Last Admin: 09/25/19 03:46 Dose: 200 mls/hr Sodium Chloride (Normal Saline) 1,000 mls @ 75 mls/hr IV ASDIRECTED [facility] Last Admin: 09/26/19 07:58 Dose: 75 mls/hr Ketotifen Fumarate (Ketotifen 0.025% Ophth Soln) 0 ml EYEBOTH QID [facility] Last Admin: 09/26/19 09:13 Dose: 2 drop Lorazepam (Ativan) 0.5 mg IVPUSH Q4H PRN PRN Reason: Nausea/Vomiting Magnesium Citrate (Citrate Of Magnesia) 592 ml PO Q2H [facility] Stop: 09/26/19 14:01 Magnesium Hydroxide (Milk Of Magnesia) 30 ml PO Q12H PRN PRN Reason: Constipation Melatonin (Melatonin) 9 mg PO BEDTIME [facility] Last Admin: 09/25/19 21:27 Dose: 9 mg Montelukast Sodium (Singulair) 10 mg PO BEDTIME [facility] Last Admin: 09/25/19 21:28 Dose: 10 mg Ondansetron HCl (Zofran Odt) 4 mg PO Q6H PRN PRN Reason: Nausea able to take PO Last Admin: 09/25/19 20:21 Dose: 4 mg Ondansetron HCl (Zofran) 4 mg IV Q6H PRN PRN Reason: Nausea/Vomiting Pantoprazole Sodium (Protonix) 40 mg PO ACBREAKFAST [facility] Last Admin: 09/26/19 09:13 Dose: 40 mg Rosuvastatin Calcium (Crestor) 20 mg PO DAILY [facility] Last Admin: 09/26/19 09:13 Dose: 20 mg Fluticasone/Salmeterol (Fluticasone-Salmeterol 232-14 Mcg Powder Inha) 1 puff INH BIDRT [facility] Last Admin: 09/26/19 06:58 Dose: 1 puff Senna/Docusate Sodium (Senna Plus) 1 tab PO BID PRN PRN Reason: Constipation Tizanidine HCl (Zanaflex) 4 mg PO BEDTIME PRN PRN Reason: Muscle Spasm Discontinued Medications Bisacodyl (Dulcolax) 10 mg PO ONETIME ONE Stop: 09/25/19 14:01 Last Admin: 09/25/19 13:06 Dose: 10 mg Fentanyl (Sublimaze) Confirm Administered Dose 100 mcg .ROUTE .STK-MED ONE Stop: 09/26/19 07:22 Hydromorphone HCl (Dilaudid) 0.5 mg IVPUSH ONETIME ONE Stop: 09/25/19 03:21 Last Admin: 09/25/19 03:26 Dose: 0.5 mg Sodium Chloride (Normal Saline) 1,000 mls @ 500 mls/hr IV ASDIRECTED [facility] Last Admin: 09/25/19 03:30 Dose: 500 mls/hr Sodium Chloride (Normal Saline) 74 mls @ 3 mls/sec IV ASDIRECTED [facility] Last Admin: 09/25/19 04:42 Dose: 3 mls/sec Iopamidol (Isovue-300 (61%)) 85 ml IV . DIRECTED ONE Stop: 09/25/19 04:22 Last Admin: 09/25/19 04:42 Dose: 85 ml Polyethylene Glycol (Miralax) 238 gm PO ONETIME ONE Stop: 09/25/19 14:01 Last Admin: 09/25/19 13:06 Dose: 238 gm Propofol (Diprivan 20 Ml) Confirm Administered Dose 200 mg .ROUTE .STK-MED ONE Stop: 09/26/19 07:22 - Exam Quality Assessment: Supplemental Oxygen General: Alert, Oriented, Cooperative, No Acute Distress Neck: Supple Lungs: Normal Respiratory Effort, Wheezing (rare mid to end exp wheeze ) Cardiovascular: Regular Rate, Regular Rhythm GI/Abdominal Exam: Soft, No Distention Extremities: No Pedal Edema Psy/Mental Status: Alert, Normal Affect Sepsis Event Note - Evaluation Sepsis Screening Result: No Definite Risk - Focused Exam Vital Signs: Vital Signs Temp Temp Pulse Resp BP Pulse Ox 09/26/19 09:05 12 136/69 93 L 09/26/19 08:50 16 121/57 L 92 L 09/26/19 08:35 16 113/59 L 95 09/26/19 08:20 35.7 C L 15 127/54 L 95 09/26/19 08:05 36.5 C 61 16 116/60 95 09/26/19 08:00 62 14 94/50 L 95 09/26/19 07:55 64 12 96/54 L 96 09/26/19 07:50 62 10 L 83/45 L 98 09/26/19 07:45 37.2 C 62 10 L 82/42 L 98 09/26/19 06:58 62 09/26/19 06:00 64 19 131/50 L 94 L 09/26/19 04:00 36.1 C 63 18 142/60 H 92 L 09/26/19 02:00 62 15 139/65 95 09/26/19 00:00 36.7 C 69 16 148/60 H 96 09/25/19 22:00 67 18 141/60 H 93 L Date Exam was Performed: 09/26/19 Time Exam was Performed: 11:26 - Problem List & Annotations (1) Gastrointestinal bleeding, lower SNOMED Code(s): 86573928 Code(s): K92.2 - GASTROINTESTINAL HEMORRHAGE, UNSPECIFIED Status: Acute Current Visit: Yes (2) COPD, Moderate chronic obstructive pulmonary disease SNOMED Code(s): 144686405 Code(s): J44.9 - CHRONIC OBSTRUCTIVE PULMONARY DISEASE, UNSPECIFIED Status : Chronic Priority: Medium Current Visit: No (3) Pulmonary nodule, left SNOMED Code(s): 579500652 Code(s): R91.1 - SOLITARY PULMONARY NODULE Status: Chronic Current Visit : Yes (4) Adrenal nodule SNOMED Code(s): 728152943 Code(s): E27.8 - OTHER SPECIFIED DISORDERS OF ADRENAL GLAND Status: Chronic Current Visit: Yes (5) Abdominal aortic aneurysm (AAA) greater than 5.0 cm in diameter in female SNOMED Code(s): 559498514 Code(s): I71.4 - ABDOMINAL AORTIC ANEURYSM, WITHOUT RUPTURE Status: Chronic Current Visit: Yes - Problem List Review Problem List Initiated/Reviewed/Updated: Yes - My Orders Last 24 Hours: My Active Orders 09/25/19 09:00 Fluticasone/Salmeterol [Fluticasone-Salmeterol 232-14 MCG Powder Inha] 1 puff INH BIDRT Pantoprazole [ProTONIX] 40 mg PO ACBREAKFAST Rosuvastatin [Crestor] 20 mg PO DAILY 09/25/19 11:00 Albuterol/Ipratropium [DuoNeb 3.0-0.5 MG/3 ML] 3 ml NEB QIDRT Ketotifen [Ketotifen 0.025% Ophth Soln] 0 ml EYEBOTH QID 09/25/19 21:00 Melatonin 9 mg PO BEDTIME Montelukast [Singulair] 10 mg PO BEDTIME 09/25/19 Dinner Nothing per Oral After Midnight Diet [DIET] - Plan Plan:: ASSESSMENT AND PLAN - Acute gastrointestinal hemorrhage, likely lower-bleeding seems to have stabilized and hemoglobin did not drop significantly. Colonoscopy prep was very poor overnight. More aggressive colonoscopy prep was ordered this morning by Dr. Draper. Plan is for colonoscopy tomorrow. EGD fairly unremarkable with no obvious source for bleeding. -Type and screen 2 units -Repeat hemoglobin in the morning -Discontinue cardiac monitoring -Saline lock IV -Surgical consultation for colonoscopy in the morning -Colon prep again this afternoon COPD-oxygen dependent at night. Mild wheezing this morning but otherwise stable. -Scheduled and as needed nebulizers -Oxygen as needed 5.2 cm AAA-found incidentally on CT scan and will need follow-up testing as an outpatient. Left lower lobe pulmonary nodule-recommend repeat CT scan in 3 months Left adrenal nodule-noted on CT scan. Outpatient CT or MRI was recommended. Maintenance issues - - DVT prophylaxis -mechanical with active hemorrhage - GI prophylaxis -PPI - Nutrition -clear liquids today, nothing by mouth after midnight Disposition -I would anticipate discharge home after the hospital stay Primary care physician -Dr Maurice Marrero M.D.
[2019-09-26] MEDS ORDERED: Bisacodyl 5 MG Tab PO ONE ×2 (14:24→17:00)
[2019-09-26] MEDS: Magnesium Citrate Solution 296 ML Bottle PO SCH ×3 (14:31→21:29)
[2019-09-26] MEDS ORDERED: Bisacodyl 10 MG Supp RECTAL PRN (19:49)
[2019-09-26] MEDS: Melatonin 3 MG Tab PO SCH (21:26)
[2019-09-26] MEDS: Montelukast 10 MG Tab PO SCH (21:26)
[2019-09-26] MEDS: Dextrose 5%-Lactated Ringers 1,000 ML IV SCH (21:27)
[2019-09-27] MEDS: Ketotifen 0.025% Ophth Soln 5 ML Bottle EYEBOTH SCH ×2 (05:54→09:30)
[2019-09-27] MEDS: Albuterol/Ipratropium 3.0-0.5 MG/3 ML Neb Soln NEB SCH ×2 (07:18→11:01)
[2019-09-27] MEDS: Fluticasone-Salmeterol 232-14 MCG Powder Inhalent INH SCH (07:18)
[2019-09-27] MEDS ORDERED: fentaNYL 100 MCG/2 ML SDV ONE (07:24)
[2019-09-27] MEDS ORDERED: Propofol 200 MG/20 ML SDV ONE (07:25)
[2019-09-27] MEDS ORDERED: Midazolam 1 MG/ML 2 ML SDV ONE (07:25)
--- NOTE | 2019-09-27 07:28 | PN ---
DATE OF SERVICE: 09/27/2019 SUBJECTIVE: Rosaura had another colon prep. She will be having a repeat colon this morning. Temp max 99 past 24 hours, otherwise vital signs have been stable. Oral intake 1700. Urine output 300 recorded plus she has had bowel movements with urination, 7 total bowel movements. They are still dark in color and 100 mL emesis. Remainder of review of systems negative for any pertinent positives and negatives. OBJECTIVE: GENERAL: Rosaura Domingo is an 84-year-old female. VITAL SIGNS: TPR at 0300; 99, 71, 16. Blood pressure 129/61. HEENT: Negative. NECK: Supple. HEART: Regular rate and rhythm. LUNGS: Clear. ABDOMEN: Soft, nontender. EXTREMITIES: Negative. ASSESSMENT: 1. Lower gastrointestinal bleed. 2. Questionable diverticular bleed and cancer metastasis. PLAN: Colonoscopy to be repeated today. K-Phos will be ordered after colonoscopy along with any other orders. We will evaluate p.r.n. or in a.m. Lisa Gimenez PA-C /[id number]
[2019-09-27] MEDS: Dextrose 5%-Lactated Ringers 1,000 ML IV SCH (07:44)
[2019-09-27] MEDS: Pantoprazole 40 MG Tab.CR PO SCH (07:46)
[2019-09-27] MEDS: Rosuvastatin 10 MG Tab PO SCH (09:00)
--- NOTE | 2019-09-27 10:10 | CR ---
CHEST: 2 view CLINICAL HISTORY:SOB COMPARISON:2017 FINDINGS: The heart size, pulmonary vascularity and hilar structures are normal. No infiltrate effusion or pneumothorax is seen. There are atherosclerotic changes in the aorta.. There is a hiatal hernia. There is a compression deformity of a lower thoracic vertebrae similar to prior study. Lungs are hyperaerated IMPRESSION: No acute cardiopulmonary process Hyperaeration
--- NOTE | 2019-09-27 13:46 | PCM.DCSUM1 ---
Discharge Summary - Hospital Course Brief History: Ms. Domingo is an 84-year-old woman who was admitted through the emergency department for further evaluation and management of hematochezia. - Discharge Data Discharge Date: 09/27/19 Discharge Disposition: Home, Self-Care 01 Condition: Fair - Referral to Home Health Primary Care Physician: Maurice De La Rosa MD - Discharge Diagnosis/Problem(s) (1) Gastrointestinal bleeding, lower SNOMED Code(s): 56599525 ICD Code: K92.2 - GASTROINTESTINAL HEMORRHAGE, UNSPECIFIED Status: Acute Current Visit: Yes (2) COPD, Moderate chronic obstructive pulmonary disease SNOMED Code(s): 608871661 ICD Code: J44.9 - CHRONIC OBSTRUCTIVE PULMONARY DISEASE, UNSPECIFIED Status : Chronic Priority: Medium Current Visit: No - Patient Summary/Data Consults: Consultations 09/25/19 08:00 Consult to Physician [CONS] Routine Consulting Provider: Hunter Draperesy Call Completed to Consulting Physician: Yes Reason for Consult: gi bleed Person Notified: POTTS Date Notified: 09/25/19 Special Instructions: EGD and colonoscopy in am Hospital Course: Ms. Domingo presented to the emergency room with bright red blood per rectum. She reports that she was in her usual state of health with no significant changes. She woke up early in the morning thinking she had to urinate. When she woke up she noted that her nightgown was all wet but when she turned the light on it was covered in blood. She went to the bathroom thinking she was going to have a bowel movement and passed a large amount of red blood. She has not had large additional bloody bowel movements since that time but has passed small amounts of blood since that time. She has not had any abdominal pain. She has not had any fevers or chills. No nausea or hematemesis. She had not noted a change in bowel habits prior to developing the bleeding. She does not feel short of breath. She does not feel weak or dizzy. She does have a history of both bleeding peptic ulcers as well as an episode of suspected lower GI bleeding about 6 years ago. No definite source was found at that time. Work- up in the emergency room was fairly unremarkable. Her hemoglobin was 13. Her vital signs are stable. She is not in any distress. Chest x-ray was clear. CT scan of the abdomen and pelvis did not show an acute source of bleeding but did note a variety of things that will need outpatient follow-up. She will be admitted to the hospital for management of a lower gastrointestinal hemorrhage. Serial hemoglobins were obtained after admission and only decreased modestly, consistent with dilution from IV fluids. On the day after admission she was seen and evaluated by Dr. Draper, EGD was performed which showed no obvious source of blood loss. She also received colonoscopy prep but had poor results. Prep was repeated and on the day of discharge she underwent colonoscopy, prep unfortunately was incomplete. She was noted to have some diverticuli but no other significant lesions or masses to explain her acute bleeding. She was feeling well and tolerated a soft diet prior to discharge. Activity will be as tolerated and she will remain on her usual diet. Follow-up appointment will be scheduled with Dr. De La Rosa within 1 week, hemoglobin level should be obtained at the time of follow-up appointment. - Patient Instructions Diet: Usual Diet as Tolerated Activity: As Tolerated Other/Special Instructions: Please schedule follow-up appointment with primary care provider within 1 week. Hemoglobin level should be obtained at the time of follow-up appointment. - Discharge Plan *PRESCRIPTION DRUG MONITORING PROGRAM REVIEWED*: Not Applicable *COPY OF PRESCRIPTION DRUG MONITORING REPORT IN PATIENT ELIZABET: Not Applicable Home Medications: Home Meds Nitroglycerin [Nitrostat] 0.4 mg SL ASDIRECTED PRN 08/04/13 [History] Rosuvastatin [Crestor] 20 mg PO DAILY 08/11/14 [History] Acetaminophen [Tylenol] 325 mg PO Q6H PRN 07/11/15 [History] Bacitracin [Bacitracin Oint] 1 applic TOP BID 07/11/15 [History] Trolamine Salicylate/Aloe Vera [Aspercreme 10% Cream] 1 applic TP ASDIRECTED PRN 07/11/15 [History] diphenhydrAMINE [Benadryl] 50 mg PO Q6H PRN 07/11/15 [History] Pantoprazole [ProTONIX] 40 mg PO DAILY #30 tab.cr 01/11/16 [Rx] Albuterol/Ipratropium [Combivent Respimat] 1 dose INH ASDIRECTED 01/29/19 [ History] Azelastine [Optivar 0.05% Ophth Soln] 2 drop EYEBOTH QID 01/29/19 [History] Montelukast [Singulair] 1 tab PO BEDTIME 01/29/19 [History] tiZANidine [Zanaflex] 1 tab PO BEDTIME PRN 01/29/19 [History] Acetaminophen/HYDROcodone [Tiona 325-5 MG] 1 tab PO Q6H PRN 09/25/19 [History] Ammonium Lactate [Lac-Hydrin 12% Crm] 1 applic TOP BID PRN 09/25/19 [History] Calcium Carbonate/Vitamin D3 [Calcium 500-Vit D3 125 Caplet] 1 tab PO DAILY 05/05 [History] Cholecalciferol (Vitamin D3) [Vitamin D3] 2,000 unit PO DAILY 09/25/19 [History] Cyanocobalamin (Vitamin B-12) [B-12] 1,000 mcg PO DAILY 09/25/19 [History] Diclofenac Sodium [Voltaren] 1 tab PO DAILY PRN 09/25/19 [History] Fluticasone Propion/Salmeterol [Fluticasone-Salmeterol 232-14] 1 puff INH BID [History] Magnesium Oxide [Magnesium] 500 mg PO DAILY 09/25/19 [History] Melatonin 1 tab PO BEDTIME PRN 09/25/19 [History] Teriparatide [Forteo] 0.08 ml SQ DAILY 09/25/19 [History] diphenhydrAMINE HCl [Banophen] 2 tab PO Q6HR PRN 09/25/19 [History] guaiFENesin [Mucinex] 600 mg PO BID PRN 09/25/19 [History] Referrals: Maurice De La Rosa MD [Primary Care Provider] - 10/01/19 1:30 pm (have hemoglobin drawn at this appointment) - Discharge Summary/Plan Comment DC Time >30 min.: No - Patient Data Vitals - Most Recent: Last Vital Signs Temp 98.0 F 09/27/19 09:55 Pulse 62 09/27/19 11:02 Resp 14 09/27/19 09:55 BP 140/65 09/27/19 09:55 Pulse Ox 94 L 09/27/19 11:02 Orthostatic Blood Pressure [ 158/83 Standing] Orthostatic Blood Pressure [ 142/82 Sitting] Orthostatic Blood Pressure [ 136/76 Supine] Weight - Most Recent: 124 lb 1.924 oz I&O - Last 24 hours: Intake & Output 09/26/19 09/27/19 09/27/19 22:59 06:59 14:59 Intake Total 700 400 290 Output Total 100 250 Balance 600 400 40 Lab Results - Last 24 hrs: Laboratory Results - last 24 hr 09/27/19 09/27/19 Range/Units 04:00 04:00 WBC 8.3 (4.5-11.0) K/uL RBC 3.98 (3.30-5.50) M/uL Hgb 12.2 (12.0-15.0) g/dL Hct 37.9 (36.0-48.0) % MCV 95 (80-98) fL MCH 31 (27-31) pg MCHC 32 (32-36) % Plt Count 199 (150-400) K/uL Sodium 140 (140-148) mmol/L Potassium 3.8 (3.6-5.2) mmol/L Chloride 106 (100-108) mmol/L Carbon Dioxide 27 (21-32) mmol/L Anion Gap 7.5 (5.0-14.0) mmol/L BUN 12 (7-18) mg/dL Creatinine 0.6 (0.6-1.0) mg/dL Est Cr Clr Drug Dosing 54.68 mL/min Estimated GFR (MDRD) > 60 (>60) Glucose 127 H (74-106) mg/dL Calcium 8.4 L (8.5-10.1) mg/dL Phosphorus 2.3 L (2.5-4.9) mg/dL Magnesium 2.1 (1.8-2.4) mg/dL Total Bilirubin 0.7 D (0.2-1.0) mg/dL AST 15 (15-37) U/L ALT 19 (12-78) U/L Alkaline Phosphatase 82 (46-116) U/L NT-Pro-B Natriuret Pep 435 (5-450) pg/mL Total Protein 5.7 L (6.4-8.2) g/dL Albumin 2.9 L (3.4-5.0) g/dL Globulin 2.8 (2.3-3.5) g/dL Albumin/Globulin Ratio 1.0 L (1.2-2.2) GEE Results - Last 24 hrs: Microbiology 09/26/19 07:37 CLOtest - Final Stomach NEGATIVE CLOTEST REFERENCE RANGE: NEGATIVE Med Orders - Current: Current Medications Acetaminophen (Tylenol) 650 mg PO Q4H PRN PRN Reason: Pain (Mild 1-3)/fever Hydrocodone Bitart/Acetaminophen (Tiona 325-5 Mg) 1 tab PO Q6H PRN PRN Reason: Pain (moderate 4-6) Last Admin: 09/25/19 21:43 Dose: 1 tab Albuterol (Proventil Neb Soln) 2.5 mg NEB Q4H PRN PRN Reason: Shortness Of Breath/wheezing Last Admin: 09/25/19 08:37 Dose: 2.5 mg Albuterol/Ipratropium (Duoneb 3.0-0.5 Mg/3 Ml) 3 ml NEB QIDRT [facility] Last Admin: 09/27/19 11:01 Dose: 3 ml Bisacodyl (Dulcolax) 10 mg RECTAL DAILY PRN PRN Reason: Constipation Last Admin: 09/26/19 20:10 Dose: 10 mg Guaifenesin (Mucinex) 600 mg PO BID PRN PRN Reason: Congestion Ketotifen Fumarate (Ketotifen 0.025% Ophth Soln) 0 ml EYEBOTH QID [facility] Last Admin: 09/27/19 09:30 Dose: Not Given Lorazepam (Ativan) 0.5 mg IVPUSH Q4H PRN PRN Reason: Nausea/Vomiting Magnesium Hydroxide (Milk Of Magnesia) 30 ml PO Q12H PRN PRN Reason: Constipation Melatonin (Melatonin) 9 mg PO BEDTIME [facility] Last Admin: 09/26/19 21:26 Dose: 9 mg Montelukast Sodium (Singulair) 10 mg PO BEDTIME [facility] Last Admin: 09/26/19 21:26 Dose: 10 mg Ondansetron HCl (Zofran Odt) 4 mg PO Q6H PRN PRN Reason: Nausea able to take PO Last Admin: 09/25/19 20:21 Dose: 4 mg Ondansetron HCl (Zofran) 4 mg IV Q6H PRN PRN Reason: Nausea/Vomiting Last Admin: 09/26/19 21:36 Dose: 4 mg Pantoprazole Sodium (Protonix) 40 mg PO ACBREAKFAST [facility] Last Admin: 09/27/19 07:46 Dose: Not Given Rosuvastatin Calcium (Crestor) 20 mg PO DAILY [facility] Last Admin: 09/27/19 09:00 Dose: Not Given Fluticasone/Salmeterol (Fluticasone-Salmeterol 232-14 Mcg Powder Inha) 1 puff INH BIDRT [facility] Last Admin: 09/27/19 07:18 Dose: 1 puff Senna/Docusate Sodium (Senna Plus) 1 tab PO BID PRN PRN Reason: Constipation Tizanidine HCl (Zanaflex) 4 mg PO BEDTIME PRN PRN Reason: Muscle Spasm Discontinued Medications Bisacodyl (Dulcolax) 10 mg PO ONETIME ONE Stop: 09/25/19 14:01 Last Admin: 09/25/19 13:06 Dose: 10 mg Bisacodyl (Dulcolax) 10 mg PO ONETIME ONE Stop: 09/26/19 14:25 Last Admin: 09/26/19 17:34 Dose: Not Given Bisacodyl (Dulcolax) 10 mg PO ONETIME ONE Stop: 09/26/19 17:01 Last Admin: 09/26/19 17:35 Dose: 10 mg Fentanyl (Sublimaze) Confirm Administered Dose 100 mcg .ROUTE .STK-MED ONE Stop: 09/26/19 07:22 Fentanyl (Sublimaze) Confirm Administered Dose 100 mcg .ROUTE .STK-MED ONE Stop: 09/27/19 07:25 Hydromorphone HCl (Dilaudid) 0.5 mg IVPUSH ONETIME ONE Stop: 09/25/19 03:21 Last Admin: 09/25/19 03:26 Dose: 0.5 mg Sodium Chloride (Normal Saline) 1,000 mls @ 500 mls/hr IV ASDIRECTED [facility] Last Admin: 09/25/19 03:30 Dose: 500 mls/hr Pantoprazole Sodium 80 mg/ (Sodium Chloride) 100 mls @ 200 mls/hr IV .BOLUS [facility] Last Admin: 09/25/19 03:46 Dose: 200 mls/hr Sodium Chloride (Normal Saline) 74 mls @ 3 mls/sec IV ASDIRECTED [facility] Last Admin: 09/25/19 04:42 Dose: 3 mls/sec Sodium Chloride (Normal Saline) 1,000 mls @ 75 mls/hr IV ASDIRECTED [facility] Last Admin: 09/26/19 07:58 Dose: 75 mls/hr Dextrose/Lactated Ringer's (Dextrose 5%-Lactated Ringers) 1,000 mls @ 100 mls/ hr IV ASDIRECTED [facility] Last Admin: 09/27/19 07:44 Dose: 100 mls/hr Iopamidol (Isovue-300 (61%)) 85 ml IV . DIRECTED ONE Stop: 09/25/19 04:22 Last Admin: 09/25/19 04:42 Dose: 85 ml Magnesium Citrate (Citrate Of Magnesia) 592 ml PO Q2H [facility] Stop: 09/26/19 14:01 Last Admin: 09/26/19 21:29 Dose: 592 ml Midazolam HCl (Versed 1 Mg/Ml) Confirm Administered Dose 2 mg .ROUTE .STK-MED ONE Stop: 09/27/19 07:26 Polyethylene Glycol (Miralax) 238 gm PO ONETIME ONE Stop: 09/25/19 14:01 Last Admin: 09/25/19 13:06 Dose: 238 gm Propofol (Diprivan 20 Ml) Confirm Administered Dose 200 mg .ROUTE .STK-MED ONE Stop: 09/26/19 07:22 Propofol (Diprivan 20 Ml) Confirm Administered Dose 200 mg .ROUTE .STK-MED ONE Stop: 09/27/19 07:26 - Exam General: Reports: Alert, Oriented, Cooperative, No Acute Distress Lungs: Reports: Normal Respiratory Effort, Decreased Breath Sounds, Wheezing Cardiovascular: Reports: Regular Rate, Regular Rhythm, No Murmurs GI/Abdominal Exam: Soft, Non-Tender, No Organomegaly, No Distention *Q Meaningful Use (DIS) - VTE *Q VTE Pharmacological Contraindications *Q: Active Hemorrhage
[2019-09-27 14:10] VITALS: BP 151/53; PULSE 64
--- NOTE | 2019-09-29 09:50 | PN ---
DATE OF SERVICE: 09/26/2019 The patient had upper endoscopy which showed a hiatal hernia and esophagitis and mild antral gastritis, but these were not likely to be bleeding sources. The patient's prep was extremely poor which showed a large amount of old blood but no active red blood present to 15 cm. Scope could not be passed proximal to that. Plan will be to repeat the MiraLax and some magnesium citrate orally and then proceed with an enema preprocedure tomorrow and then attempt a full colonoscopy tomorrow. Hunter Draper MD /[id number]
--- NOTE | 2019-09-29 09:50 | PROC ---
DATE OF PROCEDURE: 09/26/2019 SURGEON: Hunter Draper MD PREOPERATIVE DIAGNOSIS: Probable lower gastrointestinal bleeding. POSTOPERATIVE DIAGNOSES: 1. Upper GI endoscopy showing moderate hiatal hernia with scattered erosions in the esophagus and mild antral gastritis (the likely source of significant bleeding identified). 2. Flexible sigmoidoscopy (to 15 cm) showing a large amount of old blood and unable to pass the scope more proximally due to the poor prep. OPERATIVE PROCEDURES: 1. Esophagogastroduodenoscopy with antral biopsies for CLOtest. 2. Flexible sigmoidoscopy. ANESTHESIA: IV sedation. INDICATIONS FOR PROCEDURE: This is an 84-year-old presenting with episodes of a large amount of fairly bright red blood per rectum. She had a similar episode sometime ago and the patient is undergoing upper GI endoscopy with biopsies as indicated as well as flexible colonoscopy. Per report, her colon prep has not been very successful and we will try to see what we can see in terms of rectum and colon and any chance we might be able to identify more specific pathology despite the poor prep. Potential risks including bleeding and perforation were discussed, and the patient wishes to proceed. DETAILS OF PROCEDURE: The patient was taken to the operating room and placed in a left lateral decubitus position. IV sedation was administered, after which the upper GI endoscope was passed orally through the length of the esophagus, into the stomach with retroflexion view of the fundus, and thereafter through the pyloric channel into the duodenum. The upper endoscopy showed a moderate-sized hiatal hernia with some scattered erosions in the distal esophagus. These were fairly minor and these likely do present with bleeding like the patient had earlier, especially in view minimal change in her hemoglobin. Apart from that, there was some patchy antral gastritis. The pyloric channel and the duodenum to the junction of 3rd and 4th portions were otherwise unremarkable. Biopsies were obtained from the antrum and sent for CLOtest for H pylori. Minimal bleeding from the biopsy site was seen and the procedure was then concluded. Attention was then taken to the colon and rectum. Initial digital rectal exam was performed and was unremarkable other than there being a large amount of old blood present. Flexible scope was then passed to 15 cm. Because of the poor prep, it could not be passed more proximal to that, and to that level, however, there were no specific identifiable areas of pathology. Scope was then withdrawn and the procedure was then concluded. The patient will be re-prepped and we will try a full colonoscopy tomorrow. Hunter Draper MD /[id number]
--- NOTE | 2019-09-29 14:28 | OR ---
DATE OF PROCEDURE: 09/27/2019 SURGEON: Hunter Draper MD PREOPERATIVE DIAGNOSIS: Recent lower gastrointestinal bleeding. POSTOPERATIVE DIAGNOSIS: Recent lower gastrointestinal bleeding likely secondary to left colonic diverticulosis. OPERATIVE PROCEDURE: Flexible colonoscopy. ANESTHESIA: IV sedation. INDICATION FOR PROCEDURE: The patient presented with a picture suggestive of lower GI bleeding. Initial prep yesterday was inadequate. Today's prep appears probably to be satisfactory, at least getting a good internal visualization of the colon and rectum. Our plan is to proceed with colonoscopy with biopsies and polypectomy as indicated. Potential risks including bleeding and perforation were discussed, and the patient wishes to proceed. DETAILS OF PROCEDURE: The patient was taken to the operating room and placed in a left lateral decubitus position. IV sedation was administered after which the initial digital rectal exam was performed, it was unremarkable. The colonoscope was then passed into the rectum with retroflexion revealing uncomplicated hemorrhoidal columns. The prep today was still not very good, but adequate to visualize vast majority of the mucosal surfaces. Scope was eventually passed to the level what appeared to be the cecum, although landmarks were somewhat obscured by the stool. There was no blood or bleeding. The patient did have quite extensive left colonic diverticulosis with some observed to be diverticular disease in mid transverse and right colon. No active bleeding was seen and apart from that there were no polyps or other signs of pathology and no areas of colitis. The scope was then withdrawn and the above findings reconfirmed and the procedure then concluded. Agreed per the colonoscopy findings as well as her clinical history, this would almost certainly be a diverticular related bleed. Hunter Draper MD /[id number]
== END 2019-09-27 14:03 | disposition home or self-care (01) | DRG 379 ==
LOC: JP.ED 02:35 → JP.ICU 07:36 → JP.MS 09-26 10:46
PROVIDERS: ADMIT Internal Medicine; ATTEND Hospitalist
PROC: 0DJD8ZZ Inspection of Lower Intestinal Tract, Via Natural or Artificial Opening Endoscopic (ICD-10-PCS; principal; 2019-09-27)
DX: K92.2 Gastrointestinal hemorrhage, unspecified (principal); K57.31 Diverticulosis of large intestine without perforation or abscess with bleeding; J44.9 Chronic obstructive pulmonary disease, unspecified; H54.7 Unspecified visual loss; I11.0 Hypertensive heart disease with heart failure; I50.9 Heart failure, unspecified; E78.00 Pure hypercholesterolemia, unspecified; I25.2 Old myocardial infarction; Z86.010 Personal history of colon polyps; N28.9 Disorder of kidney and ureter, unspecified; K21.9 Gastro-esophageal reflux disease without esophagitis; M19.90 Unspecified osteoarthritis, unspecified site; M81.0 Age-related osteoporosis without current pathological fracture; E61.1 Iron deficiency; E05.90 Thyrotoxicosis, unspecified without thyrotoxic crisis or storm; Z85.850 Personal history of malignant neoplasm of thyroid; F17.200 Nicotine dependence, unspecified, uncomplicated; Z88.1 Allergy status to other antibiotic agents; Z98.49 Cataract extraction status, unspecified eye; Z90.49 Acquired absence of other specified parts of digestive tract; D50.9 Iron deficiency anemia, unspecified; F17.210 Nicotine dependence, cigarettes, uncomplicated; I71.4 Abdominal aortic aneurysm, without rupture; R22.9 Localized swelling, mass and lump, unspecified; Z87.11 Personal history of peptic ulcer disease; Z79.899 Other long term (current) drug therapy; Z88.0 Allergy status to penicillin; Z91.048 Other nonmedicinal substance allergy status; Z88.8 Allergy status to other drugs, medicaments and biological substances; Z91.040 Latex allergy status; Z91.09 Other allergy status, other than to drugs and biological substances
CPT/HCPCS: 36415; 71046 ×2; 74177; 80053; 82272; 83605; 84484; 85027; 85610; 86850; 86900; 86901; 86920; 86922; 93005; 93010; 96365; 96375; 99284; 99285; C9113; J1170; J7030; J7050 ×2; Q9967; 80048; 81001; 83735; 83880; 84100; 85018; 87081; 94640; A9270-GY; J2250; J2405; J2704; J3010; J7121; J7620-GY

== ENCOUNTER 2019-11-06 14:49 | Emergency (ER) | payer MEDICARE ==
[2019-11-06 15:13] VITALS: PULSE 69
[2019-11-06] MEDS ORDERED: Lisinopril 5 MG Tab PO ONE (15:46)
--- NOTE | 2019-11-06 15:46 | EDM.PDOC ---
ED HPI GENERAL MEDICAL PROBLEM - General Chief Complaint: General Stated Complaint: HIGH BP / BP CHECK Time Seen by Provider: 11/06/19 15:30 Source of Information: Reports: Patient History Limitations: Reports: No Limitations - History of Present Illness INITIAL COMMENTS - FREE TEXT/NARRATIVE: Rosaura presents today for blood pressure check and blood pressure medication per Dr. Anthony instruction from [place]. Rosaura does report headache which is mild at this time 07/26. She states she was in to see Dr. Anthony and her blood pressure was high. He told her to come to the emergency room for recheck of her blood pressure. She denies fever, chills, nausea, vomiting or other concerns. - Related Data Allergies Allergy/AdvReac Type Severity Reaction Status Date / Time Penicillins Allergy Intermediate Hives Verified 11/06/19 15:13 adhesive tape Allergy Cannot Verified 11/06/19 15:13 Remember atorvastatin [From Lipitor] Allergy Muscle Verified 11/06/19 15:13 Aches Bleach (Sodium Hypochlorite) Allergy Rash Verified 11/06/19 15:13 doxycycline Allergy Rash Verified 11/06/19 15:13 metronidazole Allergy Rash Verified 11/06/19 15:13 oxycodone Allergy Cannot Verified 11/06/19 15:13 Remember povidone-iodine Allergy Rash Verified 11/06/19 15:13 [From Betadine] soap [From Betadine] Allergy Rash Verified 11/06/19 15:13 latex Allergy Blisters Uncoded 11/06/19 15:13 Home Meds: Home Meds Nitroglycerin [Nitrostat] 0.4 mg SL ASDIRECTED PRN 08/04/13 [History] Rosuvastatin [Crestor] 20 mg PO DAILY 08/11/14 [History] Acetaminophen [Tylenol] 325 mg PO Q6H PRN 07/11/15 [History] Bacitracin [Bacitracin Oint] 1 applic TOP BID 07/11/15 [History] Trolamine Salicylate/Aloe Vera [Aspercreme 10% Cream] 1 applic TP ASDIRECTED PRN 07/11/15 [History] diphenhydrAMINE [Benadryl] 50 mg PO Q6H PRN 07/11/15 [History] Pantoprazole [ProTONIX] 40 mg PO DAILY #30 tab.cr 01/11/16 [Rx] Albuterol/Ipratropium [Combivent Respimat] 1 dose INH ASDIRECTED 01/29/19 [ History] Azelastine [Optivar 0.05% Ophth Soln] 2 drop EYEBOTH QID 01/29/19 [History] Montelukast [Singulair] 1 tab PO BEDTIME 01/29/19 [History] tiZANidine [Zanaflex] 1 tab PO BEDTIME PRN 01/29/19 [History] Acetaminophen/HYDROcodone [Barnard 325-5 MG] 1 tab PO Q6H PRN 09/25/19 [History] Ammonium Lactate [Lac-Hydrin 12% Crm] 1 applic TOP BID PRN 09/25/19 [History] Calcium Carbonate/Vitamin D3 [Calcium 500-Vit D3 125 Caplet] 1 tab PO DAILY 05/05 [History] Cholecalciferol (Vitamin D3) [Vitamin D3] 2,000 unit PO DAILY 09/25/19 [History] Cyanocobalamin (Vitamin B-12) [B-12] 1,000 mcg PO DAILY 09/25/19 [History] Diclofenac Sodium [Voltaren] 1 tab PO DAILY PRN 09/25/19 [History] Fluticasone Propion/Salmeterol [Fluticasone-Salmeterol 232-14] 1 puff INH BID [History] Magnesium Oxide [Magnesium] 500 mg PO DAILY 09/25/19 [History] Melatonin 1 tab PO BEDTIME PRN 09/25/19 [History] Teriparatide [Forteo] 0.08 ml SQ DAILY 09/25/19 [History] diphenhydrAMINE HCL [Banophen] 2 tab PO Q6HR PRN 09/25/19 [History] guaiFENesin [Mucinex] 600 mg PO BID PRN 09/25/19 [History] Past Medical History HEENT History: Reports: Cataract, Impaired Vision, Sinusitis, Other (See Below) Other HEENT History: detached retinas Cardiovascular History: Reports: Arrhythmia, Heart Failure, High Cholesterol, Hypertension, [place] Other Cardiovascular History: "fluid around the heart", CHF Respiratory History: Reports: COPD, SOB, Other (See Below) Gastrointestinal History: Reports: Colon Polyp, GERD, Other (See Below) Genitourinary History: Reports: Renal Disease 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 ANALYST 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: cervix stitch with 4 Musculoskeletal History: Reports: Fracture, Osteoarthritis, Osteoporosis, Other (See Below) Other Musculoskeletal History: degeneration of back Endocrine/Metabolic History: Reports: Hyperthyroidism Other Endocrine/Metabolic History: Patient tells me she's been diagnosed with thyroid cancer Hematologic History: Reports: Anemia, Blood Transfusion(s), Iron Deficiency Oncologic (Cancer) History: Reports: Metastatic, Thyroid Dermatologic History: Reports: Eczema, Psoriasis, Other (See Below) Other Dermatologic History: wound r lateral hand - Infectious Disease History Infectious Disease History: Reports: Chicken Pox, Measles, Mumps - Past Surgical History Head Surgeries/Procedures: Reports: None HEENT Surgical History: Reports: Cataract Surgery GI Surgical History: Reports: Appendectomy, Colonoscopy, EGD, Hernia Repair/ Other Female Surgical History: Reports: Section Endocrine Surgical History: Reports: Thyroid Biopsy Social & Family History - Family History Family Medical History: Noncontributory Oncologic: Reports: Colon - Tobacco Use Smoking Status *Q: Current Every Day Smoker Years of Tobacco use: 45 Packs/Tins Daily: 0.5 - Caffeine Use Caffeine Use: Reports: Coffee ED ROS GENERAL - Review of Systems Review Of Systems: See Below Constitutional: Reports: No Symptoms, Other (She reports she is here for blood pressure check. ) HEENT: Reports: No Symptoms, Other (she complains of mild headache 2/10) Respiratory: Reports: No Symptoms Cardiovascular: Reports: No Symptoms Endocrine: Reports: No Symptoms GI/Abdominal: Reports: No Symptoms Musculoskeletal: Reports: No Symptoms Skin: Reports: No Symptoms Neurological: Reports: No Symptoms Psychiatric: Reports: No Symptoms Hematologic/Lymphatic: Reports: No Symptoms Immunologic: Reports: No Symptoms ED EXAM, GENERAL - Physical Exam Exam: See Below Exam Limited By: No Limitations General Appearance: Alert, WD/WN, No Apparent Distress Eye Exam: Bilateral Eye: Normal Inspection, PERRL Throat/Mouth: Normal Inspection, Normal Lips, Normal Teeth, Normal Gums, Normal Oropharynx, Normal Voice, No Airway Compromise Head: Atraumatic, Normocephalic Neck: Normal Inspection, Supple, Non-Tender, Full Range of Motion. No: Lymphadenopathy (R) Respiratory/Chest: No Respiratory Distress, Normal Breath Sounds, No Accessory Muscle Use, Chest Non-Tender, Other (Expiratory wheezing ) Cardiovascular: Normal Peripheral Pulses, Regular Rate, Rhythm, No Edema, No Murmur, No Rub Neurological: Alert, Oriented, Normal Cognition, No Motor/Sensory Deficits Psychiatric: Normal Affect, Normal Mood Skin Exam: Warm, Dry, Intact, Normal Color, No Rash Course - Vital Signs Last Recorded V/S: Last Vital Signs Temp 36.2 C 11/06/19 15:12 Pulse 69 11/06/19 15:12 Resp 16 11/06/19 15:12 BP 158/85 H 11/06/19 16:32 Pulse Ox 97 11/06/19 15:12 - Orders/Labs/Meds Meds: Medications Discontinued Medications Generic Name Dose Route Start Last Admin Trade Name Mckenzie PRN Reason Stop Dose Admin Acetaminophen 650 mg 11/06/19 15:52 11/06/19 15:55 Tylenol PO 11/06/19 15:53 650 mg NOW ONE Administration Lisinopril 5 mg 11/06/19 15:46 11/06/19 15:55 Prinivil PO 11/06/19 15:47 5 mg ONETIME ONE Administration - Re-Assessments/Exams Free Text/Narrative Re-Assessment/Exam: 11/06/19 16:10 Patient denies complaints. Departure - Departure Time of Disposition: 16:42 Disposition: Home, Self-Care 01 Condition: Good Clinical Impression: Hypertension - Discharge Information *PRESCRIPTION DRUG MONITORING PROGRAM REVIEWED*: Not Applicable *COPY OF PRESCRIPTION DRUG MONITORING REPORT IN PATIENT ELIZABET: Not Applicable Instructions: Hypertension, Adult, [place] Referrals: PCP,None [Primary Care Provider] - Forms: ED Department Discharge Additional Instructions: Continue tobacco cessation. Take lisinopril 5mg by mouth daily. Follow up with Dr. De La Rosa in 7 to 10 days for a recheck and ongoing use of lisinopril. Wear boot to injured foot at all times to prevent re-injury or worsening of current injury. Take tylenol as needed for headache. Return as needed or for any worsening, issues or concerns. Sepsis Event Note - Evaluation Sepsis Screening Result: No Definite Risk - Focused Exam Vital Signs: Vital Signs Temp Pulse Resp BP BP Pulse Ox 11/06/19 16:32 158/85 H 11/06/19 15:55 157/76 H 11/06/19 15:12 36.2 C 69 16 157/76 H 97 Date Exam was Performed: 11/06/19 Time Exam was Performed: 16:42 - Assessment/Plan Assessment:: Hypertension Plan: Continue tobacco cessation. Take lisinopril 5mg by mouth daily. Follow up with Dr. De La Rosa in 7 to 10 days for a recheck and ongoing use of lisinopril. Wear boot to injured foot at all times to prevent re-injury or worsening of current injury. Take tylenol as needed for headache. Return as needed or for any worsening, issues or concerns.
[2019-11-06] MEDS ORDERED: Acetaminophen 325 MG Tab, 50 Tab Bulk Bottle PO ONE (15:48)
[2019-11-06] MEDS ORDERED: Acetaminophen 325 MG Tab PO ONE (15:52)
[2019-11-06 16:32] VITALS: BP 158/85
== END 2019-11-06 16:44 | disposition home or self-care (01) ==
LOC: JP.ED 14:49
DX: I11.0 Hypertensive heart disease with heart failure (principal); I50.9 Heart failure, unspecified; E78.00 Pure hypercholesterolemia, unspecified; I25.2 Old myocardial infarction; K21.9 Gastro-esophageal reflux disease without esophagitis; J44.9 Chronic obstructive pulmonary disease, unspecified; F17.210 Nicotine dependence, cigarettes, uncomplicated; Z88.0 Allergy status to penicillin; Z91.048 Other nonmedicinal substance allergy status; Z88.8 Allergy status to other drugs, medicaments and biological substances; Z79.899 Other long term (current) drug therapy
CPT/HCPCS: 99283; A9270

== ENCOUNTER 2022-12-31 13:08 | Emergency (ER) | payer MEDICARE ==
[2022-12-31 14:57] VITALS: BP 174/88; PULSE 65
[2022-12-31] MEDS ORDERED: Bacitracin Oint 1 GM U/D Packet TOP ONE (15:07)
== END 2022-12-31 15:20 | disposition home or self-care (01) ==
LOC: JP.ED 13:08
DX: S51.811A Laceration without foreign body of right forearm, initial encounter (principal); I10 Essential (primary) hypertension; I25.2 Old myocardial infarction; E78.00 Pure hypercholesterolemia, unspecified; K21.9 Gastro-esophageal reflux disease without esophagitis; J44.9 Chronic obstructive pulmonary disease, unspecified; Z91.040 Latex allergy status; Z91.048 Other nonmedicinal substance allergy status; Z88.1 Allergy status to other antibiotic agents; Z88.5 Allergy status to narcotic agent; Z88.8 Allergy status to other drugs, medicaments and biological substances; Z88.0 Allergy status to penicillin; Z91.09 Other allergy status, other than to drugs and biological substances; Z79.899 Other long term (current) drug therapy; W22.8XXA Striking against or struck by other objects, initial encounter
CPT/HCPCS: 99282

== ENCOUNTER 2023-10-20 20:45 | Inpatient (IN) | payer MEDICARE ==
[2023-10-20 21:56] LABS: BASOPHILS ABSOLUTE AUTO 0.05 K/uL (0.00-0.10); BASOPHILS PERCENT AUTO 0.6 % (0.1-1.3); EOSINOPHILS ABSOLUTE AUTO 0.03 K/uL (0.00-0.40); EOSINOPHILS PERCENT AUTO 0.3 % (0.0-5.4); HEMATOCRIT 41.7 % (34.3-46.0); HEMOGLOBIN 14.6 g/dL (11.2-15.5); IMMATURE GRAN ABSOLUTE AUTO 0.05 K/uL (0.00-0.23); IMMATURE GRAN PERCENT AUTO 0.6 % (0.0-0.7); LYMPHOCYTES ABSOLUTE AUTO 1.05 K/uL (0.8-3.3); LYMPHOCYTES PERCENT AUTO 12.2 % (11.4-47.7); MEAN CORPUSCULAR HEMOGLOBIN 31.1 pg (31.6-35.5); MEAN CORPUSCULAR VOLUME 88.9 fL (81.4-99.0); MONOCYTES ABSOLUTE AUTO 0.93 K/uL (0.20-0.90); MONOCYTES PERCENT AUTO 10.8 % (3.3-12.6); NEUTROPHILS ABSOLUTE AUTO 6.47 K/uL (1.0-7.6); NEUTROPHILS PERCENT AUTO 75.5 % (40.0-78.1); PLATELET COUNT,PLT 220 K/uL (130-375); RED BLOOD CELL COUNT 4.69 M/uL (3.77-5.24); WHITE BLOOD CELL COUNT,WBC 8.6 K/uL (3.2-11.0)
[2023-10-20 22:13] LABS: C-REACTIVE PROTEIN 4.89 mg/dL (<0.50); CALCIUM 9.5 mg/dL (8.5-10.1); CREATININE 0.8 mg/dL (0.6-1.0); EST CRCL DRUG DOSING (CG) 35.59 mL/min
[2023-10-21 01:30] LABS: MAGNESIUM 1.8 mg/dL (1.8-2.4)
[2023-10-21 01:37] LABS: APPEARANCE,URINE SLIGHTLY CLOUDY (CLEAR); BILIRUBIN,URINE NEGATIVE (NEGATIVE); COLOR,URINE YELLOW (YELLOW); GLUCOSE,URINE NEGATIVE (NEGATIVE); KETONES,URINE 40 mg/dL (NEGATIVE); LEUKOCYTE ESTERASE,URINE TRACE (NEGATIVE); NITRITE,URINE NEGATIVE (NEGATIVE); OCCULT BLOOD,URINE SMALL (NEGATIVE); PROTEIN,URINE 100 mg/dL (NEGATIVE)
[2023-10-21 01:45] LABS: AMORPHOUS SEDIMENT,URINE NOT SEEN; BACTERIA,URINE FEW; EPITHELIAL CELLS,URINE FEW; MUCUS,URINE NOT SEEN
[2023-10-21] MEDS ORDERED: Ondansetron 4 MG Tab.DIS PO PRN (02:17)
[2023-10-21] MEDS ORDERED: Non-Formulary Medication 1 Each (Albuterol/Ipratropium [Combivent Respimat] 4 GM Inhaler) INH SCH (02:17)
[2023-10-21] MEDS ORDERED: Bisacodyl 5 MG Tab PO PRN (02:17)
[2023-10-21] MEDS ORDERED: Docusate Sodium 100 MG Cap PO PRN (02:17)
[2023-10-21] MEDS ORDERED: Nitroglycerin 0.4 MG Tab.SL SL PRN (02:17)
[2023-10-21] MEDS ORDERED: Albuterol 0.083% 2.5 MG/3 ML Neb Soln NEB PRN (02:17)
[2023-10-21] MEDS: Sodium Chloride 0.9% 1,000 ML IV SCH (02:43)
[2023-10-21] MEDS: cefTRIAXone 1 GM in Sodium Chloride 0.9% 50 ML IV SCH ×2 (02:43→20:17)
[2023-10-21] MEDS: Acetaminophen 325 MG Tab PO PRN (02:45)
[2023-10-21] MEDS ORDERED: Melatonin 3 MG Tab PO PRN (03:34)
[2023-10-21] MEDS ORDERED: Albuterol/Ipratropium 3.0-0.5 MG/3 ML Neb Soln NEB SCH (06:00)
[2023-10-21] MEDS ORDERED: Azelastine 0.05% Ophth Soln 6 ML Bottle EYEBOTH SCH (06:00)
[2023-10-21] MEDS: Albuterol/Ipratropium 3.0-0.5 MG/3 ML Neb Soln NEB SCH (07:24)
[2023-10-21] MEDS: Formoterol/Mometasone 200-5 MCG 8.8 GM Inhaler IH SCH (07:24)
[2023-10-21] MEDS: Pantoprazole 40 MG Tab.CR PO SCH (08:24)
[2023-10-21] MEDS: Azithromycin 500 MG in Sodium Chloride 0.9% 250 ML IV SCH (17:29)
[2023-10-21] MEDS: Montelukast 10 MG Tab PO SCH (20:17)
[2023-10-21] MEDS: Diclofenac Sodium 1% Gel 100 GM Tube TOP SCH (21:19)
[2023-10-22] MEDS: [UNRECOGNIZED DRUG - OTHER] IARTIC ONE (13:10)
[2023-10-22] MEDS: [UNRECOGNIZED DRUG - OTHER] INJECT ONE (13:10)
[2023-10-22] MEDS ORDERED: [UNRECOGNIZED DRUG - OTHER] INJECT ONE (13:14)
[2023-10-22] MEDS ORDERED: [UNRECOGNIZED DRUG - OTHER] IM ONE (13:14)
[2023-10-23 11:34] VITALS: BP 102/49; PULSE 81
== END 2023-10-23 14:30 | DRG 690 ==
LOC: JP.ED 20:45 → JP.MS 10-21 01:52
PROVIDERS: ADMIT Hospitalist; ATTEND Hospitalist
DX: N30.01 Acute cystitis with hematuria (principal); M19.071 Primary osteoarthritis, right ankle and foot; R53.1 Weakness; R26.2 Difficulty in walking, not elsewhere classified; I50.32 Chronic diastolic (congestive) heart failure; I73.9 Peripheral vascular disease, unspecified; I25.10 Atherosclerotic heart disease of native coronary artery without angina pectoris; I12.9 Hypertensive chronic kidney disease with stage 1 through stage 4 chronic kidney disease, or unspecified chronic kidney disease; I50.9 Heart failure, unspecified; I25.2 Old myocardial infarction; Z79.899 Other long term (current) drug therapy; Z88.5 Allergy status to narcotic agent; Z91.041 Radiographic dye allergy status; Z91.040 Latex allergy status; Z91.048 Other nonmedicinal substance allergy status; Z88.0 Allergy status to penicillin; Z88.1 Allergy status to other antibiotic agents; Z88.8 Allergy status to other drugs, medicaments and biological substances; E86.0 Dehydration; M17.11 Unilateral primary osteoarthritis, right knee; J43.9 Emphysema, unspecified; I11.0 Hypertensive heart disease with heart failure; Z99.81 Dependence on supplemental oxygen; Z66 Do not resuscitate
CPT/HCPCS: 36415; 71045; 71045-26; 71250; 71250-26; 73562-26-RT; 73562-RT; 73600-26-RT; 73600-RT; 80048; 81001; 82150; 83735; 84443; 85025; 85379; 86140; 87086; 93926-RT; 93971-RT; 94640; 96125-GO; 97110-GP; 97161-GP; 97165-GO; 97530-GP; 99222; 99232; 99238; 99285; A9270-GY; J0456; J0665; J0696; J0702; J3490; J7030; J7050; J7620

== ENCOUNTER 2024-01-07 16:43 | Emergency (ER) | payer MEDICARE ==
[2024-01-07] MEDS ORDERED: Sodium Chloride 0.9% 10 ML Syringe FLUSH PRN (17:03)
[2024-01-07 17:07] LABS: BASOPHILS ABSOLUTE AUTO 0.05 K/uL (0.00-0.10); BASOPHILS PERCENT AUTO 0.7 % (0.1-1.3); EOSINOPHILS ABSOLUTE AUTO 0.18 K/uL (0.00-0.40); EOSINOPHILS PERCENT AUTO 2.5 % (0.0-5.4); HEMATOCRIT 44.5 % (34.3-46.0); HEMOGLOBIN 15.1 g/dL (11.2-15.5); IMMATURE GRAN ABSOLUTE AUTO 0.08 K/uL (0.00-0.23); IMMATURE GRAN PERCENT AUTO 1.1 % (0.0-0.7); LYMPHOCYTES PERCENT AUTO 16.3 % (11.4-47.7); MEAN CORPUSCULAR HEMOGLOBIN 30.9 pg (31.6-35.5); MEAN CORPUSCULAR HGB CONC 33.9 g/dL (31.6-35.5); MONOCYTES PERCENT AUTO 8.2 % (3.3-12.6); NEUTROPHILS ABSOLUTE AUTO 5.23 K/uL (1.0-7.6); NEUTROPHILS PERCENT AUTO 71.2 % (40.0-78.1); PLATELET COUNT,PLT 226 K/uL (130-375); RED BLOOD CELL COUNT 4.89 M/uL (3.77-5.24); WHITE BLOOD CELL COUNT,WBC 7.3 K/uL (3.2-11.0)
[2024-01-07 17:27] LABS: PROTHROMBIN TIME 9.9 sec (9.2-10.6); PTT,PARTIAL THROMBOPLSTIN TIME 24.3 sec (21.8-27.3)
[2024-01-07 17:28] LABS: ALANINE AMINOTRANSFERASE,ALT 18 U/L (12-78); ALBUMIN 3.7 g/dL (3.4-5.0); ALKALINE PHOSPHATASE 93 U/L (46-116); ASPARTATE AMNIOTRANSFERASE,AST 16 U/L (15-37); BILIRUBIN TOTAL 0.8 mg/dL (0.2-1.0); BLOOD UREA NITROGEN,BUN 20 mg/dL (7-18); C-REACTIVE PROTEIN 0.96 mg/dL (<0.50); CARBON DIOXIDE,CO2 27 mmol/L (21-32); CHLORIDE,CL 101 mmol/L (100-108); CREATININE 0.8 mg/dL (0.6-1.0); EST CRCL DRUG DOSING (CG) 35.59 mL/min; ESTIMATED GFR 71 mL/min (>60); GLUCOSE RANDOM 87 mg/dL (74-106); POTASSIUM,K 3.5 mmol/L (3.6-5.2); PROTEIN TOTAL,TP 7.5 g/dL (6.4-8.2); SODIUM,NA 138 mmol/L (140-148)
[2024-01-07 17:29] LABS: ANION GAP 13.5 mmol/L (5.0-14.0)
[2024-01-07] MEDS: Metoclopramide 10 MG/2 ML SDV IVPUSH ONE (18:13)
[2024-01-07] MEDS: hydrALAZINE 20 MG/ML SDV IVPUSH ONE (18:18)
[2024-01-07 18:25] VITALS: BP 166/82
[2024-01-07 18:57] VITALS: PULSE 54
[2024-01-07] MEDS: Metoprolol Tartrate 5 MG/5 ML SDV IVPUSH ONE (18:57)
== END 2024-01-07 19:13 | disposition home or self-care (01) ==
LOC: JP.ED 16:43
DX: I71.43 Infrarenal abdominal aortic aneurysm, without rupture (principal); R11.2 Nausea with vomiting, unspecified; I25.10 Atherosclerotic heart disease of native coronary artery without angina pectoris; I11.0 Hypertensive heart disease with heart failure; I50.9 Heart failure, unspecified; I25.2 Old myocardial infarction; J44.9 Chronic obstructive pulmonary disease, unspecified; Z79.899 Other long term (current) drug therapy; Z91.040 Latex allergy status; Z91.048 Other nonmedicinal substance allergy status; Z88.5 Allergy status to narcotic agent; Z88.1 Allergy status to other antibiotic agents; Z88.8 Allergy status to other drugs, medicaments and biological substances; Z88.0 Allergy status to penicillin
CPT/HCPCS: 36415; 80053; 85025; 85610; 85730; 86140; 86900; 86901; 93005; 96374; 96375; 99284; J0360; J2765

== ENCOUNTER 2024-10-17 10:01 | Emergency (ER) | payer MEDICAID, MEDICARE ==
[2024-10-17] MEDS: Acetaminophen 500 MG Tab PO ONE (12:37)
[2024-10-17 14:52] VITALS: BP 167/82; PULSE 62
== END 2024-10-17 14:19 | disposition home or self-care (01) ==
LOC: JP.ED 10:01
DX: I82.402 Acute embolism and thrombosis of unspecified deep veins of left lower extremity (principal); I11.0 Hypertensive heart disease with heart failure; I50.9 Heart failure, unspecified; E78.00 Pure hypercholesterolemia, unspecified; J44.89 Other specified chronic obstructive pulmonary disease; K21.9 Gastro-esophageal reflux disease without esophagitis; Z90.49 Acquired absence of other specified parts of digestive tract; Z79.899 Other long term (current) drug therapy; Z79.82 Long term (current) use of aspirin; Z91.040 Latex allergy status; Z91.048 Other nonmedicinal substance allergy status; Z88.8 Allergy status to other drugs, medicaments and biological substances; Z88.5 Allergy status to narcotic agent; Z88.1 Allergy status to other antibiotic agents; Z88.0 Allergy status to penicillin
CPT/HCPCS: 99283; A9270